=== PATIENT | female | born 1985 | race Caucasian/White ===

== ENCOUNTER → 2021-11-20 09:00 | Outpatient (BNVA) | payer OTHER, SELFPAY | PROVIDERS: PCP Nurse Practitioner Family; Visit Provider Nurse Practitioner Family ==

== ENCOUNTER → 2022-02-20 08:32 | Outpatient (BNVA) | payer OTHER, SELFPAY | PROVIDERS: PCP Nurse Practitioner Family; Visit Provider Psychiatry & Neurology Neurology | DX: G43.109 Migraine with aura, not intractable, without status migrainosus (principal); G24.3 Spasmodic torticollis | CPT/HCPCS: 64615; J0585 ==

== ENCOUNTER → 2022-07-03 09:14 | Outpatient (BNVA) | payer OTHER, SELFPAY | PROVIDERS: PCP Nurse Practitioner Family; Visit Provider Psychiatry & Neurology Neurology | DX: G43.109 Migraine with aura, not intractable, without status migrainosus (principal); G24.3 Spasmodic torticollis | CPT/HCPCS: 64615; J0585 ==

== ENCOUNTER → 2022-10-08 08:36 | Outpatient (BNVA) | payer OTHER, SELFPAY | PROVIDERS: PCP Nurse Practitioner Family; Visit Provider Psychiatry & Neurology Neurology | DX: G43.119 Migraine with aura, intractable, without status migrainosus (principal) | CPT/HCPCS: 64615; J0585 ==

== ENCOUNTER → 2022-11-06 12:58 | Outpatient (REF) | payer OTHER, SELFPAY | LOC: HO.SL 12:58 | PROVIDERS: PCP Nurse Practitioner Family; Visit Provider Nurse Practitioner Family | DX: Z13.89 Encounter for screening for other disorder (principal) ==

== ENCOUNTER → 2023-01-01 09:13 | Outpatient (BNVA) | payer OTHER, SELFPAY | PROVIDERS: PCP Nurse Practitioner Family; Visit Provider Psychiatry & Neurology Neurology | DX: G43.709 Chronic migraine without aura, not intractable, without status migrainosus (principal) | CPT/HCPCS: 64615; J0585 ==

== ENCOUNTER → 2023-04-16 16:12 | Outpatient (BNVA) | payer OTHER, SELFPAY | PROVIDERS: PCP Nurse Practitioner Family; Visit Provider Psychiatry & Neurology Neurology | DX: G43.119 Migraine with aura, intractable, without status migrainosus (principal); G43.709 Chronic migraine without aura, not intractable, without status migrainosus | CPT/HCPCS: 64615; J0585 ==

== ENCOUNTER 2023-07-28 15:36 | Outpatient (AMB) | payer OTHER, MEDICAID, SELFPAY ==
--- NOTE | 2023-07-28 15:37 | MHC.OFFVIS ---
Intake Vital Signs 07/28/23 15:38 Weight 223 lb 4 oz BP 118/78 Blood Pressure Location Lt brachial Position Sitting Pulse 86 Pulse Source Pulse Oximeter Pulse Oximetry (%) 98 Oxygen Delivery Method Room Air Intake Visit Reasons: Botox-confirmed Intake Note: Pt presents today for botox , last headache was 6/4 Allergies Sulfa (Sulfonamide Antibiotics) [SULFA(SULFONAMIDE ANTIBIOTICS)] Allergy (Severe, Verified 07/28/23 15:41) HIVES latex Allergy (Intermediate, Verified 07/28/23 15:41) Rash amphetamine [From Adderall] Allergy (Verified 07/28/23 15:41) Rash dextroamphetamine [From Adderall] Allergy (Verified 07/28/23 15:41) Rash aspartame [ASPARTAME] Adverse Reaction (Severe, Verified 07/28/23 15:41) HEADACHE [id number] Antimigraine Agents Adverse Reaction (Severe, Verified 07/28/23 15:41) Hives topiramate [From Topamax] Adverse Reaction (Intermediate, Verified 07/28/23 15:41) Confusion Medication List - Last Reconciled 07/28/23 by Octavia Hummel MD amoxicillin 500 mg PO DAILY baclofen 10 mg PO TID 30 days calcium polycarbophil (Fiber Therapy (ca polycarbophil)) 625 mg PO DAILY cariprazine (Vraylar) 6 mg PO DAILY dicyclomine 10 mg PO QID dihydroergotamine (Trudhesa) PRN; 1 actuation in each nostril x1, may repeat dose x1 after 1h Max: 4 actuations/day, 6 actuations/wk; 4 weeks dulaglutide (Trulicity) 1.5 mg subcut QWEEK empagliflozin (Jardiance) 25 mg PO DAILY flash glucose sensor (FreeStyle Monica 14 Day Sensor kit) As directed gabapentin 900 mg (3 x 300 mg) PO DAILY 30 days hydroxyzine HCl 100 mg PO DAILY levonorgestrel (Liletta) 19.5 mcg intrauterine ONCE lisdexamfetamine (Vyvanse) 20 mg PO DAILY metformin 1,000 mg PO BID onabotulinumtoxinA (Botox) 100 units subcut ONCE pantoprazole 40 mg PO BID quetiapine (Seroquel) 50 mg PO BEDTIME rimegepant (Nurtec ODT) 75 mg PO Q OTHER DAY rimegepant (Nurtec ODT) 75 mg PO Q OTHER DAY 30 days rosuvastatin 5 mg PO DAILY HPI HPI Comments History of Present Illness Details ? 38y/o female comes for treatment of migraines with botox. SInce being on botox and nurtec 75mg qod he rheadache days have decreased from 15 days per month to 0-1 headaches days a month ??? Most frequent reported adverse reactions following injection of botox for chronic migraine include neck pain (9%), headache(5%), eyelid ptosis(4%), migraine(4%), muscular weakness(4%), musculuskeletal stiffness(4%), bronchitis(3%), injection site pain (3%), musculoskeletal pain(3%), myalgia(3%), facial paresis(2%), HTN(2%) and muscle spasms(2%) were discussed in detail. ??? Botulinum toxin typeA 200units Lot no [id number] expiration Dec 2025 was diluted with 4 cc of normal saline . ??? Muscles injected- ??? Frontalis 4 sites ??? Procerus 1 site ??? Association Executive- 2 sites ??? Temporalis- 8 sites ??? Occipitalis- 6 sites ??? Cervical paraspinals- 4 sites ??? Trapezius- 6 sites- 10 units each ??? 5 units each in 31 site ??? Total use- 185units ??? Discarded-15units She did not tolerate ubrelvy , doing well with nurtec . she is allergic to triptans - sumatriptan, rizatriptan, almotriptan. she used trudhesa which helped her breakhrough pain.Nurtec helps with breakthrough headaches. 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 DTRs 2+ trhoughout. General: patient oriented x3 Office Procedures Botulinum toxin Injection 37906 - Migraine Procedure code (CPT) selection complete Office Meds onabotulinumtoxinA 200 unit solution for injection Performing Provider: Octavia Hummel MD Performing Location: [facility] Administered by: Octavia Hummel MD on 07/28/23 16:05 Dose Route Admin Location Dispensed Lot Number Expiration Date [facility] [employer] 200 unit subcut 200 units [id number] 12/10/25 0651-4177-49 ALLERGAN/BOTOX Comments: see HPI Assessment & Plan Assessment & Plan (1) Migraine with aura, intractable, without status migrainosus: Code(s): G43.119 - Migraine with aura, intractable, without status migrainosus (2) Chronic migraine without aura: Code(s): G43.709 - Chronic migraine without aura, not intractable, without status migrainosus Plan Patient tolerated the procedure well she will call with any side effects Patient s headache frequency has decreased to 0-1 migraine/month. Continue Gabapentin 900mg qam. Continue Baclofen 10mg- 1-3 x's per day. nurtec 75mg as needed for better control of migraines- Patient is allergic to triptans and did not respond to ubrelvy Try to resume yoga and core strengthening exercises. Orders: Orders AMB Botulinum toxin Injection Today G43.709 - Chronic migraine without aura, not intractable, without status migrainosus Coding Level of Care Code Est Pt Level 1 (68168) Diagnoses Migraine with aura, intractable, without status migrainosus G43.119 Chronic migraine without aura G43.709 CPT Codes Botox Injection - Botox 3: 10709 - Migraine ([id number])
[2023-07-28 15:38] VITALS: BP 118/78; PULSE 86; O2SAT 98
== END 2023-07-28 16:03 | disposition home or self-care (01) ==
PROVIDERS: PCP Nurse Practitioner Family; Visit Provider Psychiatry & Neurology Neurology
DX: G43.709 Chronic migraine without aura, not intractable, without status migrainosus (principal)
CPT/HCPCS: 64615

== ENCOUNTER → 2023-07-28 15:36 | Outpatient (BNVA) | payer OTHER, MEDICAID, SELFPAY | PROVIDERS: PCP Nurse Practitioner Family; Visit Provider Psychiatry & Neurology Neurology | DX: G43.709 Chronic migraine without aura, not intractable, without status migrainosus (principal); G43.119 Migraine with aura, intractable, without status migrainosus | CPT/HCPCS: 64615; 99211; J0585 ==

== ENCOUNTER 2023-10-27 15:00 | Outpatient (AMB) | payer OTHER, MEDICAID, SELFPAY ==
[2023-10-27 15:03] VITALS: BP 118/68; PULSE 88; O2SAT 98; BMI 34.9
--- NOTE | 2023-10-27 15:03 | MHC.OFFVIS ---
Intake Vital Signs 10/27/23 15:03 Height 5 ft 6 in Weight 216 lb 2 oz BMI 34.9 BP 118/68 Blood Pressure Location Rt brachial Position Sitting Pulse 88 Pulse Source Pulse Oximeter Pulse Oximetry (%) 98 Oxygen Delivery Method Room Air Intake Visit Reasons: Botox spasmodic torticollis vs. HARDIN - Conf Allergies Sulfa (Sulfonamide Antibiotics) [SULFA(SULFONAMIDE ANTIBIOTICS)] Allergy (Severe, Verified 10/27/23 15:06) HIVES latex Allergy (Intermediate, Verified 10/27/23 15:06) Rash amphetamine [From Adderall] Allergy (Verified 10/27/23 15:06) Rash dextroamphetamine [From Adderall] Allergy (Verified 10/27/23 15:06) Rash aspartame [ASPARTAME] Adverse Reaction (Severe, Verified 10/27/23 15:06) HEADACHE [id number] Antimigraine Agents Adverse Reaction (Severe, Verified 10/27/23 15:06) Hives topiramate [From Topamax] Adverse Reaction (Intermediate, Verified 10/27/23 15:06) Confusion Medication List - Last Reconciled 10/27/23 by Octavia Hummel MD amoxicillin 500 mg PO DAILY baclofen 10 mg PO TID 30 days cariprazine (Vraylar) 6 mg PO DAILY darifenacin ER 15 mg PO DAILY dicyclomine 10 mg PO QID dihydroergotamine (Trudhesa) PRN; 1 actuation in each nostril x1, may repeat dose x1 after 1h Max: 4 actuations/day, 6 actuations/wk; 4 weeks dulaglutide (Trulicity) 1.5 mg subcut QWEEK empagliflozin (Jardiance) 25 mg PO DAILY flash glucose sensor (FreeStyle Monica 14 Day Sensor kit) As directed gabapentin 900 mg (3 x 300 mg) PO DAILY 30 days hydroxyzine HCl 100 mg PO DAILY levonorgestrel (Liletta) 19.5 mcg intrauterine ONCE lisdexamfetamine (Vyvanse) 40 mg PO DAILY metformin 1,000 mg PO BID onabotulinumtoxinA (Botox) 100 units subcut ONCE pantoprazole 40 mg PO BID polyethylene glycol 3350 grams PO quetiapine (Seroquel) 50 mg PO BEDTIME rimegepant (Nurtec ODT) 75 mg PO Q OTHER DAY rimegepant (Nurtec ODT) 75 mg PO Q OTHER DAY 30 days rosuvastatin 5 mg PO DAILY HPI HPI Comments History of Present Illness Details ? 38y/o female comes for treatment of migraines with botox. How many migraine days prior to botox 20 migraine days a month How long do the migraines last 24-days Intensity of rlbyzwty86/10 ER visits related to migraine1-2 /year Effectiveness of botox from last two treatment(s) How many migraine days since receiving treatment: Change? in intensity of migraine? 0-1/month Change in frequency of migraine?decreased Change in use of acute medication for migraine?decreased Change in quality of life?good ER visits related to migraine?none Have at least three months elapsed since last treatment (Last botox date - frequency of injections) 07/2023 SInce being on botox and nurtec 75mg qod her headache days have decreased from 15 days per month to 0-1 headaches days a month ??? Most frequent reported adverse reactions following injection of botox for chronic migraine include neck pain (9%), headache(5%), eyelid ptosis(4%), migraine(4%), muscular weakness(4%), musculuskeletal stiffness(4%), bronchitis(3%), injection site pain (3%), musculoskeletal pain(3%), myalgia(3%), facial paresis(2%), HTN(2%) and muscle spasms(2%) were discussed in detail. ??? Botulinum toxin typeA 200units Lot no [id number] expiration February 2026 was diluted with 4 cc of normal saline . ??? Muscles injected- ??? Frontalis 4 sites ??? Procerus 1 site ??? Loading And Unloading Supervisor- 2 sites ??? Temporalis- 8 sites ??? Occipitalis- 6 sites ??? Cervical paraspinals- 4 sites ??? Trapezius- 6 sites- 10 units each ??? 5 units each in 31 site ??? Total use- 185units ??? Discarded-15units She did not tolerate ubrelvy , doing well with nurtec . she is allergic to triptans - sumatriptan, rizatriptan, almotriptan. she used trudhesa which helped her breakhrough pain.Nurtec helps with breakthrough headaches. 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 DTRs 2+ trhoughout. General: patient oriented x3 Office Procedures Botulinum toxin Injection 19804 - Migraine Procedure code (CPT) selection complete Office Meds onabotulinumtoxinA 200 unit solution for injection Performing Provider: Octavia Hummel MD Performing Location[place] [facility] Administered by: Octavia Hummel MD on 10/27/23 15:30 Dose Route Admin Location Dispensed Lot Number Expiration Date [facility] Technologist Development 185 unit IM 200 units [id number] 02/07/26 6560-8718-06 ALLERGAN/BOTOX Comments: see HPI Assessment & Plan Assessment & Plan (1) Migraine with aura, intractable, without status migrainosus: Code(s): G43.119 - Migraine with aura, intractable, without status migrainosus (2) Chronic migraine without aura: Code(s): G43.709 - Chronic migraine without aura, not intractable, without status migrainosus Plan Patient tolerated the procedure well she will call with any side effects Patient s headache frequency has decreased to 0-1 migraine/month. Continue Gabapentin 900mg qam. Continue Baclofen 10mg- 1-3 x's per day. nurtec 75mg as needed for better control of migraines- Patient is allergic to triptans and did not respond to ubrelvy Try to resume yoga and core strengthening exercises. Orders: Orders AMB Botulinum toxin Injection Today G43.709 - Chronic migraine without aura, not intractable, without status migrainosus Coding Level of Care Code Est Pt Level 1 (23249) Diagnoses Migraine with aura, intractable, without status migrainosus G43.119 Chronic migraine without aura G43.709 CPT Codes Botox Injection - Botox 3: 56944 - Migraine ([id number])
== END 2023-10-27 15:27 | disposition home or self-care (01) ==
PROVIDERS: PCP Nurse Practitioner Family; Visit Provider Psychiatry & Neurology Neurology
DX: G43.119 Migraine with aura, intractable, without status migrainosus (principal)
CPT/HCPCS: 64615

== ENCOUNTER → 2023-10-27 15:00 | Outpatient (BNVA) | payer OTHER, MEDICAID, SELFPAY | PROVIDERS: PCP Nurse Practitioner Family; Visit Provider Psychiatry & Neurology Neurology | DX: G43.709 Chronic migraine without aura, not intractable, without status migrainosus (principal); G43.119 Migraine with aura, intractable, without status migrainosus; Z79.899 Other long term (current) drug therapy | CPT/HCPCS: 64615; 99211; J0585 ==

== ENCOUNTER 2023-12-01 15:00 | Outpatient (AMB) | payer OTHER, MEDICAID, SELFPAY ==
--- NOTE | 2023-12-01 15:06 | MHC.OFFVIS ---
Intake Vital Signs 12/01/23 15:07 Height 5 ft 6 in Weight 216 lb BMI 34.9 BP 120/84 Blood Pressure Location Rt brachial Position Sitting Pulse 97 Pulse Source Pulse Oximeter Pulse Oximetry (%) 99 Oxygen Delivery Method Room Air Intake Visit Reasons: follow up Intake Note: Patient presents for follow up. I keep knocking out behind the wheel, I keep asking for narcolepsy test. Allergies Sulfa (Sulfonamide Antibiotics) [SULFA(SULFONAMIDE ANTIBIOTICS)] Allergy (Severe, Verified 12/01/23 15:09) HIVES latex Allergy (Intermediate, Verified 12/01/23 15:09) Rash amphetamine [From Adderall] Allergy (Verified 12/01/23 15:09) Rash dextroamphetamine [From Adderall] Allergy (Verified 12/01/23 15:09) Rash aspartame [ASPARTAME] Adverse Reaction (Severe, Verified 12/01/23 15:09) HEADACHE [id number] Antimigraine Agents Adverse Reaction (Severe, Verified 12/01/23 15:09) Hives topiramate [From Topamax] Adverse Reaction (Intermediate, Verified 12/01/23 15:09) Confusion Medication List - Last Reconciled 12/01/23 by MIAH Ceja amoxicillin 500 mg PO DAILY baclofen 10 mg PO TID 30 days cariprazine (Vraylar) 6 mg PO DAILY darifenacin ER 15 mg PO DAILY dicyclomine 10 mg PO QID dihydroergotamine (Trudhesa) PRN; 1 actuation in each nostril x1, may repeat dose x1 after 1h Max: 4 actuations/day, 6 actuations/wk; 4 weeks dulaglutide (Trulicity) 1.5 mg subcut QWEEK empagliflozin (Jardiance) 25 mg PO DAILY flash glucose sensor (FreeStyle Monica 14 Day Sensor kit) As directed gabapentin 900 mg (3 x 300 mg) PO DAILY 30 days hydroxyzine HCl 100 mg PO DAILY levonorgestrel (Liletta) 19.5 mcg intrauterine ONCE lisdexamfetamine (Vyvanse) 40 mg PO DAILY lithium carbonate ER 300 mg PO BEDTIME metformin 1,000 mg PO BID onabotulinumtoxinA (Botox) 100 units subcut ONCE pantoprazole 40 mg PO BID polyethylene glycol 3350 grams PO quetiapine (Seroquel) 50 mg PO BEDTIME rimegepant (Nurtec ODT) 75 mg PO Q OTHER DAY rimegepant (Nurtec ODT) 75 mg PO Q OTHER DAY 30 days rosuvastatin 5 mg PO DAILY HPI HPI Comments History of Present Illness Details 38-yr-old female presents for f/u visit. Pt is concerned about increasing daytime sleepiness. 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 She feels a warm sensation come over her, and she falls into a microsleep even if in public. In the evening at home, if she sits down after 6pm, she will just fall asleep for hours. She is trying to optimize her sleep hygiene practices. Her psychiatrist recently increased her Vyvanse to 40mg qam to help with the excessive daytime sleepiness. Patient feels that has helped some, however every time the dose has been increased it is helped for short period time and then the effect has waned. She is followed closely by psychiatry and her therapist for management of her bipolar d/o and ADHD- which she feels is currently better controlled now. Endorses mild snoring. She may answer people in her sleep. Endorses sleep paralysis w/ seeing a black man standing in the corner- infrequent, more when she was younger. Endorses leg cramps. She does endorse episodes of dropping things- notes that she has a h/o left thoracic outlet syndrome. She does not believe that she has episodes of transient weakness a/w strong emotions. She has had sleep studies in the past- has not shown severe sleep apnea. Last HST, > 10 yrs ago, did not record sufficient data as pt's animals removed the tubing from her- she still has these animals. 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 Substance Use Type: Marijuana Questionnaire [place] Sleepiness Scale Questions Sitting and reading: high chance of dozing Watching TV: high chance of dozing Sitting inactive in a theater, movie etc.: would never doze As a passenger in a car for an hour without break: high chance of dozing Lying down in the afternoon when circumstances permit: high chance of dozing Sitting and talking to someone: slight chance of dozing Sitting quietly after lunch without alcohol: high chance of dozing In a car, while stopped for a few minutes in the traffic: would never doze ESS < 10: normal, ESS > 12: pathologic: 16 Physical Exam Vital Signs: Last Vital Signs Pulse 97 12/01/23 15:07 BP 120/84 12/01/23 15:07 Pulse Ox 99 12/01/23 15:07 Oxygen Delivery Method Room Air 12/01/23 15:07 BMI result Body Mass Index 34.9 Const General: cooperative and no acute distress Orientation/consciousness: patient oriented x3 Resp Effort & Inspection: normal respiratory effort and able to speak in complete sentences Neuro General: patient oriented x3 Cranial nerves: Yes CN's II-XII intact bilaterally Cognition (Neuro): normal cognition Psych Appearance: grossly normal Mental Status: mental status grossly normal Speech and movement: Normal speech and movement present Affect: normal affect Attitude: cooperative Assessment & Plan Assessment & Plan (1) Excessive daytime sleepiness: Code(s): G47.19 - Other hypersomnia (2) Sleep difficulties: Code(s): G47.9 - Sleep disorder, unspecified (3) Snoring: Code(s): R06.83 - Snoring (4) Spasmodic torticollis: Comment: left laterocollis Code(s): G24.3 - Spasmodic torticollis (5) 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 However some of her cataplexy like symptoms may also be explained by a history of left thoracic outlet syndrome and spasmodic torticollis. Patient is advised to undergo in-lab sleep study to assess for any underlying sleep apnea or periodic limb movements of sleep which may be affecting her sleep quality. A home sleep study is contraindicated for this patient as she has multiple animals in her home which which has interfered with conducting home sleep studies in the past. Discussed that if the in-lab sleep study is normal, I would advise patient to undergo an MSLT sleep study, however patient would need to be weaned off of all of her psychiatric medications for at least 3 weeks prior to the MSLT study. 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 In the meantime patient should continue Vyvanse 40 mg daily in the morning. Avoid driving long distances. Continue to optimize sleep hygiene practices. Follow-up in 4 months or sooner as needed This note is constructed using voice recognition software. While every effort has been made to ensure accuracy, dye tub operator errors may have been included. Orders: Orders RT PSG in-lab sleep study 12/01/23 G47.19 - Other hypersomnia, 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, G47.9 - Sleep disorder, unspecified, R06.83 - Snoring Coding Level of Care Code Est Pt Level 4 (20505) Diagnoses Excessive daytime sleepiness G47.19 Sleep difficulties G47.9 Snoring R06.83 Spasmodic torticollis G24.3 Cataplexy G47.411
[2023-12-01 15:07] VITALS: BP 120/84; PULSE 97; O2SAT 99; BMI 34.9
== END 2023-12-01 15:52 | disposition home or self-care (01) ==
PROVIDERS: PCP Nurse Practitioner Family; Visit Provider Nurse Practitioner Family
DX: G47.19 Other hypersomnia (principal); G47.9 Sleep disorder, unspecified; R06.83 Snoring; G24.3 Spasmodic torticollis; G47.411 Narcolepsy with cataplexy
CPT/HCPCS: 99214

== ENCOUNTER → 2023-12-01 15:00 | Outpatient (BNVA) | payer OTHER, MEDICAID, SELFPAY | PROVIDERS: PCP Nurse Practitioner Family; Visit Provider Nurse Practitioner Family ==

== ENCOUNTER → 2023-12-11 20:30 | Outpatient (REF) | payer OTHER, MEDICAID, SELFPAY | LOC: HO.SL 20:30 | PROVIDERS: PCP Nurse Practitioner Family; Visit Provider Nurse Practitioner Family | DX: G47.411 Narcolepsy with cataplexy (principal); G47.19 Other hypersomnia; R06.83 Snoring | CPT/HCPCS: 95810 ==

== ENCOUNTER → 2023-12-11 22:19 | Outpatient (BNV) | payer OTHER, MEDICAID, SELFPAY | PROVIDERS: PCP Nurse Practitioner Family; Visit Provider Internal Medicine | DX: R06.83 Snoring (principal) | CPT/HCPCS: 95810 ==

== ENCOUNTER 2024-01-26 15:23 | Outpatient (AMB) | payer OTHER, MEDICAID, SELFPAY ==
--- NOTE | 2024-01-26 15:27 | A.OFFVIS_ITS ---
Intake Vital Signs 01/26/24 15:28 Height 5 ft 6 in Weight 215 lb BMI 34.7 BP 108/62 Blood Pressure Location Rt brachial Position Sitting Respiration 16 Pulse 82 Pulse Source Pulse Oximeter Pulse Oximetry (%) 98 Oxygen Delivery Method Room Air Intake Visit Reasons: Botox-CONF Intake Note: Pt presents to the office for Botox injections. Occupational Analyst Required: No Allergies Sulfa (Sulfonamide Antibiotics) [SULFA(SULFONAMIDE ANTIBIOTICS)] Allergy (Severe, Verified 01/26/24 15:36) HIVES latex Allergy (Intermediate, Verified 01/26/24 15:36) Rash amphetamine [From Adderall] Allergy (Verified 01/26/24 15:36) Rash dextroamphetamine [From Adderall] Allergy (Verified 01/26/24 15:36) Rash aspartame [ASPARTAME] Adverse Reaction (Severe, Verified 01/26/24 15:36) HEADACHE Dqqcsorp-5-UL0 Antimigraine Agents Adverse Reaction (Severe, Verified 01/26/24 15:36) Hives topiramate [From Topamax] Adverse Reaction (Intermediate, Verified 01/26/24 15:36) Confusion valium Allergy (Mild, Uncoded 01/26/24 15:36) Fever Medication List - Last Reconciled 01/26/24 by Octavia Hummel MD amoxicillin 500 mg PO DAILY baclofen 10 mg PO TID 30 days cariprazine (Vraylar) 6 mg PO DAILY darifenacin ER 15 mg PO DAILY dicyclomine 10 mg PO QID dihydroergotamine (Trudhesa) PRN; 1 actuation in each nostril x1, may repeat dose x1 after 1h Max: 4 actuations/day, 6 actuations/wk; 4 weeks dulaglutide (Trulicity) 1.5 mg subcut QWEEK empagliflozin (Jardiance) 25 mg PO DAILY flash glucose sensor (FreeStyle Monica 14 Day Sensor kit) As directed gabapentin 900 mg (3 x 300 mg) PO DAILY 30 days hydroxyzine HCl 100 mg PO DAILY levonorgestrel (Liletta) 19.5 mcg intrauterine ONCE lisdexamfetamine (Vyvanse) 40 mg PO DAILY lithium carbonate ER 300 mg PO BEDTIME metformin 1,000 mg PO BID onabotulinumtoxinA (Botox) 100 units subcut ONCE pantoprazole 40 mg PO BID polyethylene glycol 3350 grams PO quetiapine (Seroquel) 50 mg PO BEDTIME rimegepant (Nurtec ODT) 75 mg PO Q OTHER DAY rimegepant (Nurtec ODT) 75 mg PO Q OTHER DAY 30 days rosuvastatin 5 mg PO DAILY HPI HPI Comments History of Present Illness Details ? 38y/o female comes for treatment of migraines with botox. How many migraine days prior to botox 20 migraine days a month How long do the migraines last 24-days Intensity of [id number]/ ER visits related to migraine1-2 /year Effectiveness of botox from last two treatment(s) How many migraine days since receiving treatment: Change? in intensity of migraine? 0-1/month Change in frequency of migraine?decreased Change in use of acute medication for migraine?decreased Change in quality of life?good ER visits related to migraine?none Have at least three months elapsed since last treatment (Last botox date - frequency of injections) 07/2023 SInce being on botox and nurtec 75mg qod her headache days have decreased from 15 days per month to 0-1 headaches days a month ??? Most frequent reported adverse reactions following injection of botox for chronic migraine include neck pain (9%), headache(5%), eyelid ptosis(4%), migraine(4%), muscular weakness(4%), musculuskeletal stiffness(4%), bronchitis(3%), injection site pain (3%), musculoskeletal pain(3%), myalgia(3%), facial paresis(2%), HTN(2%) and muscle spasms(2%) were discussed in detail. ??? Botulinum toxin typeA 200units Lot no [id number] expiration April 2026 was diluted with 4 cc of normal saline . ??? Muscles injected- ??? Frontalis 4 sites ??? Procerus 1 site ??? Integration Lead- 2 sites ??? Temporalis- 8 sites ??? Occipitalis- 6 sites ??? Cervical paraspinals- 4 sites ??? Trapezius- 6 sites- 10 units each ??? 5 units each in 31 site ??? Total use- 185units ??? Discarded-15units She did not tolerate ubrelvy , doing well with nurtec . she is allergic to triptans - sumatriptan, rizatriptan, almotriptan. she used trudhesa which helped her breakhrough pain.Nurtec helps with breakthrough headaches. 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 DTRs 2+ trhoughout. General: patient oriented x3 Office Procedures Botulinum toxin Injection 52088 - Migraine Procedure code (CPT) selection complete Office Meds onabotulinumtoxinA 200 unit solution for injection Performing Provider: Octavia Hummel MD Performing Location: [facility] [place] [facility] Administered by: Octavia Hummel MD on 01/26/24 15:53 Dose Route Admin Location Dispensed Lot Number Expiration Date [facility] Manager Corporate Responsibility 185 unit IM 200 units [id number] 04/09/26 4643-8115-39 ALLERGAN/BOTOX Comments: see HPI Assessment & Plan Assessment & Plan (1) Migraine with aura, intractable, without status migrainosus: Code(s): G43.119 - Migraine with aura, intractable, without status migrainosus (2) Chronic migraine without aura: Code(s): G43.709 - Chronic migraine without aura, not intractable, without status migrainosus Plan Patient tolerated the procedure well she will call with any side effects Patient s headache frequency has decreased to 0-1 migraine/month. Continue Gabapentin 900mg qam. Continue Baclofen 10mg- 1-3 x's per day. nurtec 75mg as needed for better control of migraines- Patient is allergic to triptans and did not respond to ubrelvy Try to resume yoga and core strengthening exercises. Orders: Orders AMB Botulinum toxin Injection Today G43.709 - Chronic migraine without aura, not intractable, without status migrainosus Coding Level of Care Code Est Pt Level 1 (86754) Diagnoses Migraine with aura, intractable, without status migrainosus G43.119 Chronic migraine without aura G43.709 CPT Codes Botox Injection - Botox 3: 32647 - Migraine ([id number])
[2024-01-26 15:28] VITALS: BP 108/62; PULSE 82; RESP 16; O2SAT 98; BMI 34.7
== END 2024-01-26 15:56 | disposition home or self-care (01) ==
PROVIDERS: PCP Nurse Practitioner Family; Visit Provider Psychiatry & Neurology Neurology
DX: G43.119 Migraine with aura, intractable, without status migrainosus (principal)
CPT/HCPCS: 64615

== ENCOUNTER → 2024-01-26 15:23 | Outpatient (BNVA) | payer OTHER, MEDICAID, SELFPAY | PROVIDERS: PCP Nurse Practitioner Family; Visit Provider Psychiatry & Neurology Neurology | DX: G43.E19 Chronic migraine with aura, intractable, without status migrainosus (principal); Z79.899 Other long term (current) drug therapy | CPT/HCPCS: 64615; 99211; J0585 ==

== ENCOUNTER 2024-03-29 15:05 | Outpatient (AMB) | payer OTHER, MEDICAID, SELFPAY ==
--- NOTE | 2024-03-29 15:08 | A.OFFVIS_ITS ---
Vital Signs 03/29/24 15:19 Height 5 ft 6 in Weight 212 lb 6 oz BMI 34.3 BP 115/80 Blood Pressure Location Rt brachial Position Sitting Pulse 93 Pulse Source Pulse Oximeter Pulse Oximetry (%) 97 Oxygen Delivery Method Room Air Intake Visit Reasons: 4 mo f/u-CONF Intake Note: Patient presents for 4 months f/u. keeps falling asleep in the afternoon. Would like a sleep study. Allergies Sulfa (Sulfonamide Antibiotics) [SULFA(SULFONAMIDE ANTIBIOTICS)] Allergy (Severe, Verified 01/26/24 15:36) HIVES latex Allergy (Intermediate, Verified 01/26/24 15:36) Rash amphetamine [From Adderall] Allergy (Verified 01/26/24 15:36) Rash dextroamphetamine [From Adderall] Allergy (Verified 01/26/24 15:36) Rash aspartame [ASPARTAME] Adverse Reaction (Severe, Verified 01/26/24 15:36) HEADACHE Xeeowcym-2-DM3 Antimigraine Agents Adverse Reaction (Severe, Verified 01/26/24 15:36) Hives topiramate [From Topamax] Adverse Reaction (Intermediate, Verified 01/26/24 15:36) Confusion Bensodezapine Allergy (Severe, Uncoded 03/29/24 15:14) Fever valium Allergy (Mild, Uncoded 01/26/24 15:36) Fever Medication List - Last Reconciled 03/29/24 by MIAH Ceja amoxicillin 500 mg PO DAILY baclofen 10 mg PO TID 30 days cariprazine (Vraylar) 6 mg PO DAILY darifenacin ER 15 mg PO DAILY dicyclomine 10 mg PO QID dihydroergotamine (Trudhesa) PRN; 1 actuation in each nostril x1, may repeat dose x1 after 1h Max: 4 actuations/day, 6 actuations/wk; 4 weeks dulaglutide (Trulicity) 1.5 mg subcut QWEEK empagliflozin (Jardiance) 25 mg PO DAILY flash glucose sensor (FreeStyle Monica 14 Day Sensor kit) As directed gabapentin 900 mg (3 x 300 mg) PO DAILY 30 days hydroxyzine HCl 100 mg PO DAILY levonorgestrel (Liletta) 19.5 mcg intrauterine ONCE lisdexamfetamine (Vyvanse) 40 mg PO DAILY lithium carbonate ER 300 mg PO BEDTIME melatonin mg PO metformin 1,000 mg PO BID onabotulinumtoxinA (Botox) 100 units subcut ONCE pantoprazole 40 mg PO BID polyethylene glycol 3350 grams PO quetiapine (Seroquel) 50 mg PO BEDTIME rimegepant (Nurtec ODT) 75 mg PO Q OTHER DAY 30 days rimegepant (Nurtec ODT) 75 mg PO Q OTHER DAY rosuvastatin 5 mg PO DAILY HPI Comments Details: 39-yr-old female presents for f/u visit for sleep difficulties. Interval in-lab PSG was negative for sleep apnea or PLMS d/o- w/ AHI 0.2/hr, O2 naidr 90%, and PLMS arousal index 2.2/hr. Pt reports she is having increasing hypersomnia, which is becoming more difficult to manage. She is easily able to fall asleep when inactive, even in the middle of eating. She continues on Vyvanse- for hypersomnia/ADHD, and Vraylar and Lithoum for her bipolar tx- per her psychiatric provider. She does wonder if she still needs the Gabapentin- was started for her thoracuc outlet syndrome s/s- however she feels these are better since she had sx intervention. Endorses mild snoring. She may answer people in her sleep. Endorses sleep paralysis w/ seeing a black man standing in the corner- infrequent, more so when she was younger. Endorses leg cramps. She does endorse episodes of dropping things- notes that she has a h/o left thoracic outlet syndrome. She does not believe that she has episodes of transient weakness a/w strong emotions. 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 Substance Use Type: Marijuana Physical Exam Vital Signs: Last Vital Signs Pulse 93 03/29/24 15:19 BP 115/80 03/29/24 15:19 Pulse Ox 97 03/29/24 15:19 Oxygen Delivery Method Room Air 03/29/24 15:19 BMI result Body Mass Index 34.3 Const General: cooperative and no acute distress Orientation/consciousness: patient oriented x3 Resp Effort & Inspection: normal respiratory effort and able to speak in complete sentences Neuro General: patient oriented x3 Cranial nerves: Yes CN's II-XII intact bilaterally Cognition (Neuro): normal cognition Psych Appearance: grossly normal Mental Status: mental status grossly normal Speech and movement: Normal speech and movement present Affect: normal affect Attitude: cooperative Assessment & Plan Assessment & Plan (1) Excessive daytime sleepiness: Code(s): G47.19 - Other hypersomnia Category: Medical (2) 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 She has symptoms suggestive of cataplexy. Pt is advised to undergo: LP for CSF studies- Basic CSF studies and Orexin-A/Hypocretin-1, CSF analysis- to assess for narcolepsy type I. Reviewed risks/benefits of LP, including but not limited to post-LP low-pressure headache. Reviewed post-LP care- rest, fluids, caffeiene, adn will rpovide short course of prn Fioricet for rescue. In-lab PSG w/ MSLT to assess fro narcolepsy versus hypersomnia. UA tox screen ordered- due day of MSLT. Wean off Gabapentin- decrease daily dose by 100mg q week until completely weaned off. Additional Gabapentin 100mg capsule order sent to facilitate this. Once MSLT booked, pt will need to slowly wean off her Vyvanse, Freer and Vraylar w/ goal of stopping at least 2-3 weeks prior to undergoing MSLT. Follow-up upon review of above. 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 CSF Total Protein Today G24.3 - Spasmodic torticollis, G43.709 - Chronic migraine without aura, not intractable, without status migrainosus, G47.19 - Other hypersomnia, 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 Immunofixation, CSF Today G24.3 - Spasmodic torticollis, G43.709 - Chronic migraine without aura, not intractable, without status migrainosus, G47.19 - Other hypersomnia, 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 Oligoclonal Banding Today G24.3 - Spasmodic torticollis, G43.709 - Chronic migraine without aura, not intractable, without status migrainosus, G47.19 - Other hypersomnia, 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, H54.62 - Unqualified visual loss, left eye, normal vision right eye Drug Screen Urine Today G47.19 - Other hypersomnia Other Ref Test - Misc Today G47.19 - Other hypersomnia, 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 RT sleep testing - MSLT 03/29/24 G47.19 - Other hypersomnia, 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 CSF Cell Ct w Diff X2 Today G24.3 - Spasmodic torticollis, G43.709 - Chronic migraine without aura, not intractable, without status migrainosus, G47.19 - Other hypersomnia, 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 200 mg (2 x 100 mg) PO DAILY 30 days 60 caps 3RF uuactpdhzm-bzpytnuudmxgv-sjhi 50-325-40 mg 1 - 2 caps PO Q4-6H 7 days PRN 24 caps 0RF post-LP headache MDD 6 Changed From gabapentin 900 mg (3 x 300 mg) PO DAILY 30 days 90 caps 3RF To gabapentin 600 mg (2 x 300 mg) PO DAILY 30 days 60 caps 3RF Coding Level of Care Code Est Pt Level 4 (26160) Diagnoses Excessive daytime sleepiness G47.19 Cataplexy G47.411 Sleep difficulties G47.9 Chronic migraine without aura G43.709
[2024-03-29 15:19] VITALS: BP 115/80; PULSE 93; O2SAT 97; BMI 34.3
== END 2024-03-29 16:04 | disposition home or self-care (01) ==
PROVIDERS: PCP Nurse Practitioner Family; Visit Provider Nurse Practitioner Family
DX: G47.19 Other hypersomnia (principal); G47.411 Narcolepsy with cataplexy; G47.9 Sleep disorder, unspecified; G43.709 Chronic migraine without aura, not intractable, without status migrainosus
CPT/HCPCS: 99214

== ENCOUNTER → 2024-03-29 15:05 | Outpatient (BNVA) | payer OTHER, MEDICAID, SELFPAY | PROVIDERS: PCP Nurse Practitioner Family; Visit Provider Nurse Practitioner Family ==

== ENCOUNTER 2024-04-27 08:57 | Outpatient (AMB) | payer OTHER, MEDICAID, SELFPAY ==
--- NOTE | 2024-04-27 09:05 | MHC.OFFVIS ---
Vital Signs 04/27/24 09:12 Height 5 ft 6 in Weight 210 lb 4 oz BMI 33.9 BP 115/70 Blood Pressure Location Rt brachial Position Sitting Pulse 89 Pulse Source Pulse Oximeter Pulse Oximetry (%) 98 Oxygen Delivery Method Room Air Intake Visit Reasons: Botox - Confirmed Intake Note: Patient presents for Botox. Allergies Sulfa (Sulfonamide Antibiotics) [SULFA(SULFONAMIDE ANTIBIOTICS)] Allergy (Severe, Verified 04/27/24 09:11) HIVES latex Allergy (Intermediate, Verified 04/27/24 09:11) Rash amphetamine [From Adderall] Allergy (Verified 04/27/24 09:11) Rash dextroamphetamine [From Adderall] Allergy (Verified 04/27/24 09:11) Rash aspartame [ASPARTAME] Adverse Reaction (Severe, Verified 04/27/24 09:11) HEADACHE Jrinfumw-3-PP8 Antimigraine Agents Adverse Reaction (Severe, Verified 04/27/24 09:11) Hives topiramate [From Topamax] Adverse Reaction (Intermediate, Verified 04/27/24 09:11) Confusion Bensodezapine Allergy (Severe, Uncoded 03/29/24 15:14) Fever valium Allergy (Mild, Uncoded 01/26/24 15:36) Fever Medication List - Last Reconciled 04/27/24 by Octavia Hummel MD amoxicillin 500 mg PO DAILY baclofen 10 mg PO TID 30 days ynvtttewol-mruovnjuugxfc-uvrh 50-325-40 mg 1 - 2 caps PO Q4-6H PRN 7 days MDD 6 cariprazine (Vraylar) 6 mg PO DAILY dicyclomine 10 mg PO QID dihydroergotamine (Trudhesa) PRN; 1 actuation in each nostril x1, may repeat dose x1 after 1h Max: 4 actuations/day, 6 actuations/wk; 4 weeks dulaglutide (Trulicity) 1.5 mg subcut QWEEK empagliflozin (Jardiance) 25 mg PO DAILY flash glucose sensor (FreeStyle Monica 14 Day Sensor kit) As directed gabapentin 200 mg (2 x 100 mg) PO DAILY 30 days gabapentin 600 mg (2 x 300 mg) PO DAILY 30 days hydroxyzine HCl 100 mg PO DAILY levonorgestrel (Liletta) 19.5 mcg intrauterine ONCE lisdexamfetamine (Vyvanse) 40 mg PO DAILY lithium carbonate ER 300 mg PO BEDTIME melatonin mg PO metformin 1,000 mg PO BID onabotulinumtoxinA (Botox) 100 units subcut ONCE pantoprazole 40 mg PO BID polyethylene glycol 3350 grams PO rimegepant (Nurtec ODT) 75 mg PO Q OTHER DAY 30 days rimegepant (Nurtec ODT) 75 mg PO Q OTHER DAY rosuvastatin 5 mg PO DAILY HPI Comments Details: ? 39y/o female comes for treatment of migraines with botox. How many migraine days prior to botox 20 migraine days a month How long do the migraines last 24-days Intensity of jjhqqizu77/10 ER visits related to migraine1-2 /year Effectiveness of botox from last two treatment(s) How many migraine days since receiving treatment: Change? in intensity of migraine? 0-1/month Change in frequency of migraine?decreased Change in use of acute medication for migraine?decreased Change in quality of life?good ER visits related to migraine?none Have at least three months elapsed since last treatment (Last botox date - frequency of injections) 01/30 SInce being on botox and nurtec 75mg qod her headache days have decreased from 15 days per month to 0-1 headaches days a month ??? Most frequent reported adverse reactions following injection of botox for chronic migraine include neck pain (9%), headache(5%), eyelid ptosis(4%), migraine(4%), muscular weakness(4%), musculuskeletal stiffness(4%), bronchitis(3%), injection site pain (3%), musculoskeletal pain(3%), myalgia(3%), facial paresis(2%), HTN(2%) and muscle spasms(2%) were discussed in detail. ??? Botulinum toxin typeA 200units Lot no [id number] expiration April 2026 was diluted with 4 cc of normal saline . ??? Muscles injected- ??? Frontalis 4 sites ??? Procerus 1 site ??? Deputy Coroner Investigator- 2 sites ??? Temporalis- 8 sites ??? Occipitalis- 6 sites ??? Cervical paraspinals- 4 sites ??? Trapezius- 6 sites- 10 units each ??? 5 units each in 31 site ??? Total use- 185units ??? Discarded-15units She did not tolerate ubrelvy , doing well with nurtec . she is allergic to triptans - sumatriptan, rizatriptan, almotriptan. she used trudhesa which helped her breakhrough pain.Nurtec helps with breakthrough headaches. 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 Substance Use Type: Marijuana Physical Exam Vital Signs: Last Vital Signs Pulse 89 04/27/24 09:12 BP 115/70 04/27/24 09:12 Pulse Ox 98 04/27/24 09:12 Oxygen Delivery Method Room Air 04/27/24 09:12 BMI result Body Mass Index 33.9 Const General: cooperative and no acute distress Orientation/consciousness: patient oriented x3 Resp Effort & Inspection: normal respiratory effort and able to speak in complete sentences Neuro General: patient oriented x3 Cranial nerves: Yes CN's II-XII intact bilaterally Cognition (Neuro): normal cognition Psych Appearance: grossly normal Mental Status: mental status grossly normal Speech and movement: Normal speech and movement present Affect: normal affect Attitude: cooperative Office Procedures Botulinum toxin Injection 22945 - Migraine Procedure code (CPT) selection complete Office Meds onabotulinumtoxinA 200 unit solution for injection Performing Provider: Octavia Hummel MD [place] [facility] [place] [facility] Administered by: Octavia Hummel MD on 04/27/24 09:37 Dose Route Admin Location Dispensed Lot Number Expiration Date [facility] Database Security Expert 185 unit subcut 200 units [id number] 05/09/26 8050-8667-31 ALLERGAN/BOTOX Comments: see HPI Assessment & Plan Assessment & Plan (1) Migraine with aura, intractable, without status migrainosus: Code(s): G43.119 - Migraine with aura, intractable, without status migrainosus Category: Medical (2) Chronic migraine without aura: Code(s): G43.709 - Chronic migraine without aura, not intractable, without status migrainosus Category: Medical Plan Patient tolerated the procedure well she will call with any side effects Patient s headache frequency has decreased to 0-1 migraine/month. Continue Gabapentin 900mg qam. Continue Baclofen 10mg- 1-3 x's per day. nurtec 75mg as needed for better control of migraines- Patient is allergic to triptans and did not respond to ubrelvy Orders: Orders AMB Botulinum toxin Injection Today G43.709 - Chronic migraine without aura, not intractable, without status migrainosus Medications: New onabotulinumtoxinA 200 units subcut ONCE 1 ea 0RF migraine G43.709 - Chronic migraine without aura, not intractable, without status migrainosus Coding Level of Care Code Est Pt Level 1 (24651) Diagnoses Migraine with aura, intractable, without status migrainosus G43.119 Chronic migraine without aura G43.709 CPT Codes Botox Injection - Botox 3: 20121 - Migraine ([id number])
[2024-04-27 09:12] VITALS: BP 115/70; PULSE 89; O2SAT 98; BMI 33.9
== END 2024-04-27 09:29 | disposition home or self-care (01) ==
PROVIDERS: PCP Nurse Practitioner Family; Visit Provider Psychiatry & Neurology Neurology
DX: G43.E11 Chronic migraine with aura, intractable, with status migrainosus (principal)
CPT/HCPCS: 64615

== ENCOUNTER → 2024-04-27 08:57 | Outpatient (BNVA) | payer OTHER, MEDICAID, SELFPAY | PROVIDERS: PCP Nurse Practitioner Family; Visit Provider Psychiatry & Neurology Neurology | DX: G43.709 Chronic migraine without aura, not intractable, without status migrainosus (principal); G43.119 Migraine with aura, intractable, without status migrainosus; Z79.899 Other long term (current) drug therapy | CPT/HCPCS: 64615; 99211; J0585 ==

== ENCOUNTER 2024-05-03 09:31 | Outpatient (REF) | payer OTHER, MEDICAID, SELFPAY ==
--- NOTE | ~2024-05-03 | MR_ITS ---
EXAMINATION: MR BRAIN WITHOUT AND WITH CONTRAST CLINICAL INFORMATION: Narcolepsy with cataplexy. Worsening over last 3 years. Posterior pain and pressure/headaches. COMPARISON: No prior MRI. Correlation made with CT head 11/20/2014. TECHNIQUE: Multiplanar, multisequence MRI of the brain was obtained before and after the intravenous administration of 10 mL Gadavist. Exam was performed on a 1.5 Tracie unit. FINDINGS: There is no diffusion restriction. There is no intracranial hemorrhage, acute infarction, mass effect, or edema. There is no extra-axial fluid collection. Ventricles, sulci, and cisterns are normal in size and configuration for patient age. No shift of midline. No abnormal hemosiderin deposition is identified. There are a few scattered punctate foci of white matter T2 hyperintensity in the periventricular, subcortical, and hemispheric deep white matter, nonspecific. After the administration of contrast, no abnormal intra or extra-axial contrast enhancement is identified. Midline structures appear normally formed. Partial empty sella noted. Posterior fossa structures appear normal. Cerebellar tonsils are appropriately located. Major flow voids are preserved within the skull base. The globes and orbital contents demonstrate no abnormalities. Paranasal sinuses are clear bilaterally. Nasal septum is midline without spur. The mastoids and tympanic cavities are normally aerated. Extracranial soft tissues demonstrate no abnormalities. No suspicious bone marrow changes are evident. Atlantoaxial joint is normal. MR/MR head/brain wo/w con IMPRESSION: 1. No evidence of intracranial hemorrhage, acute infarction, mass effect, or edema. No abnormal contrast enhancement. 2. A few scattered punctate foci of white matter T2 hyperintensity in the supratentorial deep white matter, nonspecific, but most likely related to small vessel ischemia. No distribution or morphology specific to demyelinating disease. 3. Ancillary findings as detailed.
[2024-05-03] MEDS: gadobutroL 10 ML VIAL IVPUSH (10:39)
== END 2024-05-03 09:32 | disposition home or self-care (01) ==
LOC: HO.MRI 09:31
PROVIDERS: PCP Nurse Practitioner Family; Visit Provider Nurse Practitioner Family
DX: G47.411 Narcolepsy with cataplexy (principal); G24.3 Spasmodic torticollis; G43.709 Chronic migraine without aura, not intractable, without status migrainosus; G47.10 Hypersomnia, unspecified; R53.1 Weakness
CPT/HCPCS: 70553; A9585

== ENCOUNTER → 2024-05-03 10:13 | Outpatient (BNV) | payer OTHER, MEDICAID, SELFPAY | PROVIDERS: PCP Nurse Practitioner Family; Visit Provider Radiology Diagnostic Radiology | DX: G47.411 Narcolepsy with cataplexy (principal) | CPT/HCPCS: 70553 ==

== ENCOUNTER 2024-05-06 08:58 | Day surgery (SDC) | payer OTHER, MEDICAID, SELFPAY ==
--- NOTE | ~2024-05-06 | FL_ITS ---
FLUOROSCOPIC GUIDED LUMBAR PUNCTURE INDICATION: Concern for narcolepsy TECHNIQUE: Risks and benefits and possible complications were discussed with the patient and the consent form was signed. Patient was placed prone on the fluoroscopy table. The back was prepped and draped in routine sterile fashion. Betadine was used as a skin antiseptic. Utilizing fluoroscopic guidance, the L4-L5 interlaminar space was accessed with a 22 gague Meghan spinal needle and clear CSF fluid obtained. 12 cc of fluid was sent for analysis. The needle was removed without immediate complications. Total fluoroscopy time: 0.5 min FL/FL guided lumbar puncture LP IMPRESSION: Successful fluoroscopic guided lumbar puncture This procedure was performed by Kevin Aguero PA-C and supervised by Dr. Campbell.
--- OUTSIDE RECORDS SUMMARY | 2024-05-06 09:02 | XMS_ITS | Continuity of Care Document ---
Author Organization [facility] ter Address [address] [place] [address]- Care Team Providers Care Labor Relations Director Name Role Phone Pelon VILLA, Fadumo Tuttle Primary Care Physician Encounter [facility] Date(s): 02/29/24 - 02/29/[address] [address] Discharge Disposition: A-D/C Home Attending Physician: Abiola Zarate MD Admitting Physician: Abiola Zarate MD Referring Physician: Abiola Zarate MD Allergies, Adverse Reactions, Alerts Substance Reaction Severity Status sulfa drugs hives Active Valium Active Adderall 1 jorge indio syndrome Acti ve Latex irritation Active lamoTRIgine jorge indio syndrome Acti ve 1Patient reports rash with Adderall Immunizations Given and Recorded Vaccine Date Status Refusal Reason influenza virus vaccine, inactivated 08/18/23 Glynn rded influenza virus vaccine, inactivated 07/31/22 Glynn rded influenza virus vaccine, inactivated 08/21/21 Glynn rded influenza virus vaccine, inactivated 1 08/20/20 Gi marely influenza virus vaccine, inactivated 08/26/19 Glynn rded influenza virus vaccine, inactivated 08/28/18 Glynn rded influenza virus vaccine, inactivated 08/28/17 Glynn rded influenza virus vaccine, inactivated 06/24/16 Glynn rded SARS-CoV-2(COVID-19)mRNA-LNP vac([id number]) 08/18/23 Recorded [id number] 12y+ bivalent booster vax 07/31/22 Recorded SARS-CoV-2 (COVID-19) mRNA BNT-162b2 vac 08/21/21 Recorded SARS-CoV-2 (COVID-19) mRNA BNT-162b2 vac 01/25/21 Recorded SARS-CoV-2 (COVID-19) mRNA BNT-162b2 vac 2 01/02/21 Recorded Measles/Mumps/Rubella Virus Vaccine 03/22/21 Recor ded Measles/Mumps/Rubella Virus Vaccine 02/14/16 Recor ded hepatitis B adult vaccine 03/22/21 Recorded hepatitis B adult vaccine 03/13/16 Recorded hepatitis B adult vaccine 02/14/16 Recorded Influenza Virus Vaccine (oldterm) 06/29/19 Recorde d tetanus-diphtheria toxoids (Td) 06/29/19 Recorded tetanus/diphtheria/pertussis, acel(Tdap) 06/13/19 Recorded tetanus/diphtheria/pertussis, acel(Tdap) 11/09/13 Recorded 1Result Comment: [place] [id number] 2Result Comment: [facility] Medications Alcohol Pads See Instructions, # 200 each, Refills 5, Tot. Refills 5, Maintenance, Use when checking blood glucose up to 4 times a day E11.9, 05/21/23 16:16:00 EDT, Supply, 168, cm, 05/04/23 6:49:00 EDT, Height, 103, kg, 05/19/23 15:25:00 EDT, Dry Weight Start Date: 05/21/23 Status: Ordered baclofen 10 mg oral tablet 10 mg, 1, tablet, By Mouth, 3 times a day, # 90 tablet, Refills 5, Maintenance, 02/29/24 7:13:00 EDT, Partial fill upon patient request if the prescription is for a schedule II opioid drug. Start Date: 02/29/24 Status: Ordered Botox injection, every 3 months, 0 Refills, Maintenance, 09/13/21 7:17:00 EDT, Partial fill upon patient request if the prescription is for a schedule II opioid drug. Start Date: 09/13/21 Status: Ordered cariprazine 6 mg oral capsule 1 capsule = 6 mg, By Mouth, Daily, # 30 capsule, 4 Refills, Maintenance, 10/30/22 16:12:00 EST, [facility], Partial fill upon patient request if the prescription is for a schedule II opioid drug., 167.6, cm, 09/23/22 15:54:00 EST, Height... Start Date: 10/30/22 Status: Ordered Claritin 10 mg oral tablet 10 mg, 1, tablet, By Mouth, Daily, # 30 tablet, Refills 0, Maintenance, 09/13/21 7:19:00 EDT, Partial fill upon patient request if the prescription is for a schedule II opioid drug. Start Date: 09/13/21 Status: Ordered darifenacin 15 mg oral tablet, extended release 1 tablet = 15 mg, By Mouth, Daily, # 30 tablet, 3 Refills, Maintenance, 02/18/24 15:01:00 EDT, ER Tablet, [facility], Partial fill upon patient request if the prescription is for a schedule II opioid drug., 168, cm, 12/21/23 16:35:00 EST... Start Date: 02/18/24 Status: Ordered dicyclomine 10 mg oral capsule 1 capsule = 10 mg, By Mouth, 4 times a day, PRN pain/diarrhea, # 360 capsule, 0 Refills, Maintenance, 01/30/21 15:18:00 EDT, [facility], Partial fill upon patient request if the prescription is for a schedule II opioid drug., 166, c... Start Date: 01/30/21 Stop Date: 04/30/21 Status: Ordered Freestyle Lancets See Instructions, # 100 each, Refills 11, Tot. Refills 11, Maintenance, Use to check Blood Glucose 3 times a day. E11.65, 02/06/23 16:21:00 EDT, Supply, 166, cm, 12/11/22 12:57:00 EST, Height, 102.3,kg, 09/13/21 7:20:00 EDT, Dry Weight Start Date: 02/06/23 Status: Ordered FREESTYLE MONICA 14 DAY SENSO MISC FREESTYLE MONICA 14 DAY SENSO MISC, See Instructions, # 2 each, 6 Refills, CHANGE SENSOR EVERY 14 DAYS, 167.6, cm, 12/23/21 9:02:00 EST, Height, 102.3, kg, 09/13/21 7:20:00 EDT, Dry Weight Start Date: 04/14/22 Status: Ordered Freestyle Monica 3 Sensor Freestyle Monica 3 Sensor, See Instructions, # 2 each, Refills 11, Tot. Refills 11, Maintenance, Useto check BG up to 4 times a day with cell phone. E11.65, 04/30/23 8:15:00 EDT, Supply, 166, cm, 04/30/23 7:57:00 EDT, Height, 102.3, kg, 09/13/21 7:20... Start Date: 04/30/23 Status: Ordered Freestyle Lite Monitor See Instructions, # 1 each, Refills 0, Tot. Refills 0, Maintenance, Use to check BG 3 times a day. E11.65, 02/06/23 15:30:00 EDT, Supply, 166, cm, 12/11/22 12:57:00 EST, Height, 102.3, kg, 09/13/21 7:20:00 EDT, Dry Weight Start Date: 02/06/23 Status: Ordered Freestyle Lite Test Strips See Instructions, # 100 each, Refills 11, Tot. Refills 11, Maintenance, Use to check BG, three times a day. E11., 02/06/23 15:30:00 EDT, Supply, 166, cm, 12/11/22 12:57:00 EST, Height, 102.3, kg, 09/13/21 7:20:00 EDT, Dry Weight Start Date: 02/06/23 Status: Ordered gabapentin 300 mg oral capsule 900 mg, 3, capsule, By Mouth, Daily, # 90 capsule, Refills 3, Tot. Refills 3, Maintenance, 217:55:00 EST, Route to Pharmacy Electronically, [facility], 168, cm, 12/05/20 10:55:00 EST, Height, 110.5, kg, 04/23/20 14:28:00 EDT,... Start Date: 12/11/20 Status: Ordered hydrOXYzine hydrochloride 25 mg oral tablet 1 tablet = 25 mg, By Mouth, 4 times a day, PRN for anxiety, Shortage of 50mg at pharmacy., # 120 tablet, 1 Refills, Maintenance, 10/30/22 16:08:00 EST, Tablet, [facility], Partial fill upon patient request if the prescription is for a sc... Start Date: 10/30/22 Status: Ordered Jardiance 25 mg oral tablet 1 tablet, By Mouth, Daily in AM, # 90 tablet, 3 Refills, Maintenance, 04/30/23 8:14:00 EDT, [facility], 166, cm, 04/30/23 7:57:00 EDT, Height, 102.3, kg, 09/13/21 7:20:00 EDT, Dry Weight Start Date: 04/30/23 Status: Ordered Liletta 52 mg intrauterine device See Instructions, Bring to office for placement at scheduled appointment time., # 1 each, 0 Refills, Soft Stop, 01/01/21 12:41:00 EST, [facility], Partial fill upon patient request if the prescription is for a schedule II opioid drug., 166, cm, 12/12/20... Start Date: 01/01/21 Status: Ordered lithium 300 mg oral tablet, extended release 0 Refills, Maintenance, 12/21/23 16:35:00 EST, Partial fill upon patient request if the prescription is for a schedule II opioid drug. Start Date: 12/21/23 Status: Ordered magnesium aspartate = 1,230 mg, By Mouth, 2 times a day, 0 Refills, Maintenance, 02/23/24 9:48:00 EDT, Partial fill upon patient request if the prescription is for a schedule II opioid drug. Start Date: 02/23/24 Status: Ordered MetFORMIN (Eqv-Glucophage XR) 500 mg oral tablet, extended release 2 tablet, By Mouth, 2 times a day, # 360 tablet, 3 Refills, 04/30/23 8:15:00 EDT, [facility], 166, cm, 04/30/23 7:57:00 EDT, Height, 102.3, kg, 09/13/21 7:20:00 EDT, Dry Weight Start Date: 04/30/23 Status: Ordered metFORMIN 1000 mg oral tablet 1 tablet = 1,000 mg, By Mouth, 2 times a day, # 60 tablet, 0 Refills, Maintenance, 02/29/24 7:13:00EDT, Tablet, Partial fill upon patient request if the prescription is for a schedule II opioid drug. Start Date: 02/29/24 Status: Ordered Nurtec ODT 75 mg oral tablet, disintegrating 1 tablet = 75 mg, By Mouth, Every other day, 0 Refills, Maintenance, 05/01/23 9:24:00 EDT, Partial fill upon patient request if the prescription is for a schedule II opioid drug. Start Date: 05/01/23 Status: Ordered One Touch Control Solution See Instructions, # 1 each, Refills 0, Tot. Refills 0, Maintenance, Use to check Freestyle Monitor for accuracy of Blood Glucose readings. E11.65, 02/06/23 15:30:00 EDT, Supply, 166, cm, 12/11/22 12:57:00 EST, Height, 102.3, kg, 09/13/21 7:20:00 EDT,... Start Date: 02/06/23 Status: Ordered pantoprazole 40 mg oral delayed release tablet 1 tablet = 40 mg, By Mouth, Daily, # 30 tablet, 0 Refills, Maintenance, 02/29/24 7:13:00 EDT, EC Tablet Start Date: 02/29/24 Status: Ordered pantoprazole 40 mg oral delayed release tablet 1 tablet = 40 mg, By Mouth, 2 times a day, # 180 tablet, 2 Refills, Maintenance, 06/29/23 10:50:00 EDT, CR Tablet, 168, cm, 06/26/23 13:52:00 EDT, Height, 103, kg, 05/19/23 15:25:00 EDT, Dry Weight Start Date: 06/29/23 Status: Ordered rosuvastatin 5 mg oral tablet 1 tablet, By Mouth, Daily, # 90 tablet, 1 Refills, Maintenance, 12/15/23 8:58:00 EST, [facility], 168, cm, 08/18/23 9:57:00 EDT, Height, 103, kg, 05/19/23 15:25:00 EDT, Dry Weight Start Date: 12/15/23 Status: Ordered SEROquel 50 mg oral tablet 1 tablet = 50 mg, By Mouth, Daily at bedtime, 0 Refills, Maintenance, 05/01/23 9:25:00 EDT, Partialfill upon patient request if the prescription is for a schedule II opioid drug. Start Date: 05/01/23 Status: Ordered Trans Electrical nerve Stimulator for Myofascial Pain Syndrome M79.1 Trans Electrical nerve Stimulator for Myofascial Pain Syndrome M79.1, See Instructions, # 1 each, Refills 0, Tot. Refills 0, Maintenance, For Home Use, 03/26/21 8:38:00 EDT, Supply Start Date: 03/26/21 Status: Ordered Trudhesa = 0.725 mg, Once, 0 Refills, Maintenance, 02/23/24 9:47:00 EDT, Partial fill upon patient request if the prescription is for a schedule II opioid drug. Start Date: 02/23/24 Status: Ordered Trulicity Pen 0.75 mg/0.5 mL subcutaneous solution = 1.5 mg, Subcutaneous Infusion, Every 7 days, # 4 mL, 2 Refills, Maintenance, 12/31/23 12:27:00 EST, [facility], Partial fill upon patient request if the prescription is for a schedule II opioid drug., Danii cm, 12/21/23 16:35:00 EST, He... Start Date: 12/31/23 Status: Ordered Vyvanse 40 mg oral capsule 1 capsule = 40 mg, By Mouth, Daily in AM, # 30 capsule, 0 Refills, Maintenance, 02/12/24 17:15:00 EDT, Capsule, [id number], Partial fill upon patient request if the prescription is for a schedule II opioid drug., Danii cm, 12/21/23 16:... 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 Bipolar I disorder Confirmed Active Depression Confirmed Active Insomnia Confirmed Active Intertrigo Confirmed Active IBS (irritable bowel syndrome) Confirmed Active Migraine Confirmed Active Obese class I Confirmed Active Pulmonic stenosis Confirmed Active Thoracic outlet syndrome Confirmed Active Type 2 diabetes mellitus Confirmed Active 1repeat EGD in 2023 Vital Signs Most recent to oldest [Reference Range]: 1 2 3 Height 168 cm (02/29/24 7:40 AM) 168 cm (02/24/24 12:19 PM) Weight 94.2 kg (02/29/24 7:40 AM) 94.2 kg (02/24/24 12:19 PM) Oxygen Saturation [94-100 %] 100 % (02/29/24 8:45 AM) 98 % (02/29/24 8:30 AM) 100 % (02/29/24 8:15 AM) Pulse Rate [55-90 bpm] 77 bpm (02/29/24 7:40 AM) Body Mass Index [18.5-24.99 kg/m2] 33.38 kg/m2 *>HHI* (02/29/24 7:40 AM) 33.38 kg/m2 *>HHI* (02/24/24 12:19 PM) Blood Pressure [90-138/55-84 mm Hg] 113/80mm Hg (02/29/24 8:15 AM) 121/74mm Hg (02/29/24 8:00 AM) 109/71mm Hg (02/29/24 7:40 AM) Respiratory Rate [16-30 br/min] 19 br/min (02/29/24 8:30 AM) 18 br/min (02/29/24 8:15 AM) 15 br/min *L* (02/29/24 8:00 AM) Temperature [96.8-100.4 DegF] 97.6 DegF (02/29/24 8:30 AM) 97.4 DegF (02/29/24 8:00 AM) 97.5 DegF (02/29/24 7:40 AM) Liters per Minute 6 L/min (02/29/24 8:00 AM) Mode of Delivery (Oxygen) Room air (02/29/24 8:45 AM) Room air (02/29/24 8:30 AM) Room air (02/29/24 8:15 AM) Blood pressure sites Arm, right (02/29/24 7:40 AM) Temperature Route Temporal (02/29/24 8:00 AM) Temporal (02/29/24 7:40 AM) Dry Weight 94.2 kg (02/24/24 12:19 PM) Weight Obtained Via Standing scale (02/29/24 7:40 AM) Patient/family stated (02/24/24 12:19 PM) Dry Weight Obtained Via Patient/family s tated (02/24/24 12:19 PM) Social History Social History Type Response Smoking Status Former smoker, quit more than 30 days ago entered on: 12/12/20 Sex Note * Shae Yi RN: PERFORM Event Display: Discharge/Transfer Note Hospital Authored Date: [id number] Nursing Discharge Note Entered On: 02/29/2024 8:59 EDT Performed On: 02/29/2024 8:30 EDT by Shae Yi RN Nursing Discharge Note 2 Discharge Time : 02/29/2024 8:58 EDT Discharge Level of Care at Discharge : Home/Prison/Foster Care Patient Left Unit Via : Wheelchair Patient Accompanied Off Unit with : Responsible adult DC Instructions Provided & Signed by Pt : Yes Patient Understands D/C Instructions : Yes Verbalized Understanding of D/C Plan By : Patient Patient Instructions Discharge Signed : Yes Did Pt have Specialty Bed or Wound Vac : No Shae Yi RN - 02/29/2024 8:30 EDT * Shae Yi RN: PERFORM Event Display: Patient Education/Instruction Authored Date: [id number] Surgery Adult Discharge Instructions [address] [address] Name: LEXIE ALMARAZ : 1985?? Visit: 02/29/2024 05:53?? Current Date: 02/29/2024 08:08 ?? Account: [id number]?? Surgery Discharge Instructions We would like to thank you for allowing us to assist you with your healthcare needs. The following includes patient education materials and information regarding your injury/illness. Our entire staffstrives to provide an excellent experience for our patients and their families. PLEASE ENSURE YOU FOLLOW-UP PER THE INSTRUCTIONS BELOW! ?? YOUR OPINION IS IMPORTANT TO US! Please complete the survey you may receive by mail or email. Your feedback will be used to make improvements to the healthcare experiences of our patients and their families. Surveys are administered by [employer] ?? If further treatment with your primary care physician or another doctor is recommended, it is important for you to keep the appointment. Call your primary care physician or return to the Emergency Department immediately if your condition worsens, fails to improve, or new symptoms develop. If you need to find a doctor, you can call [facility] for a referral at [phone] or toll free at [phone] or log in to [email or web address].. ?? [facility], in keeping with [facility] guidance, no longer requires face masks for staff, patientsor visitors in most situations. Similiar to time spent indoors at other locations, there is the chance that you were exposed to repiratory viruses during your time with us (such as flu or COVID-19). If you develop symptoms concerning for a viral respiratory infection, please seek testing (and treatment if indicated) from your medical provider or home test kit. ?? You can view and manage your care through the patient portal or by using a health care audrey of your choosing. [facility] is a website that allows you to securely view your medical information including your hospital discharge summary, office visit summaries, medications and follow-up visits. You can also request appointments, renew medications, and request access to your medical information using a health care audrey of your choosing, or just ask a question. You are entitled to know the individuals who participated in your treatment. This information is available within your medical record and will be provided upon your request. You can enroll at [email or web address] or register d uring your next office visit. You have been discharged from [facility], Patient Care Unit: [facility]??. If you have any questions regarding these instructions after you leave, please call us and we will be happy to assist you. [facility] Your Care Team Attending Physician Elliot SYKES, Abiola Cameron?? Discharging Providers Linda Quezada MD Reason for Admission MIXED URINARY INCONTINENCE CYSTOSCOPY DS CS Primary Care Provider Pelon VILLA, Fadumo Tuttle? Advance Directive Health Care Proxy on File Yes - Health Care Proxy What to do next Instructions From Your Doctor ?? Orders? 02/29/24 7:58:00 EDT?? Instructions from your Care Team See printed information sheet. Scheduled Follow-Up Appointments 2023 3:00 PM EDT ?? With: Dylan Carmen NP Where: [facility] [address] [place] [address]- Status: Pending 2023 3:20 PM EDT ?? With: Olesya VILLA, Jennie Pascal Where: [facility] [address] [address]- Status: Pending You Need to Schedule the Following Appointments Follow Up with??Elliot SYKES, Abiola Cameron Where: [address] [facility] [address] [facility] [place] [address]- Business (1) Discharge Medications LEXIE ALMARAZ :1985 Visit Date:02/29/2024 Medications: Please continue your medications until treatment is completed or stopped by your provider. You may resume your daily prescription medications. Discuss any questions related to medications with your provider. What How Much When Instructions Next Dose Unchanged Baclofen (baclofen 10 mg oral tablet) 1 tab(s) Oral 3 times a day Unchanged cariprazine (cariprazine 6 mg oral capsule) 1 capsule Oral Daily Unchanged Darifenacin (darifenacin 15 mg oral tablet, extended release) 1 tab(s) Oral Daily Unchanged Dicyclomine (dicyclomine 10 mg oral capsule) 1 capsule Oral 4 times a day as needed for pain/diarrhea Duration: 90 Days Unchanged Dihydroergotamine (Trudhesa) 0.725 Milligram Once Unchanged dulaglutide (Trulicity Pen 0.75 mg/ 0.5 mL subcutaneous solution) 1.5 Milligram Subcutaneous Infusion Every 7 days Unchanged Durable Medical Equipment (Alcohol Pads) See instructions Use when checking blood glucose up to 4 times a day E11.9 ?? Unchanged Durable Medical Equipment (Freestyle Lancets) See instructions Use to check Blood Glucose 3 times a day. ??E11.65 ?? Unchanged Durable Medical Equipment (Freestyle Monica 3 Sensor) See instructions Use to check BG up to 4 times a day with cell phone. ??E11.65 ?? Unchanged Durable Medical Equipment (Freestyle Lite Monitor) See instructions Use to check BG 3 times a day. E11.65 ?? Unchanged Durable Medical Equipment (Freestyle Lite Test Strips) See instructions Use to check BG, three times a day. ??E11.65 ?? Unchanged Durable Medical Equipment (One Touch Control Solution) See instructions Use to check Freestyle Monitor for accuracy of Blood Glucose readings. ??E11.65 ?? Unchanged empagliflozin (Jardiance 25 mg oral tablet) 1 tab(s) Oral Daily in the morning Unchanged Gabapentin (gabapentin 300 mg oral capsule) 3 capsule Oral Daily Unchanged HydrOXYzine (hydrOXYzine hydrochloride 25 mg oral tablet) 1 tab(s) Oral 4 times a day as needed for for anxiety Shortage of 50mg at pharmacy. ?? Unchanged Levonorgestrel (Liletta 52 mg intrauterine device) See instructions Bring to office for placement at scheduled appointment time. ?? Unchanged lisdexamfetamine (Vyvanse 40 mg oral capsule) 1 capsule Oral Daily in the morning Unchanged [place] (lithium 300 mg oral tablet, extended release) Unchanged Loratadine (Claritin 10 mg oral tablet) 1 tab(s) Oral Daily Unchanged magnesium aspartate 1,230 Milligram Oral Twice a day Unchanged Metformin (MetFORMIN (Eqv-Glucophage XR) 500 mg oral tablet, extended release) 2 tab(s) Oral Twice a day Unchanged Metformin (metFORMIN 1000 mg oral tablet) 1 tab(s) Oral Twice a day Unchanged Miscellaneous Rx (FREESTYLE MONICA 14 DAY SENSO MISC) See instructions CHANGE SENSOR EVERY 14 DAYS ?? Unchanged Miscellaneous Rx (Trans Electrical nerve Stimulator for Myofascial Pain Syndrome M79.1) See instructions For Home Use ?? Unchanged onabotulinumtoxinA (Botox) injection every 3 months ?? Unchanged Pantoprazole (pantoprazole 40 mg oral delayed release tablet) 1 tab(s) Oral Twice a day Unchanged Pantoprazole (pantoprazole 40 mg oral delayed release tablet) 1 tab(s) Oral Daily Unchanged Quetiapine (SEROquel 50 mg oral tablet) 1 tab(s) Oral Daily at Bedtime Unchanged rimegepant (Nurtec ODT 75 mg oral tablet, disintegrating) 1 tab(s) Oral Every other day Unchanged Rosuvastatin (rosuvastatin 5 mg oral tablet) 1 tab(s) Oral Daily Allergies (NKA means No Known Allergies) Adderall??(jorge indio syndrome) Latex??(irritation) Valium lamoTRIgine??(jorge indio syndrome) sulfa drugs??(hives) Education Materials Below is the list of Educational Leaflet Providered with your Discharge Instructions. [employer] Patient Education - Surgery Medical Daystay Surgical Overnight Discharge Instructions?? [employer] Patient Education - ??NSAID Analgesic Schedule?? Valuables and Belongings I fully understand and agree that [facility] accepts no responsibility for all my personal property including clothing, toilet articles, radios, jewelry, dentures, hearing aids, rings, money, or any other property that is in my possession or is brought to me after admission. I understand certain valuables may be placed in a hospital safe for a short period of time. I understand that the hospital is not liable for loss or damage due to accident, fire, or other natural occurrence while said property is in the safe. I accept full responsibility for any personal property that I keep with me, and will not hold the hospital responsible in case of loss or disappearance. I acknowledge that i have been encouraged to send valuables and belongings home. ?? Review of Valuable and Belonging List: With patient Date for Pt to Sign Valuables/Belongings: 02/29/24 07:40:00 ?? Valuables & Belongings ?? Clothes Electronic devices Jewelry Monetary Items Personal devices Miscellaneous Medications (Valuables) Valuables at Bedside Jacket, Pants, Shirt, Shoes, Undergarments Cell phone ? Other: glucometer and sensor Valuables Sent Home ? Valuables Sent to Security ? Other Discharge Information ? Pulmonary Rehab Status?? Pulmonary Rehab Discharge Status?? Respiratory Rate:??15 br/min??Low ? Common Emergency Awareness Tips IS IT A STROKE? Act FAST and Check for these signs: FACE Does the face look uneven? ARM Does one arm drift down? SPEECH Does their speech sound strange? TIME Call at any sign of stroke ?? Heart Attack Signs Chest discomfort: Most heart attacks involve discomfort in the center of the chest and lasts more than a few minutes, or goes away and comes back. It can feel like uncomfortable pressure, squeezing, fullness or pain. Discomfort in upper body: Symptoms can include pain or discomfort in one or both arms, back, neck, jaw or stomach. Shortness of breath: With or without discomfort. Other signs: Breaking out in a cold sweat, nausea, or lightheaded. Remember, MINUTES DO MATTER. If you experience any of these heart attack warning signs, call to get immediate medical attention! ?? Smoking can increase your chances of developing chronic health problems and can cause harmful effects to other family members in your house. If you smoke, you are strongly encouraged to quit. Please call [facility] at [phone] or [phone] All Stars ([phone]) or log in to [email or web address] for referrals to smoking cessation programs. ?? The National Suicide Prevention Hotline is available 01/06 if you or someone you know needs to find a reason to keep living. By calling 1-699-881-Aerovance (4702) you'll be connected to a skilled, trained counselor at a crisis center in your area. SURGERY DISCHARGE INSTRUCTIONS SIGNATURE PAGE LEXIE ALMARAZ Location:[facility] Registration Date and Time:02/29/2024 05:53 EDT Primary Care Physician: Fadumo Bird NP, Attending Physician: Abiola Zarate MD, I LEXIE ALMARAZ, have received the above patient education materials/instructions and have verbalized understanding. If ambulance or transport services are being used I further acknowledge beinggiven a choice of service. ?? If you need to contact me, please call me at this number: . Patient/Medical Practice Manager Name: Patient/Medical Practice Manager Signature: Relationship to Patient: Witness Name/Signature: Date: * Shae Yi RN: PERFORM Event Display: Patient Education Leaflets Authored Date: [id number] Surgery Medical Daystay Surgical Overnight Discharge Instructions ?? 295 Medical Daystay/Surgical Overnight Discharge Instructions ? Since your coordination and judgment may be altered by medication and/or anesthesia, a responsible adult must drive you home from the hospital. ? If you have received medication for pain or sedation while under our care, you should not drive, operate machinery, drink alcohol, or sign any legal documents for 24 hours.?? You should have someone with you at home tonight. ? Remain at home the day of discharge.?? You may be up and about unless otherwise instructed by your physician. ? You may resume your daily prescription medication schedule.?? Any depressant medication should be avoided for 24 hours unless otherwise instructed by your surgeon or anesthesiologist. ? Call your physician for a follow-up appointment.? If you experience unusual or severe pain not relied by your pain medication, excessive bleedingor drainage, persistent nausea and vomiting, excessive swelling or redness, foul odor from incisionsite or fever over 100.6F, you need to call your physician. ? A follow-up phone call by a nurse will be made the day after your procedure.?? If you have stayed with us over night, you will not be receiving a follow-up phone call. ? Nausea and vomiting are a common side effect of prescription pain medication.?? We recommend that pills are not taken on an empty stomach.?? While taking any prescription pain medication you should not drive or drink alcohol. ? * [place], [place]: PERFORM Event Display: Patient Education Leaflets Authored Date: [id number] NSAID Analgesic Schedule ?? 604 NSAID???s Analgesic Schedule ?? Pain is the primary source of illness following your procedure and can include dehydration, difficulty and painful swallowing, and weight loss. These symptoms can lead to increased post-operative visits and hospital readmission. The best way to control pain is to take pain medications regularly. Your doctor has recommended both Ibuprofen and Acetaminophen (generic/store brands are okay, too). These can be picked up over the counter at your pharmacy of choice. Follow the instructions on the bottle to determine the proper dosage to give. The simplest way to take these medications it to rotate the two at 3-hour intervals. Here is a sample diagram. The time you take your medications may vary from this example. Do not give Ibuprofen more than every 6 hours or Acetaminophen every 4 hours. Do not give Acetaminophen if your doctor has given you a prescription that contains Acetaminophen. ? Patient Care team information Care Team Personnel Name: Tiffany Muhammad [place] Position: [facility] JULITO RN Member Role: Primary Care Nurse Name: Fadumo Bird NP Position: [facility] PCO Associate Professional Member Role: PCP Address: Address: [address] [place] [address] [place] [address]- Name: Maricel Boyce RN Position: [facility] Onco RN Member Role: Primary Care Nurse Care Team Related Persons Name: CARMITA ALMARAZ Address: [place] [address] Name: BROOKS ALMARAZ Address: home [address] [place] [address] Name: MAINE FELDMAN Address: home [address] [place] [address] Name: ROBER R[place]TER Address: [place] [address]
--- OUTSIDE RECORDS SUMMARY | 2024-05-06 09:02 | XMS_ITS | Continuity of Care Document ---
Author Organization [facility] Address [address] [place] [address]- Care Team Providers Care Automation Specialist Name Role Phone Pelon VILLA, Fadumo H Primary Care Physician [phone] Encounter [facility] Date(s): 09/23/22 - 10/23/22 [facility] [address] [place] [address]- Attending Physician: Bora Joseph Admitting Physician: Bora Joseph Referring Physician: Bora Joseph Allergies, Adverse Reactions, Alerts Substance Reaction Severity Status sulfa drugs Active Latex Active Adderall 1 Active Alti-LamoTRIgine 2 Active 1Patient reports rash with Adderall 2Per patient caused rash Immunizations Given and Recorded Vaccine Date Status Refusal Reason influenza virus vaccine, inactivated 07/31/22 Glynn rded influenza virus vaccine, inactivated 08/21/21 Glynn rded influenza virus vaccine, inactivated 1 08/20/20 Gi marely influenza virus vaccine, inactivated 08/26/19 Glynn rded influenza virus vaccine, inactivated 08/28/18 Glynn rded influenza virus vaccine, inactivated 08/28/17 Glynn rded influenza virus vaccine, inactivated 06/24/16 Glynn rded [id number] 12y+ bivalent booster vax 07/31/22 Recorded SARS-CoV-2 [...] Recorded tetanus/diphtheria/pertussis, acel(Tdap) 11/09/13 Recorded 1Result Comment: [place] [id number] 2Result Comment: [facility] Medications amoxicillin 500 mg oral tablet See Instructions, 4 tablet By Mouth 30-60 min prior to procedure., # 4 tablet, 3 Refills, Maintenance, 10/15/20 12:05:00 EST, [facility], Partial fill upon patient request if the prescription is for a schedule II opioid drug., 168, cm,... Start Date: 10/15/20 Status: Ordered baclofen 10 mg oral tablet See Instructions, 1 tablet By Mouth 2 to 3 times a day as needed for pain, # 90 tablet, Refills 3, Tot. Refills 3, Maintenance, 09/21/20 14:40:00 EST, Instructions Replace Required Details, Route to Pharmacy Electronically, [facility] Start Date: 09/21/20 Status: Ordered Botox injection, every 3 months, 0 Refills, Maintenance, 09/13/21 7:17:00 EDT, Partial fill upon patient request if the prescription is for a schedule II opioid drug. Start Date: 09/13/21 Status: Ordered cariprazine 6 mg oral capsule 1 capsule = 6 mg, By Mouth, Daily, # 30 capsule, 4 Refills, Maintenance, 07/31/22 16:49:00 EDT, [facility], Partial fill upon patient request if the prescription is for a schedule II opioid drug., 167.6, cm, 12/23/21 9:02:00 EST, Height,... Start Date: 07/31/22 Status: Ordered Claritin 10 mg oral tablet 10 mg, 1, tablet, By Mouth, Daily, # 30 tablet, Refills 0, Maintenance, 09/13/21 7:19:00 EDT, Partial fill upon patient request if the prescription is for a schedule II opioid drug. Start Date: 09/13/21 Status: Ordered darifenacin 7.5 mg oral tablet, extended release 1 tablet = 7.5 mg, By Mouth, Daily, # 30 tablet, 5 Refills, Maintenance, 10/13/22 13:55:00 EST, ER Tablet, [facility], Partial fill upon patient request if the prescription is for aschedule II opioid drug., 167.6, cm, 09/23/22 15:54:00... Start Date: 10/13/22 Status: Ordered dicyclomine 10 mg oral capsule 1 capsule = 10 mg, By Mouth, 4 times a day, PRN pain/diarrhea, # 360 capsule, 0 Refills, Maintenance, 01/30/21 15:18:00 EDT, [facility], Partial fill upon patient request if the prescription is for a schedule II opioid drug., 166, c... Start Date: 01/30/21 Stop Date: 04/30/21 Status: Ordered Emgality Prefilled Syringe 120 mg/mL subcutaneous solution = 120 mg, Subcutaneous Infusion, Every 28 days, # 3 each, 3 Refills, Maintenance, 03/09/20 15:25:00EDT, [facility], Please provide prefilled syringe instead of auto-injector pen, 168, cm, 03/05/20 15:02:00 EDT, Height, 106.6, kg, 11/05/... Start Date: 03/09/20 Status: Ordered Fiber Choice 1.5 g oral tablet, chewable 1 tablet = 1.5 Gm, Chew, 3 times a day, # 90 tablet, 6 Refills, Maintenance, 01/30/21 15:15:00 EDT,Chew Tablet, [facility], Partial fill upon patient request if the prescription isfor a schedule II opioid drug., 166, cm, 12/12/20 14:20... Start Date: 01/30/21 Stop Date: 08/28/21 Status: Ordered FREESTYLE MONICA 14 DAY SENSO MISC FREESTYLE MONICA 14 DAY SENSO MISC, See Instructions, # 2 each, 6 Refills, CHANGE SENSOR EVERY 14 DAYS, 167.6, cm, 12/23/21 9:02:00 EST, Height, 102.3, kg, 09/13/21 7:20:00 EDT, Dry Weight Start Date: 04/14/22 Status: Ordered FreeStyle Monica reader 2 FreeStyle Monica reader 2, See Instructions, # 1 each, Refills 0, Tot. Refills 0, Maintenance, Use to read Monica Sensor 5x daily. DxE11.9, 09/30/21 15:01:00 EST, Compound, 167.6, cm, 09/13/21 7:20:00 EDT, Height, 102.3, kg, 09/13/21 7:20:00 EDT, Dry We... Start Date: 09/30/21 Status: Ordered FreeStyle Monica sensors FreeStyle Monica sensors, See Instructions, # 2 each, Refills 6, Tot. Refills 6, Maintenance, Changesensor every 14 days. Dx E11.9, 09/30/21 15:01:00 EST, Compound, 167.6, cm, 09/13/21 7:20:00 EDT, Height, 102.3, kg, 09/13/21 7:20:00 EDT, Dry Weight Start Date: 09/30/21 Status: Ordered Freestyle Lite Lancets See Instructions, # 100 each, Refills 3, Tot. Refills 3, Maintenance, To measure blood sugar daily,07/11/21 9:10:00 EDT, Compound, 168, cm, 06/24/21 12:42:00 EDT, Height, 109, kg, 05/27/21 22:51:00 EDT, Dry Weight Start Date: 07/11/21 Status: Ordered Freestyle Lite Monitor See Instructions, # 1 each, Refills 0, Tot. Refills 0, Maintenance, To measure blood sugar daily, 07/16/21 7:45:00 EDT, Compound, 168, cm, 06/24/21 12:42:00 EDT, Height, 109, kg, 05/27/21 22:51:00 EDT, Dry Weight Start Date: 07/16/21 Status: Ordered Freestyle Lite Test Strips See Instructions, # 100 each, Refills 3, Tot. Refills 3, Maintenance, To measure blood sugar daily,07/11/21 9:10:00 EDT, Compound, 168, cm, 06/24/21 12:42:00 EDT, Height, 109, kg, 05/27/21 22:51:00 EDT, Dry Weight Start Date: 07/11/21 Status: Ordered FreeStyle Precision Wilfrido Test Strips FreeStyle Precision Wilfrido Test Strips, See Instructions, # 100 each, Refills 6, Tot. Refills 6, Maintenance, use to test BG 3 times per day. E 11.9, 09/30/21 15:01:00 EST, Compound, 167.6, cm, :20:00 EDT, Height, 102.3, kg, 09/13/21 7:20:00 ED... Start Date: 09/30/21 Status: Ordered gabapentin 300 mg oral capsule 900 mg, 3, capsule, By Mouth, Daily, # 90 capsule, Refills 3, Tot. Refills 3, Maintenance, :55:00 EST, Route to Pharmacy Electronically, [facility], 168, cm, 12/05/20 10:55:00 EST, Height, 110.5, kg, 04/23/20 14:28:00 EDT,... Start Date: 12/11/20 Status: Ordered hydrOXYzine hydrochloride 25 mg oral tablet 1 tablet = 25 mg, By Mouth, 4 times a day, PRN for anxiety, Shortage of 50mg at pharmacy., # 120 tablet, 1 Refills, Maintenance, 09/02/22 10:21:00 EDT, Tablet, [facility], Partial fill upon patient request if the prescription is for a sc... Start Date: 09/02/22 Status: Ordered Jardiance 25 mg oral tablet 1 tablet = 25 mg, By Mouth, Daily in AM, 1 tablet = 25 mg, By Mouth, Daily in AM. Needs to make an appt, # 90 tablet, 1 Refills, Maintenance, 09/18/22 15:09:00 EST, Tablet, [facility], 167.6, cm, 08/12/22 9:31:00 EDT, Height, 102.3, kg,... Start Date: 09/18/22 Status: Ordered Liletta 52 mg intrauterine device See Instructions, Bring to office for placement at scheduled appointment time., # 1 each, 0 Refills, Soft Stop, 01/01/21 12:41:00 EST, [facility], Partial fill upon patient request if the prescription is for a schedule II opioid drug., 166, cm, 12/12/20... Start Date: 01/01/21 Status: Ordered MetFORMIN (Eqv-Glucophage XR) 500 mg oral tablet, extended release 2 tablet, By Mouth, 2 times a day, # 360 tablet, 1 Refills, 07/28/22 11:05:00 EDT, [facility], 167.6, cm, 12/23/21 9:02:00 EST, Height, 102.3, kg, 09/13/21 7:20:00 EDT, Dry Weight Start Date: 07/28/22 Status: Ordered pantoprazole 40 mg oral delayed release tablet 1 tablet = 40 mg, By Mouth, 2 times a day, # 180 tablet, 2 Refills, Maintenance, 08/21/22 7:19:00 EDT, CR Tablet, 167.6, cm, 08/12/22 9:31:00 EDT, Height, 102.3, kg, 09/13/21 7:20:00 EDT, Dry Weight Start Date: 08/21/22 Status: Ordered promethazine 12.5 mg oral tablet 1 tablet = 12.5 mg, By Mouth, Every 6 hours, PRN for motion sickness, May take up to every 6 hours as needed for nausea and vomiting, # 84 tablet, 0 Refills, Maintenance, 10/13/22 9:59:00 EST, Tablet, [facility], Partial fill upon patien... Start Date: 10/13/22 Stop Date: 11/03/22 Status: Ordered rosuvastatin 5 mg oral tablet 1 tablet = 5 mg, By Mouth, Daily, # 90 tablet, 3 Refills, Maintenance, 12/23/21 9:30:00 EST, Tablet, [facility], Partial fill upon patient request if the prescription is for a schedule II opioid drug., 167.6, cm, 12/23/21 9:02:00 EST, He... Start Date: 12/23/21 Status: Ordered Trans Electrical nerve Stimulator for Myofascial Pain Syndrome M79.1 Trans Electrical nerve Stimulator for Myofascial Pain Syndrome M79.1, See Instructions, # 1 each, Refills 0, Tot. Refills 0, Maintenance, For Home Use, 03/26/21 8:38:00 EDT, Supply Start Date: 03/26/21 Status: Ordered Trulicity Pen 1.5 mg/0.5 mL subcutaneous solution = 1.5 mg, Subcutaneous Infusion, Every week, # 4 each, 2 Refills, Maintenance, 08/07/22 16:25:00 EDT, [facility], 167.6, cm, 12/23/21 9:02:00 EST, Height, 102.3, kg, 09/13/21 7:20:00 EDT, Dry Weight Start Date: 08/07/22 Status: Ordered Trulicity Pen 3 mg/0.5 mL subcutaneous solution 0.5 mL = 3 mg, Subcutaneous Injection, Every week, 0.5 ml = 3 mg, Subcutaneous Injection, Every week. E11.65 rotate injection sites, # 2 mL, 11 Refills, Maintenance, 10/21/22 16:30:00 EST, Solution, [facility], Partial fill upon patien... Start Date: 10/21/22 Status: Ordered Ubrelvy 100 mg oral tablet 1 tablet = 100 mg, By Mouth, Once, PRN as needed for migraine headache, may repeat dose in 2 hours if needed, # 16 tablet, 0 Refills, Maintenance, 02/25/21 23:55:00 EDT, Tablet, Partial fill upon patient request if the prescription is for a schedule I... 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 Bipolar I disorder Confirmed Active Depression Confirmed Active Mixed incontinence Confirmed Active Intertrigo Confirmed Active IBS (irritable bowel syndrome) Confirmed Active Migraine Confirmed Active Obese class II Confirmed Active Onychomycosis of multiple toenails with type 2 diabetes mellitus Confirmed Active Pulmonic stenosis Confirmed Active Thoracic outlet syndrome Confirmed Active Type 2 diabetes mellitus Confirmed Active 1repeat EGD in 2023 Social History Social History Type Response Smoking Status Former smoker, quit more than 30 days ago entered on: 12/12/20 Sex Female Patient Care team information Care Team Personnel Name: Tiffany Inman Position: [facility] RN Member Role: Primary Care Nurse Name: Fadumo Bird NP Position: [facility] PCO Associate Professional Member Role: PCP Address: Address: [address] [place] [address] [place] [address]- [place] Care Team Related Persons Name: CARMITA ALMARAZ Address: [place] [address] [facility] [address] Name: BROOKS ALMARAZ Address: home [address] [place] Name: MAINE FELDMAN Address: home [address] [place] [address]
--- OUTSIDE RECORDS SUMMARY | 2024-05-06 09:02 | XMS_ITS | Continuity of Care Document ---
Author Organization [facility] Address [address], [address] [place] [address]- Care Team Providers Care Earth Science Technician Name Role Phone Pelon VILLA, Fadumo Tuttle Primary Care Physician Encounter [facility] Date(s): 10/23/23 - 11/22/23 [facility] [address], [address] [place] [address]- Allergies, Adverse Reactions, Alerts Substance Reaction Severity Status sulfa drugs hives Active Adderall 1 jorge indio syndrome Acti [...] influenza virus vaccine, inactivated 06/24/16 Glynn rded [id number] 12y+ bivalent booster vax 07/31/22 Recorded SARS-CoV-2 [...] Recorded tetanus/diphtheria/pertussis, acel(Tdap) 11/09/13 Recorded 1[place] Comment: [place] [id number] 2Result Comment: [facility] Medications Alcohol Pads See Instructions, # 200 each, Refills 5, Tot. Refills 5, Maintenance, Use when checking blood glucose up to 4 times a day E11.9, 05/21/23 16:16:00 EDT, Supply, 168, cm, 05/04/23 6:49:00 EDT, Height, 103, kg, 05/19/23 15:25:00 EDT, Dry Weight Start Date: 05/21/23 Status: Ordered amoxicillin 500 mg oral tablet See Instructions, 4 tablet By Mouth 30-60 min prior to procedure., # 4 tablet, 3 Refills, Maintenance, 10/15/20 12:05:00 EST, [facility], Partial fill upon patient request [...] opioid drug. Start Date: 09/13/21 Status: Ordered clindamycin 1% topical solution 1 application, Topically, 2 times a day, Apply to areas prone to lesions twice daily, # 60 mL, 4 Refills, Maintenance, 08/18/23 13:02:00 EDT, Solution, [facility], Partial fill uponpatient request if the prescription is for a schedule I... Start Date: 08/18/23 Status: Ordered darifenacin 15 mg oral tablet, extended release 1 tablet = 15 mg, By Mouth, Daily, # 30 tablet, 3 Refills, Maintenance, 10/21/23 10:11:00 EST, ER Tablet, [facility], Partial fill upon patient request if the prescription is for a schedule II opioid drug., 168, cm, 08/18/23 9:57:00 EDT,... Start Date: 10/21/23 Status: Ordered dicyclomine 10 mg oral capsule [...] to check BG, three times a day. E11.65, 02/06/23 15:30:00 EDT, [...] Dry Weight Start Date: 04/30/23 Status: Ordered MiraLax oral powder for reconstitution = 17 Gm, By Mouth, Daily, dissolve in water before taking, # 255 Gm, 0 Refills, Maintenance, 05/01/23 9:22:00 EDT, [facility] Pow[facility], Partial fill upon patient request if the prescription is for a schedule II opioid drug. Start Date: 05/01/23 Status: Ordered Nurtec ODT 75 mg oral [...] tablet, By Mouth, Daily, # 90 tablet, 0 Refills, Maintenance, 09/27/23 15:49:00 EST, [facility], 168, cm, 08/18/23 9:57:00 EDT, Height, 103, kg, 05/19/23 15:25:00 EDT, Dry Weight Start Date: 09/27/23 Status: Ordered SEROquel 50 mg oral tablet [...] Subcutaneous Infusion, Every week, # 4 each, 11 Refills, Maintenance, 04/30/23 8:15:00 EDT, [facility], 166, cm, 04/30/23 7:57:00 EDT, Height, 102.3, kg, 09/13/21 7:20:00 EDT, Dry Weight Start Date: 04/30/23 Status: Ordered Vyvanse 30 mg oral capsule 1 capsule = 30 mg, By Mouth, Daily in AM, Fill when it's due, # 30 capsule, 0 Refills, Maintenance,12/29/22 15:59:00 EST, Capsule, [facility], Partial fill upon patient request if the prescription is for a schedule II opioid drug., 1 ca... 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 Bipolar I disorder Confirmed Active Depression Confirmed Active Mixed incontinence Confirmed Active Intertrigo Confirmed Active IBS (irritable bowel syndrome) Confirmed Active Migraine Confirmed Active Onychomycosis of multiple toenails with type 2 diabetes mellitus Confirmed Active Pulmonic stenosis Confirmed Active Severe obesity (BMI 35.0-39.9) with comorbidity Confirmed Active Thoracic outlet syndrome Confirmed Active Type 2 diabetes mellitus Confirmed Active 1repeat EGD in 2023 Social History Social History Type Response Smoking Status Former smoker, quit more than 30 days ago entered on: 12/12/20 Sex Patient Care team information Care Team Personnel Name: Tiffany Muhammad [place] Position: [facility] RN Member Role: Primary Care Nurse Name: Fadumo Bird NP Position: [facility] PCO Associate Professional Member Role: PCP Address: Address: [address] [place] [address] [place] [address]- Name: Maricel Boyce RN Position: [facility] Onco RN Member Role: Primary Care Nurse Care Team Related Persons Name: CARMITA ALMARAZ Address: home [address] [place], [place] Name: BROOKS ALMARAZ Address: [address] [place] [address] Name: MAINE FELDMAN Address: home [address] [place] [address] Name: ROBER RICHTER Address: home [place] [id number]
--- OUTSIDE RECORDS SUMMARY | 2024-05-06 09:02 | XMS_ITS | Continuity of Care Document ---
Author Organization [facility] Endocrinolo gy and Diabetes [place] Address [address] [place] [address]- Care Team Providers Care Cage Shift Manager Name Role Phone Pelon VILLA, Fadumo Tuttle Primary Care Physician Encounter [facility] Date(s): 02/06/23 - 03/08/23 [facility] Endocrinology and Diabetes [address] [address]- Allergies, Adverse Reactions, Alerts Substance Reaction Severity Status sulfa drugs Active Adderall 1 Active Latex Active Alti-LamoTRIgine 2 Active 1Patient reports rash [...] Glynn rded influenza virus vaccine, inactivated 06/24/16 Lgynn rded [id number] 12y+ bivalent booster vax 07/31/22 Recorded SARS-CoV-2 (COVID-19) mRNA BNT-162b2 vac 08/21/21 Recorded SARS-CoV-2 (COVID-19) mRNA BNT-162b2 vac 01/25/21 Recorded SARS-CoV-2 (COVID-19) mRNA BNT-162b2 vac 2 01/02/21 Recorded Measles/Mumps/Rubella Virus Vaccine 03/22/21 Recor ded Measles/Mumps/Rubella Virus Vaccine 02/14/16 Recor ded hepatitis B adult vaccine 03/22/21 Recorded hepatitis B adult vaccine 03/13/16 Recorded hepatitis B adult vaccine 02/14/16 Recorded Influenza Virus Vaccine (oldterm) 8/21/19 Recorde d tetanus-diphtheria toxoids (Td) 06/29/19 Recorded tetanus/diphtheria/pertussis, acel(Tdap) 06/13/19 Recorded tetanus/diphtheria/pertussis, acel(Tdap) 11/09/13 Recorded 1[place] Comment: [place] [id number] 2Result Comment: [facility] Medications amoxicillin 500 mg oral tablet See Instructions, 4 tablet By Mouth 30-60 min prior to procedure., # 4 tablet, 3 Refills, Maintenance, 10/15/20 12:05:00 EST, [facility], Partial fill [...] Daily, # 30 tablet, 5 Refills, Maintenance, 12/01/22 12:30:00 EST, ER Tablet, [facility], Partial fill upon patient request if the prescription is for a schedule II opioid drug., 167.6, cm, 09/23/22 15:54:00 E... Start Date: 12/01/22 Status: Ordered dicyclomine 10 mg oral capsule [...] Date: 01/30/21 Stop Date: 08/28/21 Status: Ordered Freestyle Lancets See Instructions, # [...] times a day with cell phone. E11.65, 01/06/23 15:22:00 EST, Supply, 166, cm, 12/11/22 12:57:00 EST, Height, 102.3, kg, 09/13/21 7:... Start Date: 01/06/23 Status: Ordered Freestyle Lite Monitor See Instructions, # 1 each, Refills 0, Tot. Refills 0, Maintenance, Use to check BG 3 times a day. E11, 02/06/23 15:30:00 EDT, Supply, 166, cm, 12/11/22 12:57:00 EST, Height, 102.3, kg, 09/13/21 7:20:00 EDT, Dry Weight Start Date: 02/06/23 Status: Ordered Freestyle Lite Test Strips See Instructions, # 100 each, Refills 11, Tot. Refills 11, Maintenance, Use to check BG, three times a day. E11, 02/06/23 15:30:00 EDT, Supply, 166, cm, 12/11/22 [...] a day, # 360 tablet, 1 Refills, 02/09/23 14:11:00 EDT, [facility], 166, cm, 12/11/22 12:57:00 EST, Height, 102.3, kg, 09/13/21 7:20:00 EDT, Dry Weight Start Date: 02/09/23 Status: Ordered MiraLax oral powder for reconstitution = 17 Gm, By Mouth, Daily, for 30 days, dissolve in water before taking, # 510 Gm, 1 Refills, Acute 04/14/23 15:59:00 EDT, 02/13/23 15:59:00 EDT, REC Powder, [facility], Partial fillupon patient request if the prescription is for a sched... Start Date: 02/13/23 Stop Date: 04/14/23 Status: Ordered One Touch Control Solution See [...] Dry Weight Start Date: 08/21/22 Status: Ordered rosuvastatin 5 mg oral tablet 1 tablet = 5 mg, By Mouth, Daily, # 90 tablet, 1 Refills, Maintenance, 12/16/22 7:23:00 EST, Tablet, [facility], Partial fill upon patient request if the prescription is for a schedule II opioid drug., 166, cm, 12/11/22 12:57:00 EST, Hei... Start Date: 12/16/22 Status: Ordered Trans Electrical nerve Stimulator for Myofascial Pain Syndrome M79.1 Trans Electrical nerve Stimulator for Myofascial Pain Syndrome M79.1, See Instructions, # 1 each, Refills 0, Tot. Refills 0, Maintenance, For Home Use, 03/26/21 8:38:00 EDT, Supply Start Date: 03/26/21 Status: Ordered Trulicity Pen 1.5 mg/0.5 mL subcutaneous solution = 1.5 mg, Subcutaneous Infusion, Every week, # 4 each, 11 Refills, Maintenance, 11/14/22 12:02:00 EST, [facility], 167.6, cm, 09/23/22 15:54:00 EST, Height, 102.3, kg, 09/13/21 7:20:00 EDT, Dry Weight Start Date: 11/14/22 Status: Ordered Vyvanse 30 mg oral capsule [...] Care Team Personnel Name: Tiffany Inman Position: [facility] RN Member Role: Primary Care Nurse Name: Fadumo Bird NP Position: [facility] Associate Professional Member Role: PCP Address: Address: [address] [place] [address] [place] [address]- Name: Maricel Boyce RN Position: [facility] Onco RN Member Role: Primary Care Nurse Care Team Related Persons Name: CARMITA ALMARAZ Address: home SAME [place], [place] Name: BROOKS ALMARAZ Address: home [place], [place] Name: MAINE FELDMAN Address: home [address] [place] [id number] Name: ROBER RICHTER Address: home [place]
--- OUTSIDE RECORDS SUMMARY | 2024-05-06 09:02 | XMS_ITS | Continuity of Care Document ---
Author Organization [facility] Endocrinolo gy and Diabetes [place] Address [address] [place] [address]- Care Team Providers Care Retail Sales Consultant Name Role Phone Pelon VILLA, Fadumo Tuttle Primary Care Physician Encounter [facility] Date(s): 01/27/23 - 02/26/23 [facility] Endocrinology and Diabetes [address] [address]- Allergies, Adverse Reactions, Alerts Substance Reaction Severity [...] influenza virus vaccine, inactivated 06/24/16 Glynn rded [id number] 12y+ bivalent booster vax 07/31/22 Recorded SARS-CoV-2 [...] Recorded tetanus/diphtheria/pertussis, acel(Tdap) 11/09/13 Recorded 1Result Comment: [place] [id number] 2Result Comment: [facility] Medications amoxicillin 500 mg oral tablet See [...] Care Team Personnel Name: Tiffany Inman Position: [facility] RN Member Role: Primary Care Nurse Name: Fadumo Bird NP Position: [facility] Associate Professional Member Role: PCP Address: Address: [address] [place] [address] [place] [address]- Name: Maricel Boyce RN Position: [facility] Onco RN Member Role: Primary Care Nurse Care Team Related Persons Name: CARMITA ALMARAZ Address: home SAME [place], [place] Name: BROOKS ALMARAZ Address: home [place], [place] Name: MAINE FELDMAN Address: home [address] [place] [id number] Name: ROBER RICHTER Address: home [place]
--- OUTSIDE RECORDS SUMMARY | 2024-05-06 09:02 | XMS_ITS | Continuity of Care Document ---
Author Organization [facility] Endocrinolo gy and Diabetes [place] Address [address] [place] [address]- Care Team Providers Care Customer Solutions Coordinator Name Role Phone Pelon VILLA, Fadumo Tuttle Primary Care Physician Encounter [facility] Date(s): 03/03/23 - 04/02/23 [facility] Endocrinology and Diabetes [place] [address] [place] [address]- Allergies, Adverse Reactions, Alerts Substance Reaction Severity [...] influenza virus vaccine, inactivated 06/24/16 Glynn rded [id number] 12y+ bivalent booster vax 07/31/22 Recorded SARS-CoV-2 [...] Recorded tetanus/diphtheria/pertussis, acel(Tdap) 11/09/13 Recorded 1[place] Comment: [place] [id number] 2Result Comment: [facility] Medications amoxicillin 500 mg oral tablet [...] Mouth, Daily in AM, # 90 tablet, 2 Refills, Maintenance, 03/16/23 8:06:00 EDT, [facility], 166, cm, 12/11/22 12:57:00 EST, Height, 102.3, kg, 09/13/21 7:20:00 EDT, Dry Weight Start Date: 03/16/23 Status: Ordered Liletta 52 mg intrauterine device [...] Care Team Personnel Name: Tiffany Inman Position: [facility] RN Member Role: Primary Care Nurse Name: Fadumo Bird NP Position: [facility] Associate Professional Member Role: PCP Address: Address: [address] [place] [address] [place] [address]- Name: Maricel Boyce RN Position: [facility] RN Member Role: Primary Care Nurse Care Team Related Persons Name: CARMITA ALMARAZ Address: home SAME [place], [place] Name: BROOKS ALMARAZ Address: home [place], [place] Name: MAINE FELDMAN Address: home [address] [place] [id number] Name: ROBER RICHTER Address: home [place], [place]
--- OUTSIDE RECORDS SUMMARY | 2024-05-06 09:03 | XMS_ITS | Continuity of Care Document ---
Author Organization [facility] Address [address], [address] [place] [address]- Care Team Providers Care Gis Professor Name Role Phone Pelon VILLA, Fadumo Tuttle Primary Care Physician [phone] Encounter [facility] Date(s): 11/05/22 - 12/05/22 [facility] [address] [place] [address]- Allergies, Adverse Reactions, Alerts Substance Reaction Severity Status sulfa drugs Active Adderall 1 Active Latex Active Alti-LamoTRIgine 2 Active 1Patient reports rash with Adderall 2Per patient caused rash Immunizations Given and Recorded Vaccine Date Status Refusal Reason influenza virus vaccine, inactivated 07/31/22 Glynn rded influenza virus vaccine, inactivated 08/21/21 Gylnn rded influenza virus vaccine, inactivated 1 08/20/20 Gi marely influenza virus vaccine, inactivated 08/26/19 Glynn rded influenza virus vaccine, inactivated 08/28/18 Glynn rded influenza virus vaccine, inactivated 08/28/17 Glynn rded influenza virus vaccine, inactivated 06/24/16 Glynn rded [id number] 12y+ bivalent booster vax 07/31/22 Recorded SARS-CoV-2 (COVID-19) mRNA BNT-162b2 vac 08/21/21 Recorded SARS-CoV-2 (COVID-19) mRNA BNT-162b2 vac 01/25/21 Recorded SARS-CoV-2 (COVID-19) mRNA BNT-162b2 vac 2 01/02/21 Recorded Measles/Mumps/Rubella Virus Vaccine 03/22/21 Recor ded Measles/Mumps/Rubella Virus Vaccine 02/14/16 Recor ded hepatitis B adult vaccine 03/22/21 Recorded hepatitis B adult vaccine 5/5/16 Recorded hepatitis B adult vaccine 02/14/16 Recorded Influenza Virus Vaccine (oldterm) 06/29/19 Recorde d tetanus-diphtheria toxoids (Td) 06/29/19 Recorded tetanus/diphtheria/pertussis, acel(Tdap) 06/13/19 Recorded tetanus/diphtheria/pertussis, acel(Tdap) 11/09/13 Recorded 1Result Comment: [place] [id number] 2Result Comment: [facility] Medications amoxicillin 500 mg oral tablet See [...] Start Date: 04/14/22 Status: Ordered Freestyle Monica 14 day sensor Freestyle Monica 14 day sensor, See Instructions, # 2 each, Refills 11, Tot. Refills 11, Maintenance, Use to check BG up to 4 times a day. E11.65, 11/14/22 16:15:00 EST, Supply, 167.6, cm, 09/23/22 15:54:00 EST, Height, 102.3, kg, 09/13/21 7:20:00 EDT... Start Date: 11/14/22 Status: Ordered FreeStyle Monica reader 2 FreeStyle [...] 11.9, 09/30/21 15:01:00 EST, Compound, 167.6, cm, 217:20:00 EDT, Height, 102.3, kg, 09/13/21 7:20:00 ED... [...] Dry Weight Start Date: 11/14/22 Status: Ordered Ubrelvy 100 mg oral tablet 1 tablet = 100 mg, By Mouth, Once, PRN as needed for migraine headache, may repeat dose in 2 hours if needed, # 16 tablet, 0 Refills, Maintenance, 02/25/21 23:55:00 EDT, Tablet, Partial fill upon patient request if the prescription is for a schedule I... Start Date: 02/25/21 Status: Ordered Vyvanse 20 mg oral capsule 1 capsule = 20 mg, By Mouth, Daily in AM, # 30 capsule, 0 Refills, Maintenance, 10/30/22 16:09:00 EST, Capsule, [facility], Partial fill upon patient request if the prescription is for a schedule II opioid drug., 167.6, cm, 09/23/22 15:5... Start Date: 10/30/22 Status: Ordered Problem List Condition Confirmation Course [...] Care Team Personnel Name: Tiffany Inman Position: [facility] RN Member Role: Primary Care Nurse Name: Fadumo Bird NP Position: [facility] Associate Professional Member Role: PCP Address: Address: [address] [place] [address] [place] [address]- Care Team Related Persons Name: CARMITA ALMARAZ Address: home SAME [place], [place] Name: BROOKS ALMARAZ Address: home [address] [place] [address] [address] [place], [place] Name: MAINE FELDMAN Address: home [address] [place] [address] Name: ROBER RICHTER Address: [place]
--- OUTSIDE RECORDS SUMMARY | 2024-05-06 09:03 | XMS_ITS | Continuity of Care Document ---
Author Organization [facility] Endocrinolo gy and Diabetes [place] Address [address] [place] [address]- Care Team Providers Care Licensed Architect Name Role Phone Pelon VILLA, Fadumo Tuttle Primary Care Physician Encounter [facility] Date(s): 01/06/23 - 02/05/23 [facility] Endocrinology and Diabetes [address] [address]- Allergies, Adverse Reactions, Alerts Substance Reaction Severity Status Latex Active sulfa drugs Active Adderall 1 Active Alti-LamoTRIgine 2 Active [...] influenza virus vaccine, inactivated 06/24/16 Glynn rded [id number] 12y+ bivalent booster vax 07/31/22 Recorded SARS-CoV-2 [...] Recorded tetanus/diphtheria/pertussis, acel(Tdap) 11/09/13 Recorded 1Result Comment: [place] [id number] 2Result Comment: [facility] Medications amoxicillin 500 mg oral tablet [...] 09/13/21 7:... Start Date: 01/06/23 Status: Ordered gabapentin 300 mg oral capsule [...] Care Team Personnel Name: Tiffany Inman Position: [facility] RN Member Role: Primary Care Nurse Name: Fadumo Bird NP Position: [facility] Associate Professional Member Role: PCP Address: Address: [address] [place] [address] [place] [address]- Care Team Related Persons Name: CARMITA ALMARAZ Address: home [place], [place] Name: BROOKS ALMARAZ Address: home [place], [place] Name: MAINE FELDMAN Address: home [address] [place] [address] Name: ROBER RICHTER Address: home [place], [place]
--- OUTSIDE RECORDS SUMMARY | 2024-05-06 09:03 | XMS_ITS | Continuity of Care Document ---
Author Organization [facility] Endocrinolo gy and Diabetes Address [address] [place] [address]- Care Team Providers Care Bulb Filler Name Role Phone Pelon VILLA, Fadumo Tuttle Primary Care Physician [phone] [place] [facility] Date(s): 09/23/22 - 10/23/22 [facility] Endocrinology and Diabetes [address] [place] [address] Allergies, Adverse Reactions, Alerts Substance Reaction Severity [...] influenza virus vaccine, inactivated 06/24/16 Glynn rded [id number] 12y+ bivalent booster vax 07/31/22 Recorded SARS-CoV-2 [...] tetanus/diphtheria/pertussis, acel(Tdap) 11/09/13 Recorded 1Result Comment: [place] [id number] 2Result Comment: [facility] Medications amoxicillin 500 mg oral tablet [...] Care Team Personnel Name: Tiffany Inman Position: [facility] RN Member Role: Primary Care Nurse Name: Fadumo Bird NP Position: [facility] Associate Professional Member Role: PCP Address: Address: [address] [place] [address] Primary Care [place], [place] [address] Care Team Related Persons Name: CARMITA ALMARAZ Address: home [place], [place] Name: BROOKS ALMARAZ Address: home [address] [place] [address] [address] [place], [place] Name: MAINE FELDMAN Address: home [address] [place] [address]
--- OUTSIDE RECORDS SUMMARY | 2024-05-06 09:03 | XMS_ITS | Continuity of Care Document ---
Author Organization [facility] Address [address] [place] [address]- Care Team Providers Care Thread Separator Name Role Phone Pelon VILLA, Fadumo Tuttle Primary Care Physician Encounter [facility] Date(s): 02/04/23 - 03/06/23 [facility] [address] [place] [address]- [place] Allergies, Adverse Reactions, Alerts Substance Reaction Severity [...] influenza virus vaccine, inactivated 06/24/16 Glynn rded [id number] 12y+ bivalent booster vax 07/31/22 Recorded SARS-CoV-2 [...] Recorded tetanus/diphtheria/pertussis, acel(Tdap) 11/09/13 Recorded 1[place] Comment: [place] [id number] 2Result Comment: [facility] Medications amoxicillin 500 mg oral tablet [...] Care Team Personnel Name: Tiffany Inman Position: [facility] RN Member Role: Primary Care Nurse Name: Fadumo Bird NP Position: [facility] Associate Professional Member Role: PCP Address: Address: [address] [place] [address] Primary Care [place], [place] [address] Name: Maricel Boyce RN Position: [facility] Onco RN Member Role: Primary Care Nurse Care Team Related Persons Name: CARMITA ALMARAZ Address: home SAME [place], [place] Name: BROOKS ALMARAZ Address: home [place], [place] Name: MAINE FELDMAN Address: home [address] [place] [address] Name: ROBER RICHTER Address: home [place], [place]
--- OUTSIDE RECORDS SUMMARY | 2024-05-06 09:03 | XMS_ITS | Continuity of Care Document ---
Author Organization [facility] Address [address] [place] [address]- Care Team Providers Care Fruit Preserver Name Role Phone Pelon VILLA, Fadumo H Primary Care Physician [facility] [facility] Date(s): 09/29/22 - 10/29/22 [facility] [address] [place] [address]- [place] Allergies, Adverse Reactions, Alerts Substance Reaction Severity Status sulfa drugs Active Adderall 1 Active Alti-LamoTRIgine 2 Active Latex Active 1Patient reports rash with Adderall 2Per [...] influenza virus vaccine, inactivated 06/24/16 Glynn rded [id number] 12y+ bivalent booster vax 07/31/22 Recorded SARS-CoV-2 [...] Recorded tetanus/diphtheria/pertussis, acel(Tdap) 11/09/13 Recorded 1Result Comment: [place] [id number] 2Result Comment: [facility] Medications amoxicillin 500 mg oral tablet [...] Refills, Maintenance, 07/31/22 16:49:00 EDT, [facility], Partial fill upon patient request [...] Care Team Personnel Name: Tiffany Inman Position: [facility] RN Member Role: Primary Care Nurse Name: Fadumo Bird NP Position: [facility] Associate Professional Member Role: PCP Address: Address: [address] [place] [address] Care Team Related Persons Name: CARMITA ALMARAZ Address: [place] [address] Name: BROOKS ALMARAZ Address: home [address] [place] [address] [address] [place], [place] Name: MAINE FELDMAN Address: home [address] [place] [address]
--- OUTSIDE RECORDS SUMMARY | 2024-05-06 09:03 | XMS_ITS | Continuity of Care Document ---
Author Organization [facility] Endocrinolo gy and Diabetes [place] Address [address] [place] [address]- Care Team Providers Care Professor Of Anthropology Name Role Phone Pelon VILLA, Fadumo Tuttle Primary Care Physician Encounter [facility] Date(s): 11/14/22 - 12/14/22 [facility] Endocrinology and Diabetes [place] [address] [place] [address]- Allergies, Adverse Reactions, Alerts Substance Reaction Severity [...] influenza virus vaccine, inactivated 06/24/16 Glynn rded [id number] 12y+ bivalent booster vax 07/31/22 Recorded SARS-CoV-2 [...] tetanus/diphtheria/pertussis, acel(Tdap) 11/09/13 Recorded 1Result Comment: [place] [phone] 2Result Comment: [facility] Medications amoxicillin 500 mg oral tablet See [...] 01/30/21 Stop Date: 08/28/21 Status: Ordered FREESTYLE MAVIS 14 DAY SENSO MISC FREESTYLE MAVIS 14 DAY SENSO MISC, See Instructions, # 2 each, 6 Refills, CHANGE SENSOR EVERY 14 DAYS, 167.6, cm, 12/23/21 9:02:00 EST, Height, 102.3, kg, 09/13/21 7:20:00 EDT, Dry Weight Start Date: 04/14/22 Status: Ordered gabapentin 300 mg oral capsule [...] Weight Start Date: 11/14/22 Status: Ordered Vyvanse 20 mg oral capsule 1 capsule = 20 mg, By Mouth, Daily in AM, Last filled- 11/10/22, # 30 capsule, 0 Refills, Maintenance, 12/08/22 7:30:00 EST, Capsule, [facility], Partial fill upon patient request if the prescription is for a schedule II opioid drug., 167.... Start Date: 12/08/22 Status: Ordered Problem List Condition Confirmation Course [...] Care Team Personnel Name: Tiffany Inman Position: [facility] RN Member Role: Primary Care Nurse Name: Fadumo Bird NP Position: [facility] Associate Professional Member Role: PCP Address: Address: [address] [place] [address] [place] [address]- Care Team Related Persons Name: CARMITA ALMARAZ Address: [place] [address] Name: BROOKS ALMARAZ Address: home [place], [place] Name: MAINE FELDMAN Address: home [address] [place] [address] Name: ORBER RICHTER Address: home [place], [place]
--- OUTSIDE RECORDS SUMMARY | 2024-05-06 09:03 | XMS_ITS | Continuity of Care Document ---
Author Organization [facility] Endocrinolo gy and Diabetes [place] Address [address] [place] [address]- Care Team Providers Care Medical Stenographer Name Role Phone Pelon VILLA, Fadumo Tuttle Primary Care Physician Encounter [facility] Date(s): 04/30/23 - 05/30/23 [facility] [place] [address] [place], [place] [address] Attending Physician: AdmBora waters Admitting Physician: Admtr, Ar8 Referring Physician: Admtr, Ar8 Allergies, Adverse Reactions, Alerts Substance Reaction Severity [...] influenza virus vaccine, inactivated 06/24/16 Glynn rded [id number] 12y+ bivalent booster vax 07/31/22 Recorded SARS-CoV-2 [...] Recorded tetanus/diphtheria/pertussis, acel(Tdap) 11/09/13 Recorded 1Result Comment: [place] [id number] 2Result Comment: [facility] Medications Alcohol Pads See Instructions, # 200 [...] Refills, Maintenance, 10/15/20 12:05:00 EST, [facility], Partial fill upon patient request [...] Daily, # 30 tablet, 0 Refills, Maintenance, 05/25/23 10:54:00 EDT, ER Tablet, [facility], Partial fill upon patient request if the prescription is for a schedule II opioid drug., 168, cm, 05/04/23 6:49:00 EDT,... Start Date: 05/25/23 Status: Ordered dicyclomine 10 mg oral capsule [...] Daily, # 90 tablet, 1 Refills, Maintenance, 05/25/23 11:11:00 EDT, [facility], 168, cm, 05/04/23 6:49:00 EDT, Height, 103, kg, 05/19/23 15:25:00 EDT, Dry Weight Start Date: 05/25/23 Status: Ordered SEROquel 50 mg oral tablet [...] Supply Start Date: 03/26/21 Status: Ordered Trudhesa 0.725 mg/spray nasal spray = 1.45 mg, Nares, Both, 2 times a day, PRN as needed for migraine headache, 0 Refills, Maintenance,05/01/23 9:25:00 EDT, Partial fill upon patient request if the prescription is for a schedule II opioid drug. Start Date: 05/01/23 Status: Ordered Trulicity Pen 1.5 mg/0.5 mL [...] Team Personnel Name: Tiffany Muhammad [place] Position: [facility] RN Member Role: Primary Care Nurse Name: Fadumo Bird NP Position: [facility] Associate Professional Member Role: PCP Address: Address: [address] [place] [address] [place] [address]- Name: Maricel Boyce RN Position: [facility] Onco RN Member Role: Primary Care Nurse Care Team Related Persons Name: CARMITA ALMARAZ Address: [place] [address] Name: BROOKS ALMARAZ Address: [place] [address] Name: MAINE FELDMAN Address: home [address] [place] [address] Name: UNK, UNK Address: home X [place]ST[place]olene [place] [address]
--- OUTSIDE RECORDS SUMMARY | 2024-05-06 09:04 | XMS_ITS | Continuity of Care Document ---
Author Organization [facility] Address [address] [facility], [address] [address]- Care Team Providers Care Digital Media Coordinator Name Role Phone Pelon VILLA, Fadumo Tuttle Primary Care Physician [phone] [place] [facility] [place] - 11/05/22 [facility] [address] [facility], 4th [place], [place] [address] Allergies, Adverse Reactions, Alerts Substance Reaction [...] influenza virus vaccine, inactivated 06/24/16 Glynn rded [id number] 12y+ bivalent booster vax 07/31/22 Recorded SARS-CoV-2 [...] tetanus/diphtheria/pertussis, acel(Tdap) 11/09/13 Recorded 1Result Comment: [place] [id number] 2Result Comment: [facility] Medications amoxicillin 500 mg oral tablet See [...] Maintenance, 10/30/22 16:09:00 EST, Capsule, [facility], [...] Care Team Personnel Name: Tiffany Inman Position: [facility] RN Member Role: Primary Care Nurse Name: Fadumo Bird NP Position: [facility] Associate Professional Member Role: PCP Address: Address: [address] [place] [address] [place] [address]- Care Team Related Persons Name: CARMITA ALMARAZ Address: home [place], [place] Name: BROOKS ALMARAZ Address: home [address] [place] [address] [address] [place], [place] Name: MAINE FELDMAN Address: home [address] [place] [address]
--- OUTSIDE RECORDS SUMMARY | 2024-05-06 09:04 | XMS_ITS | Continuity of Care Document ---
Author Organization [facility] Address [address] [place] [address]- Care Team Providers Care Casework Supervisor Name Role Phone Pelon VILLA, Fadumo Tuttle Primary Care Physician [phone] Encounter [facility] Date(s): 10/21/22 - 11/27/22 [facility] [address] [place] [address]- Attending Physician: Danilo Fernandez MD Referring Physician: Fadumo Bird NP Allergies, Adverse Reactions, Alerts Substance Reaction Severity [...] influenza virus vaccine, inactivated 06/24/16 Glynn rded [id number] 12y+ bivalent booster vax 07/31/22 Recorded SARS-CoV-2 [...] tetanus/diphtheria/pertussis, acel(Tdap) 11/09/13 Recorded 1Result Comment: [place] [id number] 2Result Comment: [facility] Medications amoxicillin 500 mg oral tablet See [...] Refills, Maintenance, 11/14/22 12:02:00 EST, [facility], 167.6, cm, 09/23/22 15:54:00 EST, [...] Maintenance, 10/30/22 16:09:00 EST, Capsule, [facility], Partial fill upon patient request [...] Care Team Personnel Name: Tiffany Inman Position: [facility] RN Member Role: Primary Care Nurse Name: Fadumo Bird NP Position: [facility] Associate Professional Member Role: PCP Address: Address: [address] [place] [address] [place] [address]- [place] Care Team Related Persons Name: CARMITA ALMARAZ Address: home SAME [place], [place] Name: BROOKS ALMARAZ Address: home [address] [place] [address] [address] [place], [place] Name: MAINE FELDMAN Address: home [address] [place] [address]
--- OUTSIDE RECORDS SUMMARY | 2024-05-06 09:04 | XMS_ITS | Continuity of Care Document ---
Author Organization [facility]olo [facility] [place] Address [address] [place] [address]- Care Team Providers Care Wireless Cellular Technician Name Role Phone Pelon VILLA, Fadumo Tuttle Primary Care Physician En[facility] Date(s): 10/16/22 - 11/15/22 [facility] [place] [address] [place] [address]- Allergies, Adverse Reactions, Alerts Substance Reaction Severity [...] Glynn rded influenza virus vaccine, inactivated 08/28/17 Gylnn rded influenza virus vaccine, inactivated 06/24/16 Glynn rded [id number] 12y+ bivalent booster vax 07/31/22 Recorded SARS-CoV-2 [...] Recorded tetanus/diphtheria/pertussis, acel(Tdap) 11/09/13 Recorded 1Result Comment: [place] [id number] 2Result Comment: [facility] Medications amoxicillin 500 mg oral tablet [...] Refills, Maintenance, 11/14/22 12:02:00 EST, [facility], 167.6, cm, 09/23/22 15:54:00 EST, [...] Maintenance, 10/30/22 16:09:00 EST, Capsule, [facility], Partial fill upon patient request [...] Care Team Personnel Name: Tiffany Inman Position: [facility] RN Member Role: Primary Care Nurse Name: Fadumo Bird NP Position: [facility] Associate Professional Member Role: PCP Address: Address: [address] [place] [address] [place] [address]- Care Team Related Persons Name: CARMITA ALMARAZ Address: [place] [address] Name: BROOKS ALMARAZ Address: home [address] [place] [address] [address] [place], [place] Name: MAINE FELDMAN Address: home [address] [place] [address]
--- OUTSIDE RECORDS SUMMARY | 2024-05-06 09:04 | XMS_ITS | Continuity of Care Document ---
Author Organization [facility] Endocrinolo [facility] and Diabetes [place] Address [address] [place] [address]- Care Team Providers Care Hair Tinter Name Role Phone Pelon VILLA, Fadumo Tuttle Primary Care Physician [phone] Encounter [facility] Date(s): 01/20/23 - 02/26/23 [facility] Diabetes [address] [address]- Attending Physician: Danilo Fernandez MD Referring Physician: [...] influenza virus vaccine, inactivated 06/24/16 Glynn rded [id number] 12y+ bivalent booster vax 07/31/22 Recorded SARS-CoV-2 [...] Recorded tetanus/diphtheria/pertussis, acel(Tdap) 11/09/13 Recorded 1Result Comment: [place] [id number] 2Result Comment: [facility] Medications amoxicillin 500 mg oral tablet [...] Care Team Personnel Name: Tiffany Inman Position: [facility] RN Member Role: Primary Care Nurse Name: Fadumo Bird NP Position: [facility] Associate Professional Member Role: PCP Address: Address: [address] [place] [address] Primary Care [place], [place] [address] Name: Maricel Boyce RN Position: [facility] Onco RN Member Role: Primary Care Nurse Care Team Related Persons Name: CARMITA ALMARAZ Address: home SAME [place], [place] Name: BROOKS ALMARAZ Address: home [place], [place] Name: MAINE FELDMAN Address: home [address] [place] [address] Name: ROBRE RICHTER Address: home [place], [place]
--- OUTSIDE RECORDS SUMMARY | 2024-05-06 09:04 | XMS_ITS | Continuity of Care Document ---
Author Organization [facility] Endocrinolo gy and Diabetes [place] Address [address] [place] [address]- Care Team Providers Care Support Specialist Name Role Phone Pelon VILLA, Fadumo Tuttle Primary Care Physician Encounter [facility] Date(s): 03/15/23 - 04/14/23 [facility] Diabetes [address] [address]- Allergies, Adverse Reactions, Alerts Substance Reaction Severity [...] influenza virus vaccine, inactivated 06/24/16 Glynn rded [id number] 12y+ bivalent booster vax 07/31/22 Recorded SARS-CoV-2 [...] Recorded tetanus/diphtheria/pertussis, acel(Tdap) 11/09/13 Recorded 1Result Comment: [place] [id number] 2Result Comment: [facility] Medications amoxicillin 500 mg oral tablet [...] Dry Weight Start Date: 02/09/23 Status: Ordered One Touch Control Solution See [...] Team Personnel Name: Tiffany Muhammad [place] Position: [facility] RN Member Role: Primary Care Nurse Name: Fadumo Bird NP Position: [facility] PC[facility] Associate Professional Member Role: PCP Address: Address: [address] [place] [address] Care [place], [place] [address] Name: Maricel Boyce RN Position: [facility] Onco RN Member Role: Primary Care Nurse Care Team Related Persons Name: CARMITA ALMARAZ Address: home SAME [place], [place] Name: BROOKS ALMARAZ Address: home [place], [place] Name: MAINE FELDMAN Address: home [address] [place] [address] Name: ROBER RICHTER Address: home [place], [place]
--- OUTSIDE RECORDS SUMMARY | 2024-05-06 09:04 | XMS_ITS | Continuity of Care Document ---
Author Organization [facility] Endocrinolo gy and Diabetes [place] Address [address] [place] [address]- Care Team Providers Care Credit Compliance Officer Name Role Phone Pelon VILLA, Fadumo Tuttle Primary Care Physician [phone] Encounter [facility] Date(s): 03/16/23 - 04/15/23 [facility] Diabetes [address] [address]- Allergies, Adverse Reactions, Alerts Substance Reaction Severity [...] influenza virus vaccine, inactivated 06/24/16 Glynn rded [id number] 12y+ bivalent booster vax 07/31/22 Recorded SARS-CoV-2 [...] Recorded tetanus/diphtheria/pertussis, acel(Tdap) 11/09/13 Recorded 1Result Comment: [place] [id number] 2Result Comment: [facility] Medications amoxicillin 500 mg oral [...] Personnel Name: Tiffany Muhammad [place] Position: [facility] RN Member Role: Primary Care Nurse Name: Fadumo Bird NP Position: [facility] PCO Associate Professional Member Role: PCP Address: Address: [address] [place] [address] Care [place], [place] [address] Name: Maricel Boyce RN Position: [facility] Onco RN Member Role: Primary Care Nurse Care Team Related Persons Name: CARMITA ALMARAZ Address: home SAME [place], [place] Name: BROOKS ALMARAZ Address: home [place], [place] Name: MAINE FELDMAN Address: home [address] [place] [address] Name: ROBER RICHTER Address: home [place], [place]
--- OUTSIDE RECORDS SUMMARY | 2024-05-06 09:04 | XMS_ITS | Continuity of Care Document ---
Author Organization [facility] Address [address] [place] [address]- Care Team Providers Care Manager Scheduling Name Role Phone Pelon VILLA, Fadumo Tuttle Primary Care Physician [place] [facility] [place] 12/[place]/23 [facility] [address] [place], [place] [address] Attending Physician: Bora Joseph Admitting Physician: AdmtrBora Referring Physician: Admtr, Ar8 Allergies, Adverse Reactions, [...] influenza virus vaccine, inactivated 06/24/16 Glynn rded [id number] 12y+ bivalent booster vax 07/31/22 Recorded SARS-CoV-2 [...] Recorded tetanus/diphtheria/pertussis, acel(Tdap) 11/09/13 Recorded 1Result Comment: [place] [id number] 2Result Comment: [facility] Medications Alcohol Pads See Instructions, # [...] Refills, Maintenance, 10/15/20 12:05:00 EST, [facility], Partial fill upon patient request [...] Team Personnel Name: Tiffany Muhammad [place] Position: [facility] RN Member Role: Primary Care Nurse Name: Fadumo Bird NP Position: [facility] PC[facility] Associate Professional Member Role: PCP Address: Address: [address] [place] [address] [place] [address]- Name: Maricel Boyce RN Position: [facility] Onco RN Member Role: Primary Care Nurse Care Team Related Persons Name: CARMITA ALMARAZ Address: [place] [address] Name: BROOKS ALMARAZ Address: home [address] [place] [address] Name: MAINE FELDMAN Address: home [address] [place] [address] Name: UNKROBER Address: [place] [address]
--- OUTSIDE RECORDS SUMMARY | 2024-05-06 09:04 | XMS_ITS | Continuity of Care Document ---
Author Organization [facility] Address [address] [facility], 4[address] [place] [address]- Care Team Providers Care Cosmetic Sales Advisor Name Role Phone Pelon VILLA, Fadumo Tuttle Primary Care Physician [facility] [facility](s[place] 10/13/22 - 11/12/22 [facility] [address] [facility], [address] [place], [place] [address] Allergies, Adverse Reactions, Alerts Substance Reaction Severity [...] influenza virus vaccine, inactivated 06/24/16 Glynn rded [id number] 12y+ bivalent booster vax 07/31/22 Recorded SARS-CoV-2 [...] Recorded tetanus/diphtheria/pertussis, acel(Tdap) 11/09/13 Recorded 1Result Comment: [place] [id number] 2Result Comment: [facility] Medications [...] Care Team Personnel Name: Tiffany Inman Position[facility] RN Member Role: Primary Care Nurse Name: Fadumo Bird NP Position: [facility] PCO Associate Professional Member Role: PCP Address: Address: [address] [place] [address] [place] [address]- Care Team Related Persons Name: CARMITA ALMARAZ Address: home SAME [place], [place] Name: BROOKS ALMARAZ Address: home [address] [place] [address] [address] [place], [place] Name: MAINE FELDMAN Address: home [address] [place] [address]
--- OUTSIDE RECORDS SUMMARY | 2024-05-06 09:05 | XMS_ITS | Continuity of Care Document ---
Author Organization [facility] Address [address] [place] [address]- Care Team Providers Care Biological Engineer Name Role Phone Pelon VILLA, Fadumo Tuttle Primary Care Physician [place] [facility] [place](s[place] 11/07/23 - 11/14/23 [facility] [address] [place], [place] [address] Attending Physician: Tristan Xiong MD Referring Physician: Not on Staff, Referring MD Allergies, Adverse Reactions, Alerts Substance Reaction [...] influenza virus vaccine, inactivated 06/24/16 Glynn rded [id number] 12y+ bivalent booster vax 07/31/22 Recorded SARS-CoV-2 [...] tetanus/diphtheria/pertussis, acel(Tdap) 11/09/13 Recorded 1Result Comment: [place] [id number] 2Result Comment: [facility] Medications Alcohol Pads See Instructions, # 200 [...] Refills, Maintenance, 10/15/20 12:05:00 EST, [facility], Partial fill upon patient request [...] Weight Start Date: 04/14/22 Status: Ordered Freestyle Mnoica 3 Sensor Freestyle Monica 3 Sensor, See [...] Team Personnel Name: Tiffany Muhammad [place] Position: [facility] RN Member Role: Primary Care Nurse Name: Fadumo Bird NP Position: [facility] Associate Professional Member Role: PCP Address: Address: [address] [place] [address] [place] [address]- Name: Maricel Boyce RN Position: [facility] Onco RN Member Role: Primary Care Nurse Care Team Related Persons Name: CARMITA ALMARAZ Address: [place] [address] Name: BROOKS ALMARAZ Address: home [address] [place] [address] Name: MAINE FELDMAN Address: home [address] [place] [address] Name: UNK, UNK Address: [place] [address]
--- OUTSIDE RECORDS SUMMARY | 2024-05-06 09:05 | XMS_ITS | Continuity of Care Document ---
Author Organization [facility] Endocrinolo gy and Diabetes [place] Address [address] [place] [address]- Care Team Providers Care Heat Treating Operator Name Role Phone Pelon VILLA, Fadumo Tuttle Primary Care Physician Encounter [facility] Date(s): 11/10/23 - 12/10/23 [facility] Endocrinology and Diabetes [address] [address] Allergies, Adverse Reactions, Alerts Substance Reaction [...] influenza virus vaccine, inactivated 06/24/16 Glynn rded [id number] 12y+ bivalent booster vax 07/31/22 Recorded SARS-CoV-2 [...] Recorded tetanus/diphtheria/pertussis, acel(Tdap) 11/09/13 Recorded 1[place] Comment: [place] [id number] 2Result Comment: [facility] Medications Alcohol Pads See Instructions, # [...] Refills, Maintenance, 10/15/20 12:05:00 EST, [facility], Partial fill upon patient request [...] Team Personnel Name: Tiffany Muhammad [place] Position: [facility] RN Member Role: Primary Care Nurse Name: Fadumo Bird NP Position: [facility] PCO Associate Professional Member Role: PCP Address: Address: [address] [place] [address] [place] [address]- Name: Maricel Boyce RN Position: [facility] Onco RN Member Role: Primary Care Nurse Care Team Related Persons Name: CARMITA ALMARAZ Address: [place] [address] Name: BROOKS ALMARAZ Address: home [address] [place] [address] Name: MAINE FELDMAN Address: home [address] [place] [address] Name: ROBER RICHTER Address: home [place], [place]
--- OUTSIDE RECORDS SUMMARY | 2024-05-06 09:05 | XMS_ITS | Continuity of Care Document ---
Author Organization [facility] Address [address] [place] [address], 4t [place] [address]- Care Team Providers Care Behavioral Pediatrician Name Role Phone Pelon VILLA, Fadumo Tuttle Primary Care Physician [phone] [place] [facility] [place](s): 01/09/23 - 02/08/23 [facility] [place] [facility] [address] [facility], 4th Floor [place], [place] [address] Attending Physician: Bora Joseph Admitting Physician: AdmtrBora [...] influenza virus vaccine, inactivated 06/24/16 Glynn rded [id number] 12y+ bivalent booster vax 07/31/22 Recorded SARS-CoV-2 [...] tetanus/diphtheria/pertussis, acel(Tdap) 11/09/13 Recorded 1Result Comment: [place] [id number] 2Result Comment: [facility] Medications amoxicillin 500 mg oral tablet See Instructions, 4 tablet By Mouth 30-60 min prior to procedure., # 4 tablet, 3 Refills, Maintenance, 10/15/20 12:05:00 EST, [facility], Partial fill upon patient request [...] Refills, Maintenance, 10/30/22 16:12:00 EST, [facility], Partial fill upon patient request [...] Dry Weight Start Date: 07/28/22 Status: Ordered One Touch Control Solution See [...] Care Team Personnel Name: Tiffany Inman Position: [facility] RN Member Role: Primary Care Nurse Name: Fadumo Bird NP Position: [facility] Associate Professional Member Role: PCP Address: Address: [address] [place] [address] [place] [address]- Care Team Related Persons Name: CARMITA ALMARAZ Address: [place] [address] Name: BROOKS ALMARAZ Address: home [place], [place] Name: MAINE FELDMAN Address: home [address] [place] [address] Name: ROBER RICHTER Address: home [place], [place]
--- OUTSIDE RECORDS SUMMARY | 2024-05-06 09:05 | XMS_ITS | Continuity of Care Document ---
Author Organization [facility] Address [address] [place] [address]- Care Team Providers Care Mission Systems Engineer Name Role Phone Pelon VILLA, Fadumo Tuttle Primary Care Physician [place] [facility] [place]s): 11/17/22 - 12/17/22 [facility] [address] [place] [address]- Allergies, Adverse Reactions, Alerts Substance Reaction Severity Status Latex Active Alti-LamoTRIgine 1 Active sulfa drugs Active Adderall 2 Active 1Per patient caused rash 2Patient reports rash with Adderall Immunizations Given and Recorded Vaccine Date Status Refusal Reason influenza virus vaccine, inactivated 07/31/22 Glynn rded influenza virus vaccine, inactivated 08/21/21 Glynn rded influenza virus vaccine, inactivated 1 08/20/20 Gi marely influenza virus vaccine, inactivated 08/26/19 Glynn rded influenza virus vaccine, inactivated 08/28/18 Glynn rded influenza virus vaccine, inactivated 08/28/17 Glynn rded influenza virus vaccine, inactivated 06/24/16 Glynn rded [id number] 12y+ bivalent booster vax 07/31/22 Recorded SARS-CoV-2 [...] Recorded tetanus/diphtheria/pertussis, acel(Tdap) 11/09/13 Recorded 1Result Comment: [place] [id number] 2Result Comment: [facility] Medications amoxicillin 500 mg oral tablet [...] Care Team Personnel Name: Tiffany Inman Position: [facility] RN Member Role: Primary Care Nurse Name: Fadumo Bird NP Position: [facility] PCO Associate Professional Member Role: PCP Address: Address: [address] [place] [address] [place] [address]- [place] Care Team Related Persons Name: CARMITA ALMARAZ Address: [place] [address] Name: BROOKS ALMARAZ Address: [place] [address] Name: MAINE FELDMAN Address: home [address] [place] [address] Name: ROBER RICHTER Address: home [place]
--- OUTSIDE RECORDS SUMMARY | 2024-05-06 09:05 | XMS_ITS | Continuity of Care Document ---
Author Organization [facility] Address [address] [place] [address]- Care Team Providers Care Sow Manager Name Role Phone Pelon VILLA, Fadumo Tuttle Primary Care Physician [place] [facility] [place] 04/01/24 - 05/01/24 [facility] [address] [place] [address]- [place] Allergies, Adverse Reactions, Alerts Substance Reaction [...] virus vaccine, inactivated 06/24/16 Glynn rded SARS-CoV-2(COVID-19)mRNA-LNP vac([id number]) 08/18/23 Recorded [id number] 12y+ bivalent booster vax 07/31/22 Recorded SARS-CoV-2 [...] Recorded tetanus/diphtheria/pertussis, acel(Tdap) 11/09/13 Recorded 1Result Comment: [place] [id number] 2Result Comment: [facility] Medications Alcohol Pads See Instructions, # [...] check Blood Glucose 3 times a day. E11., 02/06/23 16:21:00 EDT, Supply, 166, cm, 12/11/22 [...] day, # 180 tablet, 2 Refills, Maintenance, 04/01/24 16:32:00 EDT, CR Tablet, 168, cm, 02/29/24 7:40:00 EDT, Height, 94.2, kg, 02/24/24 12:19:00 EDT, Dry Weight Start Date: 04/01/24 Status: Ordered rosuvastatin 5 mg oral tablet [...] Trulicity Pen 0.75 mg/0.5 mL subcutaneous solution See Instructions, INJECT 1.5MG SUBCUTANEOUSLY EVERY 7 DAYS, # 4 mL, 2 Refills, Maintenance, 03/27/24 12:51:00 EDT, [facility], 168, cm, 02/29/24 7:40:00 EDT, Height, 94.2, kg, 02/24/24 12:19:00 EDT, Dry Weight Start Date: 03/27/24 Status: Ordered Vyvanse 40 mg oral capsule 1 capsule = 40 mg, By Mouth, Daily in AM, # 30 capsule, 0 Refills, Maintenance, 02/12/24 17:15:00 EDT, Capsule, [id number], Partial fill upon patient request if the prescription is for a schedule II opioid drug., 168, cm, 12/21/23 16:... Start Date: 02/12/24 Status: [...] Team Personnel Name: Tiffany Muhammad [place] Position: [facility] Staff Member Role: Primary Care Nurse Name: Fadumo Bird NP Position: [facility] PCO Associate Professional Member Role: PCP Address: Address: [address] [place] [address] [place] [address]- Name: Austen RNMaricel Position: [facility] Onco RN Member Role: Primary Care Nurse Care Team Related Persons Name: CARMITA ALMARAZ Address: home SAME [place], [place] Name: BROOKS ALMARAZ Address: home [address] [place] [address] Name: MAINE FELDMAN Address: home [address] [place] [address] Name: ROBER RICHTER Address: home [place]
--- OUTSIDE RECORDS SUMMARY | 2024-05-06 09:05 | XMS_ITS | Continuity of Care Document ---
Author Organization [facility] Harry Fierro n's [facility] Address [address], [address] [place] [address]- Care Team Providers Care Office Assistant Name Role Phone Pelon VILLA, Fadumo Tuttle Primary Care Physician En[facility] Date(s): 01/27/23 - 02/26/23 [facility] [address], 4th [address] [place], [place] [address] Allergies, Adverse Reactions, Alerts Substance Reaction Severity [...] influenza virus vaccine, inactivated 06/24/16 Glynn rded [id number] 12y+ bivalent booster vax 07/31/22 Recorded SARS-CoV-2 [...] Recorded tetanus/diphtheria/pertussis, acel(Tdap) 11/09/13 Recorded 1[place] Comment: [place] [id number] 2Result Comment: [facility] Medications amoxicillin 500 mg oral tablet See Instructions, 4 tablet By Mouth 30-60 min prior to procedure., # 4 tablet, 3 Refills, Maintenance, 10/15/20 12:05:00 EST, [facility], Partial fill upon patient request [...] Refills, Maintenance, 10/30/22 16:12:00 EST, [facility] #[facility], Partial fill upon patient request [...] Care Nurse Name: Fadumo Bird NP Position: [facility] PCO Associate Professional Member Role: PCP Address: Address: [address] [place] [address]- Name: Maricel Boyce RN Position: [facility] Onco RN Member Role: Primary Care Nurse Care Team Related Persons Name: CARMITA ALMARAZ Address: home [place], [place] Name: BROOKS ALMARAZ Address: home [place], [place] Name: MAINE FELDMAN Address: home [address] [place] [address] Name: ROBER RICHTER Address: home [place], [place]
--- OUTSIDE RECORDS SUMMARY | 2024-05-06 09:05 | XMS_ITS | Continuity of Care Document ---
Author Organization [facility] [place] Address [address] [place] [address]- Care Team Providers Care Board Of Directors Name Role Phone Pelon VILLA, Fadumo Tuttle Primary Care Physician Encounter [facility] Date(s): 02/06/23 - 03/08/23 [facility] [address] [address]- Allergies, Adverse Reactions, Alerts Substance Reaction Severity [...] influenza virus vaccine, inactivated 06/24/16 Glynn rded [id number] 12y+ bivalent booster vax 07/31/22 Recorded SARS-CoV-2 [...] Recorded tetanus/diphtheria/pertussis, acel(Tdap) 11/09/13 Recorded 1Result Comment: [place] [id number] 2Result Comment: [facility] Medications amoxicillin 500 mg [...] Care Team Personnel Name: Tiffany Inman Position: [facility] RN Member Role: Primary Care Nurse Name: Fadumo Bird NP Position: [facility] PCO Associate Professional Member Role: PCP Address: Address: [address] [place] [address] [place] [address]- Name: Maricel Boyce RN Position: [facility] Onco RN Member Role: Primary Care Nurse Care Team Related Persons Name: CARMITA ALMARAZ Address: home [place], [place] Name: BROOKS ALMARAZ Address: home [place], [place] Name: MAINE FELDMAN Address: home [address] [place] [id number] Name: ROBER RICHTER Address: home [place], [place]
--- OUTSIDE RECORDS SUMMARY | 2024-05-06 09:05 | XMS_ITS | Continuity of Care Document ---
Author Organization [facility] Vadim n's [facility] Address [address], [address] [address]- Care Team Providers Care Manager Of Financial Reporting Name Role Phone Pelon VILLA, Fadumo H Primary Care Physician [place] [facility] [place] 03/24/24 - 04/23/24 [facility] [facility] [address], 4th [place] [address]- Attending Physician: Bora Joseph Admitting Physician: Bora Joseph Referring Physician: AdmtrBora Allergies, Adverse Reactions, Alerts Substance Reaction Severity Status Adderall 1 jorge indio syndrome Acti ve Latex irritation Active sulfa drugs hives Active Valium Active lamoTRIgine jorge indio syndrome Acti ve [...] virus vaccine, inactivated 06/24/16 Glynn rded SARS-CoV-2(COVID-19)mRNA-LNP vac(ftx332) 08/18/23 Recorded [id number] 12y+ bivalent booster vax 07/31/22 Recorded SARS-CoV-2 [...] Recorded tetanus/diphtheria/pertussis, acel(Tdap) 11/09/13 Recorded 1Result Comment: [place] [id number] 2Result Comment: [facility] Medications Alcohol Pads See Instructions, # 200 [...] to check BG 3 times a day. E11., 02/06/23 15:30:00 EDT, [...] 0 Refills, Maintenance, 02/12/24 17:15:00 EDT, Capsule, [id number], Partial fill upon patient request if the [...] Team Personnel Name: Tiffany Muhammad [place] Position: [facility] Office Staff Member Role: Primary Care Nurse Name: Fadumo Bird NP Position: [facility] PCO Associate Professional Member Role: PCP Address: Address: [address] [place] [address] [place] [address]- Name: Maricel Boyce RN Position: [facility] Onco RN Member Role: Primary Care Nurse Care Team Related Persons Name: CARMITA ALMARAZ Address: [place] [address] Name: BROOKS ALMARAZ Address: home [address] [place] [address] Name: MAINE FELDMAN Address: home [address] [place] [address] Name: ROBER RICHTER Address: [place] [address]
--- OUTSIDE RECORDS SUMMARY | 2024-05-06 09:06 | XMS_ITS | Continuity of Care Document ---
Author Organization [facility] Address [address] [place] [address]- Care Team Providers Care Computational Theory Scientist Name Role Phone Pelon VILLA, Fadumo Tuttle Primary Care Physician Encounter [facility] Date(s): 02/09/23 - 03/11/23 [facility] [address] [place] [address]- [place] Allergies, Adverse Reactions, Alerts Substance Reaction [...] influenza virus vaccine, inactivated 06/24/16 Glynn rded [id number] 12y+ bivalent booster vax 07/31/22 Recorded SARS-CoV-2 [...] Recorded tetanus/diphtheria/pertussis, acel(Tdap) 11/09/13 Recorded 1Result Comment: [place] [id number] 2Result Comment: [facility] Medications amoxicillin 500 mg oral tablet [...] Team Personnel Name: Tiffany Inman Position: [facility] RN Member Role: Primary Care Nurse Name: Fadumo Bird NP Position: [facility] PCO Associate Professional Member Role: PCP Address: Address: [address] [place] [address] Primary Care [place], [place] [address] Name: Maricel Boyce RN Position: [facility] Onco RN Member Role: Primary Care Nurse Care Team Related Persons Name: CARMITA ALMARAZ Address: home [place], [place] Name: BROOKS ALMARAZ Address: [place], [place] Name: MAINE FELDMAN Address: home [address] [place] [address] Name: ROBER RICHTER Address: home [place], [place]
--- OUTSIDE RECORDS SUMMARY | 2024-05-06 09:06 | XMS_ITS | Continuity of Care Document ---
Author Organization [facility] Harry Fierro n's [facility] Address [address], [address] [place] [address]- Care Team Providers Care Recruiting Operations Consultant Name Role Phone Pelon VILLA, Fadumo Tuttle Primary Care Physician [phone] Encounter [facility] [id number] Date(s): 01/01/23 - 05/01/23 [facility] Elaineford Agu[employer] [facility] [address], [address] [place], [place] [address] Attending Physician: Abiola Zarate MD Admitting Physician: Abiola Zarate MD Referring Physician: Fadumo Bird NP Allergies, [...] influenza virus vaccine, inactivated 06/24/16 Glynn rded [id number] 12y+ bivalent booster vax 07/31/22 Recorded SARS-CoV-2 [...] tetanus/diphtheria/pertussis, acel(Tdap) 11/09/13 Recorded 1[place] Comment: [place] [id number] 2Result Comment: [facility] Medications amoxicillin 500 mg oral tablet See Instructions, 4 tablet By Mouth 30-60 min prior to procedure., # 4 tablet, 3 Refills, Maintenance, 10/15/20 12:05:00 EST, [facility], Partial fill upon patient request [...] Refills, Maintenance, 10/30/22 16:12:00 EST, [facility] #[facility], Partial fill upon patient request [...] day, # 180 tablet, 2 Refills, Maintenance, 10/13/22 7:19:00 EDT, CR Tablet, 167.6, cm, 08/12/22 [...] EST, Hei... Start Date: 12/16/22 Status: Ordered SEROquel 50 mg oral tablet [...] Team Personnel Name: Tiffany Muhammad [place] Position: [facility] RN Member Role: Primary Care Nurse Name: Fadumo Bird NP Position: [facility] PCO Associate Professional Member Role: PCP Address: Address: [address] [place] [address] [place] [address]- Name: Maricel Boyce RN Position: [facility] Onco RN Member Role: Primary Care Nurse Care Team Related Persons Name: CARMITA ALMARAZ Address: home [place], [place] Name: BROOKS ALMARAZ Address: [place], [place] Name: MAINE FELDMAN Address: home [address] [place] [address] Name: ROBER RICHTER Address: home [place]
--- OUTSIDE RECORDS SUMMARY | 2024-05-06 09:06 | XMS_ITS | Continuity of Care Document ---
Author Organization [facility] Address [address] [place] [address]- Care Team Providers Care Inspector Metal Can Name Role Phone Pelon VILLA, Fadumo Tuttle Primary Care Physician [phone] Encounter 04/11/24 - 04/18/24 [facility] [address], [facility] [address] [place] [address]- Attending Physician: Frida Pollock CNM Admitting Physician: Frida Pollock CNM Referring Physician: Frida Pollock CNM Allergies, Adverse Reactions, Alerts Substance Reaction Severity [...] virus vaccine, inactivated 06/24/16 Glynn rded SARS-CoV-2(COVID-19)mRNA-LNP vac(idr906) 08/18/23 Recorded [id number] 12y+ bivalent booster vax 07/31/22 Recorded SARS-CoV-2 [...] tetanus/diphtheria/pertussis, acel(Tdap) 11/09/13 Recorded 1Result Comment: [place] [id number] 2Result Comment: [facility] Medications Alcohol Pads See Instructions, # [...] 0 Refills, Maintenance, 02/12/24 17:15:00 EDT, Capsule, [id number], Partial fill upon patient request if the [...] mellitus Confirmed Active 1repeat EGD in 2023 Results Radiology Reports * Exam Date Time Procedure Performing Provider Status 04/11/24 4:16 PM MM Digital Mammo Screening Adrianna Marcelo; Auth (Verified) Notes: (MM Digital Mammo Screening) Reason For Exam: Screening RESULT: MM Digital Mammo Screening PROCEDURE: MM Digital Mammo Screening INDICATION: Screening. No known palpable abnormalities. COMPARISON: 03/10/2023 described as a baseline screening. TECHNIQUE: Full-field digital CC and MLO 3D tomosynthesis images of both breasts were acquired. Computer-aided detection (CAD) was utilized in the interpretation of this study. DENSITY: There are scattered areas of fibroglandular density. FINDINGS: New subcentimeter focal nodular asymmetry identified posteriorly in the upper outer quadrant of the left breast best seen on the CC and a 2-D nipple in profile MLO view. No suspicious findings are seen in the right breast. IMPRESSION: Additional imaging recommended. We will recall the patient. RECOMMENDATION: Diagnostic 3D tomosynthesis of the left breast with scheduled ultrasound Spot compression digital left CC and MLO 3D tomosynthesis images are recommended along with focusedbreast ultrasound if findings persist. BI-RADS: 0 (Incomplete - Needs additional imaging evaluation. We will recall the patient.) Lay letter mailed to patient WSN: [id number] Ordering Physician: Frida Pollock Dictated By: Bossman Rosas MD Dictated Date/Time: 04/12/24 11:10 am Reviewed By: Bossman Rosas MD Signed By: Bossman Rosas MD Signed Date/Time: 04/12/24 11:10 am Transcribed By: CARLITO Investor Relations Coordinator Date/Time: 04/12/24 11:00 am Birads: Social History Social History Type Response Smoking Status Former smoker, quit more than 30 days ago entered on: 12/12/20 Sex Patient Care team information Care Team Personnel Name: Tiffany Muhammad [place] Position: [facility] Office Staff Member Role: Primary Care Nurse Name: Fadumo Bird NP Position: [facility] PCO Associate Professional Member Role: PCP Address: Address: [address] [place] [address] [place] [address]- Name: Maricel Boyce RN Position: [facility] Onco RN Member Role: Primary Care Nurse Care Team Related Persons Name: CARMITA ALMARAZ Address: [place] [address] Name: BROOKS ALMARAZ Address: home [address] [place] [address] Name: MAINE FELDMAN Address: home [address] [place] [address] Name: ROBER RICHTER Address: [place] [address]
--- OUTSIDE RECORDS SUMMARY | 2024-05-06 09:06 | XMS_ITS | Continuity of Care Document ---
[facility] Address [address], [address] [address]- Care Team Providers Care Jerker Name Role Phone Pelon VILLA, Fadumo H Primary Care Physician Encounter [facility] Date(s): 03/01/24 - 03/31/24 [facility] [address], 4th [place] [address]- Allergies, Adverse Reactions, Alerts Substance Reaction Severity Status sulfa drugs hives Active Adderall 1 jorge indio syndrome Acti ve Valium Active Latex irritation Active lamoTRIgine jorge indio syndrome [...] virus vaccine, inactivated 06/24/16 Glynn rded SARS-CoV-2(COVID-19)mRNA-LNP vac([id number]) 08/18/23 Recorded [id number] 12y+ bivalent booster vax 07/31/22 Recorded SARS-CoV-2 [...] tetanus/diphtheria/pertussis, acel(Tdap) 11/09/13 Recorded 1Result Comment: [place] [id number] 2Result Comment: [facility] Medications Alcohol Pads See Instructions, # 200 [...] 0 Refills, Maintenance, 02/12/24 17:15:00 EDT, Capsule, [id number], Partial fill upon patient request if the [...] Team Personnel Name: Tiffany Muhammad [place] Position: [facility] Office Staff Member Role: Primary Care Nurse Name: Fadumo Bird NP Position: [facility] PCO Associate Professional Member Role: PCP Address: Address: [address] [place] [address] [place] [address]- Name: Maricel Boyce RN Position: [facility] Onco RN Member Role: Primary Care Nurse Care Team Related Persons Name: CARMITA ALMARAZ Address: [place] [address] Name: BROOKS ALMARAZ Address: home [address] [place] [address] Name: MAINE FELDMAN Address: home [address] [place] [address] Name: ROBER RICHTER Address: [place] [address]
--- OUTSIDE RECORDS SUMMARY | 2024-05-06 09:06 | XMS_ITS | Continuity of Care Document ---
Author Organization [facility] ter Address [address] [place] [address]- Care Team Providers Care Tank Insulator Rubber Name Role Phone Pelon VILLA, Fadumo Tuttle Primary Care Physician [place] [facility] [place]23 - 05/04/[address] [address] Discharge Disposition: A-D/C Home Attending Physician: Abiola [...] influenza virus vaccine, inactivated 06/24/16 Glynn rded [id number] 12y+ bivalent booster vax 07/31/22 Recorded SARS-CoV-2 [...] Recorded tetanus/diphtheria/pertussis, acel(Tdap) 11/09/13 Recorded 1[place] Comment: [place] [id number] 2Result Comment: [facility] Medications amoxicillin 500 mg oral tablet [...] cm, 12/12/20... Start Date: 01/01/21 Status: Ordered Macrobid macrocrystals-monohydrate 100 mg oral capsule 1 capsule = 100 mg, By Mouth, 2 times a day, for 5 days, # 10 capsule, 0 Refills, Acute 05/09/23 10:54:00 EDT, 05/04/23 10:54:00 EDT, Capsule, [facility], Partial fill upon patient request if the prescription is for a schedule II opioid... Start Date: 05/04/23 Stop Date: 05/09/23 Status: Ordered MetFORMIN (Eqv-Glucophage XR) 500 mg [...] to oldest [Reference Range]: 1 2 3 4 Height 168 cm (05/04/23 6:49 AM) 168 cm (05/01/23 9:52 AM) Weight 104.7 kg (05/04/23 6:49 AM) 103.5 kg (05/01/23 9:52 AM) Oxygen Saturation [94-100 %] 99 % (05/04/23 9:00 AM) 98 % (05/04/23 8:45 AM) 97 % (05/04/23 8:30 AM) Pulse Rate [55-90 bpm] 77 bpm (05/04/23 6:49 AM) Body Mass Index [18.5-24.99 kg/m2] 37.1 kg/m2 *>HHI* (05/04/23 6:49 AM) 36.67 kg/m2 *>HHI* (05/01/23 9:52 AM) Blood Pressure [90-138/55-84 mm Hg] 120/80mm Hg (05/04/23 9:00 AM) 129/57mm Hg (05/04/23 8:45 AM) 126/78mm Hg (05/04/23 8:30 AM) Respiratory Rate [16-30 br/min] 21 br/min (05/04/23 9:00 AM) 24 br/min (05/04/23 8:45 AM) 21 br/min (05/04/23 8:30 AM) Temperature [96.8-100.4 DegF] 97.2 DegF (05/04/23 6:49 AM) Liters per Minute 5 L/min (05/04/23 8:00 AM) Mode of Delivery (Oxygen) Room air (05/04/23 9:15 AM) Room air (05/04/23 9:15 AM) Room air (05/04/23 9:00 AM) Room air (05/04/23 9:00 AM) Temperature Route Temporal (05/04/23 6:49 AM) Dry Weight 104.7 kg (05/04/23 6:49 AM) 103.5 kg (05/01/23 9:52 AM) Weight Obtained Via Standing scale (05/04/23 6:49 AM) Patient/family stated (05/01/23 9:52 AM) Dry Weight Obtained Via Patient/family stated (05/01/23 9:52 AM) Social History Social History Type Response Smoking Status Former smoker, quit more than 30 days ago entered on: 12/12/20 Sex Note * Kaykay Jones RN: PERFORM Event Display: Discharge/Transfer Note Hospital Authored Date: [id number] Nursing Discharge Note Entered On: 05/04/2023 9:25 EDT Performed On: 05/04/2023 9:22 EDT by Kaykay Jones RN Nursing Discharge Note 2 Discharge Time : 05/04/2023 9:25 EDT Discharge Level of Care at Discharge : Home/Senior Living/Foster Care Patient Left Unit Via : Wheelchair Patient Accompanied Off Unit with : Responsible adult DC Instructions Provided & Signed by Pt : Yes Patient Understands D/C Instructions : Yes Verbalized Understanding of D/C Plan By : Patient Patient Instructions Discharge Signed : Yes Did Pt have Specialty Bed or Wound Vac : No Kaykay Jones RN - 05/04/2023 9:22 EDT * Kaykay Jones RN: PERFORM Event Display: Patient Education/Instruction Authored Date: [id number] Inpatient Adult Discharge Instructions [address] [address] Name: LEXIE ALMARAZ : 1985 Visit: 05/04/2023 05:58:00 Current Date: 05/04/2023 08:50 Account: [id number] Inpatient Adult Discharge Instructions We would like to thank [...] and their families. Surveys are administered by [employer] ?? If further treatment with your primary care physician or another doctor is recommended, it is important for you to keep the appointment. Call your primary care physician or return to the Emergency Department immediately if your condition worsens, fails to improve, or new symptoms develop. If you need to find a doctor, you can call [facility] [employer] for a referral at [phone] or toll free at [phone]) or log in to [email or web address].. ?? You can view and manage your care through the patient portal or by using a health care audrey of your choosing. [employer] is a website that allows you to securely view your medical information including your hospital discharge summary, office visit summaries, medications and follow-up visits. You can also request appointments, renew medications, and request access to your medical information using a health care audrey of your choosing, or just ask a question. You can enroll at [email or web address] or register during your next office visit. You have been discharged from [facility], Patient Care Unit: [facility]. If you have any questions regarding these instructions after you leave, please call us and we will be happy to assist you. [facility] Your Care Team Attending Physician Abiola Zarate MD Discharging Providers Lucero Mooney DO Reason for Admission URGE INCONTINENCEDS CS Tests Performed Below is a partial list of the tests performed during your hospitalization. You may have had other tests and procedures not included in this list. Please discuss all test results with your provider. GLUCOSE POC Primary Care Provider Fadumo Bird NP Advance Directive Health Care Proxy on File Yes - Health Care Proxy Discharge Vitals Temperature: 97.2 DegF Height: 168 cm Pulse Rate: 77 bpm Weight: 104.7 kg Respiratory Rate: 21 br/min Body Mass Index:??37.1 kg/m2??Critical Systolic Blood Pressure: 126 mm Hg Body surface area: 2.21 Diastolic Blood Pressure: 78 mm Hg ?? Oxygen Saturation: 97 % ?? Studies Pending All tests and labs ordered during this hospital stay have been completed unless listed below. Please discuss all pending results with your provider listed above in these instructions. ?? No incomplete studies found What to do next Instructions From Your Doctor Discharge Orders Instructions from your Care Team Bactrim sent to your pharmacy for package pick up. Please refer to provider specific instructions. Scheduled Follow-Up Appointments Thursday 2:40 PM EDT ?? With: Abiola Zarate MD Where: [facility] [address] [place] [address]- Status: Pending Thursday 2:00 PM EDT ?? With: Fadumo Bird NP Where: [facility] [address] [place] [address]- Status: Pending You Need to Schedule the Following Appointments Follow Up with??Abiola Zarate Where: [address] [facility], [address] [facility] [place] [address]- Business (1) Follow Up with??Fadumo Bird When:??In 0 days Discharge Medications LEXIE ALMARAZ :1985 Visit Date:05/04/2023 Medications: Please continue your medications until treatment is completed or stopped by your provider. Medications not listed below should be discontinued. Discuss any questions related to medications with your provider. What How Much When Instructions Next Dose New Sulfamethoxazole/ Trimethoprim (Bactrim DS 800 mg-160mg oral tablet) 1 tab(s) Oral Twice a day Duration: 3 Days Pickup at [facility] Unchanged Amoxicillin (amoxicillin 500 mg oral tablet) See instructions 4 tablet By Mouth ??30-60 min prior to procedure. ?? Unchanged Baclofen (baclofen 10 mg oral tablet) See instructions 1 tablet By Mouth 2 to 3 times a day as needed for pain ?? Unchanged cariprazine (cariprazine 6 mg oral capsule) 1 capsule Oral Daily Unchanged Darifenacin (darifenacin 15 mg oral tablet, extended release) 1 tab(s) Oral Daily Unchanged Dicyclomine (dicyclomine 10 mg oral capsule) 1 capsule Oral 4 times a day as needed for pain/diarrhea Duration: 90 Days Unchanged Dihydroergotamine (Trudhesa 0.725 mg/ spray nasal spray) 1.45 Milligram Nares, Both Twice a day as needed for as needed for migraine headache Unchanged dulaglutide (Trulicity Pen 1.5 mg/ 0.5 mL subcutaneous solution) 1.5 Milligram Subcutaneous Infusion Every week Unchanged Durable Medical Equipment (Freestyle Lancets) See [...] scheduled appointment time. ?? Unchanged lisdexamfetamine (Vyvanse 30 mg oral capsule) 1 capsule Oral Daily in the morning Fill when it's due ?? Unchanged Loratadine (Claritin 10 mg oral tablet) 1 tab(s) Oral Daily Unchanged Metformin (MetFORMIN (Eqv-Glucophage XR) 500 mg oral tablet, extended release) 2 tab(s) Oral Twice a day Unchanged Miscellaneous [...] 1 tab(s) Oral Twice a day Unchanged Polyethylene Glycol 3350 (MiraLax oral powder for reconstitution) 17 gram Oral Daily dissolve in water before taking ?? Unchanged Quetiapine (SEROquel 50 mg oral tablet) 1 tab(s) Oral Daily at Bedtime Unchanged rimegepant (Nurtec ODT 75 mg oral tablet, disintegrating) 1 tab(s) Oral Every other day Unchanged Rosuvastatin (rosuvastatin 5 mg oral tablet) 1 tab(s) Oral Daily Pharmacy Information [facility]: [address] [place] [phone] Test Results Below is a partial list of the most recent Laboratory test results done prior to this discharge. You may have had other tests and procedures not included in this list. Please discuss all test resultswith your provider. GLUCOSE POC (05/04/2023) ???Glucose, POC - 197 mg/dL Allergies (NKA means No Known Allergies) Adderall??(jorge indio syndrome) Latex??(irritation) lamoTRIgine??(jorge indio syndrome) sulfa drugs??(hives) Problems Active Problems??(14) ADHD?? Anxiety?? Chong esophagus?? Bipolar I disorder?? Depression?? IBS (irritable bowel syndrome)?? Intertrigo?? Migraine?? Mixed incontinence?? Onychomycosis of multiple toenails with type 2 diabetes mellitus?? Pulmonic stenosis?? Severe obesity (BMI 35.0-39.9) with comorbidity?? Thoracic outlet syndrome?? Type 2 diabetes mellitus?? Education Materials Below is the list of Educational Leaflet Providered with your Discharge Instructions. Surgery Medical Daystay Surgical Overnight Discharge Instructions?NSAID Analgesic Schedule?? Valuables and Belongings I fully understand and agree that [facility] accepts no responsibility for all my [...] to send valuables and belongings home. ?? Date for Pt to Sign Valuables/Belongings: 05/04/23 06:49:00 ?? Valuables & Belongings ?? Clothes Electronic devices Jewelry Monetary Items Personal devices Miscellaneous Medications (Valuables) Valuables at Bedside Jacket, Pants, Shirt, Shoes, Undergarments Cell phone ?? Wallet ? Valuables Sent Home ? Valuables Sent to Security ? Other Discharge Information ? Pulmonary Rehab Status?? Pulmonary Rehab Discharge Status?? Respiratory Rate: 21 br/min ? Common Emergency Awareness Tips IS IT [...] are strongly encouraged to quit. Please call [facility] [employer] at [phone] or [phone]) or log in to [email or web address] for referrals to smoking cessation programs. ?? 320 Suicide & Crisis Lifeline is available 01/06 if you or someone you know needs to find a reason to keep living. By calling 295 you'll be connected to a skilled, trained counselor at a crisis center in your area. INPATIENT DISCHARGE INSTRUCTIONS SIGNATURE PAGE SUNGSWAPNILLEXIE Location:[facility] Registration Date and Time:05/04/2023 05:58 EDT Primary Care Physician: Fadumo Bird NP, Attending Physician: Abiola Zarate MD, I LEXIE ALMARAZ, have received the above patient education materials/instructions and have verbalized understanding. If ambulance or transport services are being used I further acknowledge beinggiven a choice of service. ?? If you need to contact me, please call me at this number: . Patient/Property Insurance Agent Name:__SUNG LEXIE __ Patient/Property Insurance Agent Signature: Relationship to Patient:_Self_ Witness Name/Signature:_Alysha RN_ Date:_05/04/23_ * Kaykay Jones RN: PERFORM, SIGN, VERIFY Event Display: Patient Education Handout Authored Date: [id number] * Kaykay Jones RN: PERFORM Event Display: Patient Education Leaflets Authored Date: [id number] Surgery Medical Daystay Surgical Overnight Discharge Instructions [...] not drive or drink alcohol. ? * Robert STANFORD, Kaykay: PERFORM Event Display: Patient Education Leaflets Authored Date: [id number] NSAID Analgesic Schedule ?? 604 NSAID???s Analgesic [...] Team Personnel Name: Tiffany Muhammad [place] Position: [facility] RN Member Role: Primary Care Nurse Name: Fadumo Bird NP Position: [facility] PCO Associate Professional Member Role: PCP Address: Address: [address] [place] [address] [place] [address]- Name: Maricel Boyce RN Position: [facility] Onco RN Member Role: Primary Care Nurse Care Team Related Persons Name: CARMITA ALMARAZ Address: [place] [address] Name: BROOKS ALMARAZ Address: home [place], [place] Name: MAINE FELDMAN Address: home [address] [place] [address] Name: ROBER RICHTER Address: home [place], [place]
--- OUTSIDE RECORDS SUMMARY | 2024-05-06 09:06 | XMS_ITS | Continuity of Care Document ---
Author Organization [facility] [place] Address [address] [place] [address]- Care Team Providers Care Transfer Coordinator Name Role Phone Pelon VILLA, Fadumo Tuttle Primary Care Physician Encounter [facility] Date(s): 02/05/23 - 03/07/23 [facility] [address] [address]- Allergies, Adverse Reactions, Alerts Substance Reaction Severity [...] influenza virus vaccine, inactivated 06/24/16 Glynn rded [id number] 12y+ bivalent booster vax 07/31/22 Recorded SARS-CoV-2 [...] Recorded tetanus/diphtheria/pertussis, acel(Tdap) 11/09/13 Recorded 1Result Comment: [place] 489[address]-263-10 2Result Comment: [facility] Medications amoxicillin 500 mg oral tablet See [...] Care Team Personnel Name: Tiffany Inman Position: [facility] RN Member Role: Primary Care Nurse Name: Fadumo Bird NP Position: [facility] PCO Associate Professional Member Role: PCP Address: Address: [address] [place] [address] [place] [address]- Name: Maricel Boyce RN Position: [facility] Onco RN Member Role: Primary Care Nurse Care Team Related Persons Name: CARMITA ALMARAZ Address: home [place], [place] Name: BROOKS ALMARAZ Address: home [place], [place] Name: MAINE FELDMAN Address: home [address] [place] [address] Name: ROBER RICHTER Address: home [place], [place]
--- OUTSIDE RECORDS SUMMARY | 2024-05-06 09:06 | XMS_ITS | Continuity of Care Document ---
Author Organization [facility] Address [address] [place] [address]- Care Team Providers Care Neck Cutter Name Role Phone Pelon VILLA, Fadumo H Primary Care Physician [place] [facility] [place] 10/03/22 - 11/02/22 [facility] [address] [place] [address]- [place] Allergies, Adverse Reactions, Alerts Substance Reaction [...] influenza virus vaccine, inactivated 06/24/16 Glynn rded [id number] 12y+ bivalent booster vax 07/31/22 Recorded SARS-CoV-2 [...] Recorded tetanus/diphtheria/pertussis, acel(Tdap) 11/09/13 Recorded 1Result Comment: [place] [id number] 2Result Comment: [facility] Medications amoxicillin 500 mg oral tablet [...] Care team information Care Team Personnel Name: Yazanraghuandersonshyam ZAVALAAlexandreTiffnay Position: [facility] RN Member Role: Primary Care Nurse Name: Fadumo Bird NP Position: [facility] PCO Associate Professional Member Role: PCP Address: Address: [address] [place] [address] [place] [address]- Care Team Related Persons Name: CARMITA ALMARAZ Address: home [place], [place] Name: BROOKS ALMARAZ Address: home [address] [place] [address] [address] [place], [place] Name: MAINE FELDMAN Address: home [address] [place] [address]
--- OUTSIDE RECORDS SUMMARY | 2024-05-06 09:07 | XMS_ITS | Continuity of Care Document ---
Author Organization [facility] Address [address] [facility] [place], [address] [place] [address]- Care Team Providers Care Junior Project Manager Name Role Phone Pelon VILLA, Fadumo Tuttle Primary Care Physician [place] [facility] [place] [facility] [address] [place] [place], [place] [address] Allergies, Adverse Reactions, Alerts Substance Reaction Severity [...] influenza virus vaccine, inactivated 06/24/16 Glynn rded [id number] 12y+ bivalent booster vax 07/31/22 Recorded SARS-CoV-2 [...] tetanus/diphtheria/pertussis, acel(Tdap) 11/09/13 Recorded 1Result Comment: [place] [id number] 2Result Comment: [facility] Medications amoxicillin 500 mg oral tablet See [...] Care Team Personnel Name: Tiffany Inman Position: [facility] RN Member Role: Primary Care Nurse Name: Fadumo Bird NP Position: [facility] PC[facility] Associate Professional Member Role: PCP Address: Address: [address] [place] [address] [place] [address]- Care Team Related Persons Name: CARMITA ALMARAZ Address: home [place], [place] Name: BROOKS ALMARAZ Address: home [address] [place] [address] [address] [place], [place] Name: MAINE FELDMAN Address: home [address] [place] [address]
--- OUTSIDE RECORDS SUMMARY | 2024-05-06 09:07 | XMS_ITS | Continuity of Care Document ---
Author Organization [facility] Address [address] [place] [address]- Care Team Providers Care Locket Maker Name Role Phone Pelon VILLA, Fadumo Tuttle Primary Care Physician [phone] Encounter [facility] Date(s): 10/07/22 - 11/06/22 [facility] [address] [place], [place] [address] Allergies, Adverse Reactions, Alerts Substance Reaction [...] influenza virus vaccine, inactivated 06/24/16 Glynn rded [id number] 12y+ bivalent booster vax 07/31/22 Recorded SARS-CoV-2 [...] tetanus/diphtheria/pertussis, acel(Tdap) 11/09/13 Recorded 1Result Comment: [place] [address]-353-86 2Result Comment: [facility] Medications amoxicillin 500 mg oral tablet See [...] Care Team Personnel Name: Tiffany Inman Position: [facility] RN Member Role: Primary Care Nurse Name: Fadumo Bird NP Position: [facility] PCO Associate Professional Member Role: PCP Address: Address: [address] [place] [address] [place] [address]- Care Team Related Persons Name: CARMITA ALMARAZ Address: home [place], [place] Name: BROOKS ALMARAZ Address: home [address] [place] [address] [address] [place], [place] Name: MAINE FELDMAN Address: home [address] [place] [address]
--- OUTSIDE RECORDS SUMMARY | 2024-05-06 09:07 | XMS_ITS | Continuity of Care Document ---
Author Organization [facility] Address [address] [facility] [place] [address]- Care Team Providers Care Healthcare Representative Name Role Phone Pelon VILLA, Fadumo Tuttle Primary Care Physician [place] [facility] [place] 02/08/23 [facility] [address] [facility] Floor [place], [place] [address] Allergies, Adverse Reactions, Alerts Substance [...] influenza virus vaccine, inactivated 06/24/16 Glynn rded [id number] 12y+ bivalent booster vax 07/31/22 Recorded SARS-CoV-2 (COVID-19) mRNA BNT-162b2 vac 08/21/21 Recorded SARS-CoV-2 (COVID-19) mRNA BNT-162b2 vac 01/25/21 Recorded SARS-CoV-2 (COVID-19) mRNA BNT-162b2 vac 2 01/02/21 Recorded Measles/Mumps/Rubella Virus Vaccine 03/22/21 Recor ded Measles/Mumps/Rubella Virus Vaccine 02/14/16 Recor ded hepatitis B adult vaccine 03/22/21 Recorded hepatitis B adult vaccine 03/13/16 Recorded hepatitis B adult vaccine 4/7/16 Recorded Influenza Virus Vaccine (oldterm) 06/29/19 Recorde d tetanus-diphtheria toxoids (Td) 06/29/19 Recorded tetanus/diphtheria/pertussis, acel(Tdap) 06/13/19 Recorded tetanus/diphtheria/pertussis, acel(Tdap) 11/09/13 Recorded 1Result Comment: [place] [id number] 2Result Comment: [facility] Medications amoxicillin 500 mg oral tablet See Instructions, 4 tablet By Mouth 30-60 min prior to procedure., # 4 tablet, 3 Refills, Maintenance, 10/15/20 12:05:00 EST, [facility], Partial fill upon patient request [...] Refills, Maintenance, 10/30/22 16:12:00 EST, [facility], Partial fill upon patient request [...] Care Team Personnel Name: Tiffany Inman Position: [facility] RN Member Role: Primary Care Nurse Name: Fadumo Bird NP Position: [facility] PCO Associate Professional Member Role: PCP Address: Address: [address] [place] [address]- [place] Care Team Related Persons Name: CARMITA ALMARAZ Address: [place] [address] Name: BROOKS ALMARAZ Address: home [place], [place] Name: MAINE FELDMAN Address: home [address] [place] [address] Name: ROBER RICHTER Address: home [place], [place]
--- OUTSIDE RECORDS SUMMARY | 2024-05-06 09:07 | XMS_ITS | Continuity of Care Document ---
Author Organization [facility] Address [address] [place] [address]- Care Team Providers Care General Teller Name Role Phone Pelon VILLA, Fadumo Tuttle Primary Care Physician [phone] Encounter [facility] Date(s): 02/09/23 - 03/11/23 [facility] [address] [place] [address] Allergies, Adverse Reactions, Alerts Substance [...] influenza virus vaccine, inactivated 06/24/16 Glynn rded [id number] 12y+ bivalent booster vax 07/31/22 Recorded SARS-CoV-2 [...] tetanus/diphtheria/pertussis, acel(Tdap) 11/09/13 Recorded 1Result Comment: [place] [id number] 2Result Comment: [facility] Medications amoxicillin 500 mg oral tablet [...] cm, 03/05/20 15:02:00 EDT, Height, 106.6, kg, ... Start Date: 03/09/20 Status: Ordered Fiber Choice [...] Name: Fadumo Bird NP Position: [facility] PCO Associate Professional Member Role: PCP Address: Address: [address] [place] [address] [place] [address]- Name: Maricel Boyce RN Position: [facility] Onco RN Member Role: Primary Care Nurse Care Team Related Persons Name: CARMITA ALMARAZ Address: home [place], [place] Name: BROOKS ALMARAZ Address: home [place], [place] Name: MAINE FELDMAN Address: home [address] [place] [address] Name: ROBER RICHTER Address: home [place]
--- OUTSIDE RECORDS SUMMARY | 2024-05-06 09:07 | XMS_ITS | Continuity of Care Document ---
Author Organization [facility] Address [address], [address] [place] [address]- Care Team Providers Care Butadiene Converter Utility Operator Name Role Phone Pelon VILLA, Fadumo Tuttle Primary Care Physician Encounter [facility] Date(s): 06/23/23 - 07/23/23 [facility] [address], [address] [place] [address]- Allergies, Adverse Reactions, Alerts Substance Reaction Severity Status Adderall 1 jorge indio syndrome Acti ve Latex irritation Active lamoTRIgine jorge indio syndrome Acti ve sulfa drugs hives Active 1Patient reports rash with Adderall Immunizations Given [...] influenza virus vaccine, inactivated 06/24/16 Glynn rded [id number] 12y+ bivalent booster vax 07/31/22 Recorded SARS-CoV-2 [...] tetanus/diphtheria/pertussis, acel(Tdap) 11/09/13 Recorded 1Result Comment: [place] [id number] 2Result Comment: [facility] Medications Alcohol Pads See Instructions, # [...] Refills, Maintenance, 10/15/20 12:05:00 EST, [facility], Partial fill upon patient request [...] Daily, # 30 tablet, 3 Refills, Maintenance, 06/23/23 10:12:00 EDT, ER Tablet, [facility], Partial fill upon patient request if the prescription is for a schedule II opioid drug., 168, cm, 05/04/23 6:49:00 EDT,... Start Date: 06/23/23 Status: Ordered dicyclomine 10 mg oral capsule [...] 4 times a day with cell phone. E11., 04/30/23 8:15:00 EDT, Supply, 166, cm, 04/30/23 [...] Team Personnel Name: Tiffany Muhammad [place] Position: [facility] RN Member Role: Primary Care Nurse Name: Fadumo Bird NP Position: [facility] Associate Professional Member Role: PCP Address: Address: [address] [place] [address] [place] [address]- Name: Maricel Boyce RN Position: [facility] Onco RN Member Role: Primary Care Nurse Care Team Related Persons Name: CARMITA ALMARAZ Address: home [place], [place] Name: BROOKS ALMARAZ Address: home [place], [place] Name: MAINE FELDMAN Address: home [address] [place] [address] Name: ROBER RICHTER Address: home [place], [place]
--- OUTSIDE RECORDS SUMMARY | 2024-05-06 09:07 | XMS_ITS | Continuity of Care Document ---
Author Organization [facility] Address [address] [place] [address]- Care Team Providers Care Locomotive Firer Name Role Phone Pelon VILLA, Fadumo Tuttle Primary Care Physician Encounter [facility] Date(s): 05/21/23 - 06/20/23 [facility] [address] [place] [address] Allergies, Adverse Reactions, Alerts Substance Reaction [...] influenza virus vaccine, inactivated 06/24/16 Glynn rded [id number] 12y+ bivalent booster vax 07/31/22 Recorded SARS-CoV-2 [...] tetanus/diphtheria/pertussis, acel(Tdap) 11/09/13 Recorded 1Result Comment: [place] [id number] 2Result Comment: [facility] Medications Alcohol Pads See Instructions, # [...] Refills, Maintenance, 10/15/20 12:05:00 EST, [facility], Partial fill upon patient request [...] Team Personnel Name: Tiffany Muhammad [place] Position: [facility] RN Member Role: Primary Care Nurse Name: Fadumo Bird NP Position: [facility] Associate Professional Member Role: PCP Address: Address: [address] [place] [address] [place], [place] - Name: Maricel Boyce RN Position: [facility] Onco RN Member Role: Primary Care Nurse Care Team Related Persons Name: CARMITA ALMARAZ Address: home [place], [place] Name: BROOKS ALMARAZ Address: home [place], [place] Name: MAINE FELDMAN Address: home [address] [place] [id number] Name: ROBER RICHTER Address: home [place], [place]
--- OUTSIDE RECORDS SUMMARY | 2024-05-06 09:07 | XMS_ITS | Continuity of Care Document ---
Author Organization [facility] Address [address], [address] [place] [address]- Care Team Providers Care Buckle Strap Puncher Name Role Phone Pelon VILLA, Fadumo Tuttle Primary Care Physician [phone] [facility] Date(s): 05/04/23 - 06/03/23 [facility] [address] [place], [place] [address] Allergies, Adverse Reactions, Alerts [...] influenza virus vaccine, inactivated 06/24/16 Glynn rded [id number] 12y+ bivalent booster vax 07/31/22 Recorded SARS-CoV-2 [...] Recorded tetanus/diphtheria/pertussis, acel(Tdap) 11/09/13 Recorded 1Result Comment: [place] [id number] 2Result Comment: [facility] Medic[facility] Alcohol Pads See Instructions, # [...] Refills, Maintenance, 10/15/20 12:05:00 EST, [facility], Partial fill upon patient request [...] Team Personnel Name: Tiffany Muhammad [place] Position: [facility] RN Member Role: Primary Care Nurse Name: Fadumo Bird NP Position: [facility] PC[facility] Associate Professional Member Role: PCP Address: Address: [address] [place] [address] Primary Care [place], [place] [address] Name: Maricel Boyce RN Position: [facility] Onco RN Member Role: Primary Care Nurse Care Team Related Persons Name: CARMITA ALMARAZ Address: home [place], [place] Name: BROOKS ALMARAZ Address: home [place], [place] Name: MAINE FELDMAN Address: home [address] [place] [id number] Name: ROBER RICHTER Address: home [place], [place]
--- OUTSIDE RECORDS SUMMARY | 2024-05-06 09:07 | XMS_ITS | Continuity of Care Document ---
Author Organization [facility] Address [address], [address] [place] [address]- Care Team Providers Care Cpr Instructor Name Role Phone Pelon VILLA, Fadumo Tuttle Primary Care Physician Encounter [facility] Date(s): 01/09/23 - 01/16/23 [facility] [address] [place], [place] [address] Attending Physician: Abiola Zarate MD Referring Physician: Lissett Becerril DO Allergies, Adverse Reactions, Alerts Substance Reaction Severity [...] influenza virus vaccine, inactivated 06/24/16 Glynn rded [id number] 12y+ bivalent booster vax 07/31/22 Recorded SARS-CoV-2 [...] tetanus/diphtheria/pertussis, acel(Tdap) 11/09/13 Recorded 1Result Comment: [place] [phone] 2Result Comment: [facility] Medications amoxicillin 500 mg [...] Care Team Personnel Name: Tiffany Inman Position: [facility] RN Member Role: Primary Care Nurse Name: Fadumo Bird NP Position: [facility] Associate Professional Member Role: PCP Address: Address: [address] [place] [address] [place] [address]- Care Team Related Persons Name: CARMITA ALMARAZ Address: home [place], [place] Name: BROOKS ALMARAZ Address: home [place] Name: MAINE FELDMAN Address: home [address] [place] [address] Name: ROBER RICHTER Address: home [place], [place]
--- OUTSIDE RECORDS SUMMARY | 2024-05-06 09:07 | XMS_ITS | Continuity of Care Document ---
Author Organization [facility] Address [address], [address] [place] [address]- Care Team Providers Care Stretcher Drier Operator Name Role Phone Pelon VILLA, Fadumo Tuttle Primary Care Physician [phone] [facility] Date(s): 05/19/23 - 06/18/23 [facility] [address] [place], [place] [address] Attending Physician: Bora Joseph Admitting Physician: AdmBora waters Referring Physician: AdmtrBora Allergies, Adverse Reactions, Alerts Substance Reaction Severity Status sulfa drugs hives Active Adderall 1 jorge indio syndrome Acti ve Latex irritation Active lamoTRIgine jorge indio syndrome Acti ve 1Patient reports rash with Adderall Immunizations Given and Recorded Vaccine Date Status Refusal Reason influenza virus vaccine, inactivated 07/31/22 Gylnn rded influenza virus vaccine, inactivated 08/21/21 Glynn rded influenza virus vaccine, inactivated 1 08/20/20 Gi marely influenza virus vaccine, inactivated 08/26/19 Glynn rded influenza virus vaccine, inactivated 08/28/18 Glynn rded influenza virus vaccine, inactivated 08/28/17 Glynn rded influenza virus vaccine, inactivated 06/24/16 Glynn rded [id number] 12y+ bivalent booster vax 07/31/22 Recorded SARS-CoV-2 [...] Recorded tetanus/diphtheria/pertussis, acel(Tdap) 11/09/13 Recorded 1Result Comment: [place] [id number] 2Result Comment: [facility] Medications Alcohol [...] Refills, Maintenance, 10/15/20 12:05:00 EST, [facility], Partial fill upon patient request [...] Team Personnel Name: Tiffany Muhammad [place] Position: [facility] RN Member Role: Primary Care Nurse Name: Fadumo Bird NP Position: [facility] Associate Professional Member Role: PCP Address: Address: [address] [place] [address] [place] [address]- Name: Maricel Boyce RN Position: [facility] Onco RN Member Role: Primary Care Nurse Care Team Related Persons Name: CARMITA ALMARAZ Address: home [place], [place] Name: BROOKS ALMARAZ Address: [place], [place] Name: MAINE FELDMAN Address: home [address] [place] [address] Name: ROBER RICHTER Address: [place] [address]
[2024-05-06 09:21] VITALS: BP 146/86; PULSE 70; RESP 18; TEMP 36.9; O2SAT 98
[2024-05-06 09:22] VITALS: BMI 32.8
[2024-05-06 11:55] VITALS: BP 127/75; PULSE 76; RESP 16; TEMP 36.6; O2SAT 97
[2024-05-06 12:10] VITALS: BP 123/79; PULSE 73; RESP 16; O2SAT 95
[2024-05-06 12:25] VITALS: BP 112/77; PULSE 80; RESP 16; O2SAT 99
[2024-05-06 12:40] VITALS: BP 113/76; PULSE 82; RESP 16; TEMP 36.4; O2SAT 99
[2024-05-06 12:57] LABS: CSF Appearance Clear, Colorless; CSF Tube # 1
[2024-05-06 13:14] LABS: Glucose CSF 88 mg/dL; Total Protein CSF 37.1 mg/dL (15-45)
[2024-05-06 13:33] LABS: Oligoclonal Serum Yes
[2024-05-06 13:51] LABS: Appearance CSF CLEAR; CSF Tube # 1; CSF Tube # 4; Color CSF COLORLESS; Red Blood Cell CSF 0 MM*3; White Blood Cell CSF 0 MM*3
[2024-05-06 13:52] LABS: Color CSF COLORLESS; Red Blood Cell CSF 0 MM*3; White Blood Cell CSF 0 MM*3
[2024-05-10 12:00] LABS: Albumin 4.3 g/dL (3.6-5.1); IgG 675 mg/dL (600-1640); IgG Synthesis Rate -1.4 mg/24 h (-9.9-3.3); IgG, CSF 1.5 mg/dL (0.8-7.7)
[2024-05-11 19:43] LABS: Oligoclonal Banding Absent (Absent)
== END 2024-05-06 12:45 | disposition home or self-care (01) ==
PROVIDERS: Physician Assistant Surgical; PCP Nurse Practitioner Family; Visit Provider Nurse Practitioner Family
PROC: 009U3ZZ Drainage of Spinal Canal, Percutaneous Approach (ICD-10-PCS; CPT 62270; principal; 2024-05-06 11:00)
DX: G47.19 Other hypersomnia (principal); G47.9 Sleep disorder, unspecified; G47.411 Narcolepsy with cataplexy; G43.709 Chronic migraine without aura, not intractable, without status migrainosus; G24.3 Spasmodic torticollis; E11.9 Type 2 diabetes mellitus without complications; Z79.84 Long term (current) use of oral hypoglycemic drugs; Z79.85 Long-term (current) use of injectable non-insulin antidiabetic drugs; Z79.899 Other long term (current) drug therapy; Z88.2 Allergy status to sulfonamides; Z88.8 Allergy status to other drugs, medicaments and biological substances; Z91.040 Latex allergy status; Z87.891 Personal history of nicotine dependence; Z98.890 Other specified postprocedural states
CPT/HCPCS: 62328; 82042; 82945; 83519; 83916; 84157; 86335; 87015; 87070; 87205; 89051

== ENCOUNTER → 2024-05-06 10:40 | Outpatient (BNV) | payer OTHER, MEDICAID, SELFPAY | PROVIDERS: PCP Nurse Practitioner Family; Visit Provider Physician Assistant Surgical | DX: G47.411 Narcolepsy with cataplexy (principal) | CPT/HCPCS: 62328 ==

== ENCOUNTER → 2024-06-16 20:30 | Outpatient (REF) | payer BC, MEDICAID, SELFPAY | LOC: HO.SL 20:30 | PROVIDERS: Visit Provider Nurse Practitioner Family | DX: G47.411 Narcolepsy with cataplexy (principal); G47.10 Hypersomnia, unspecified; G47.9 Sleep disorder, unspecified | CPT/HCPCS: 95810 ==

== ENCOUNTER → 2024-06-16 22:32 | Outpatient (BNV) | payer BC, MEDICAID, SELFPAY | PROVIDERS: Visit Provider Psychiatry & Neurology Neurology | DX: G47.33 Obstructive sleep apnea (adult) (pediatric) (principal) | CPT/HCPCS: 95810 ==

== ENCOUNTER 2024-08-03 15:29 | Outpatient (AMB) | payer BC, MEDICAID, SELFPAY ==
--- NOTE | 2024-08-03 15:32 | A.OFFVIS_ITS ---
Vital Signs 08/03/24 15:37 BP 110/76 Blood Pressure Location Lt brachial Position Sitting Respiration 16 Pulse 81 Pulse Source Pulse Oximeter Pulse Oximetry (%) 98 Oxygen Delivery Method Room Air Intake Visit Reasons: Botox Intake Note: Pt presents tot he office for Botox injections for chronic migraines. Windows System Admin Required: No Allergies lamotrigine [From Lamictal] Allergy (Severe, Verified 08/03/24 15:33) Rash propranolol Allergy (Severe, Verified 08/03/24 15:33) Rash Sulfa (Sulfonamide Antibiotics) [SULFA(SULFONAMIDE ANTIBIOTICS)] Allergy (Severe, Verified 08/03/24 15:33) HIVES amphetamine [From Adderall] Allergy (Intermediate, Verified 08/03/24 15:33) Rash dextroamphetamine [From Adderall] Allergy (Intermediate, Verified 08/03/24 15:33) Rash latex Allergy (Intermediate, Verified 08/03/24 15:33) Rash aspartame [ASPARTAME] Adverse Reaction (Severe, Verified 08/03/24 15:33) HEADACHE Mryseniy-3-UQ6 Antimigraine Agents Adverse Reaction (Severe, Verified 08/03/24 15:33) Hives nickel Adverse Reaction (Intermediate, Verified 08/03/24 15:33) Rash topiramate [From Topamax] Adverse Reaction (Intermediate, Verified 08/03/24 15:33) Confusion Bensodezapine Allergy (Severe, Uncoded 08/03/24 15:33) Fever valium Allergy (Mild, Uncoded 08/03/24 15:33) Fever Medication List - Last Reconciled 08/03/24 by Octavia Hummel MD amoxicillin 500 mg PO DAILY baclofen 10 mg PO TID 30 days cariprazine (Vraylar) 6 mg PO DAILY cariprazine (Vraylar) 3 caps qd x's 3 days, then 2 caps qd x's 3 days, then 1 cap qd x's 3 days , then stop orally daily; dihydroergotamine (Trudhesa) PRN; 1 actuation in each nostril x1, may repeat dose x1 after 1h Max: 4 actuations/day, 6 actuations/wk; 4 weeks empagliflozin (Jardiance) 25 mg PO DAILY flash glucose sensor ([employer] 14 Day Sensor kit) As directed gabapentin 200 mg (2 x 100 mg) PO DAILY 30 days hydroxyzine HCl 100 mg PO DAILY insulin lispro (Humalog KwikPen U-200 Insulin) 1 sliding scale dose subcut USEASDIRECTD insulin NPH isoph U-100 human (Novolin N FlexPen) 20 units subcut QAM levonorgestrel (Liletta) 19.5 mcg intrauterine ONCE lisdexamfetamine (Vyvanse) 40 mg PO DAILY lithium carbonate ER 300 mg PO BEDTIME melatonin mg PO metformin 1,000 mg PO BID onabotulinumtoxinA 200 units subcut ONCE rabeprazole (AcipHex) 20 mg PO DAILY rimegepant (Nurtec ODT) 75 mg PO Q OTHER DAY 30 days rosuvastatin 5 mg PO DAILY HPI Comments Details: ? 39y/o female comes for treatment of migraines with botox. How many migraine days prior to botox 20 migraine days a month How long do the migraines last 24-days Intensity of gubngarn10/10 ER visits related to migraine1-2 /year Effectiveness of botox from last two treatment(s) How many migraine days since receiving treatment: Change? in intensity of migraine? 0-1/month Change in frequency of migraine?decreased Change in use of acute medication for migraine?decreased Change in quality of life?good ER visits related to migraine?none Have at least three months elapsed since last treatment (Last botox date - frequency of injections) 05/02 SInce being on botox and nurtec 75mg qod her headache days have decreased from 15 days per month to 0-1 headaches days a month ??? Most frequent reported adverse reactions following injection of botox for chronic migraine include neck pain (9%), headache(5%), eyelid ptosis(4%), migraine(4%), muscular weakness(4%), musculuskeletal stiffness(4%), bronchitis(3%), injection site pain (3%), musculoskeletal pain(3%), myalgia(3%), facial paresis(2%), HTN(2%) and muscle spasms(2%) were discussed in detail. ??? Botulinum toxin typeA 200units Lot no [id number] expiration Oct 2026 was diluted with 4 cc of normal saline . ??? Muscles injected- ??? Frontalis 4 sites ??? Procerus 1 site ??? Delivery Department Supervisor- 2 sites ??? Temporalis- 8 sites ??? Occipitalis- 6 sites ??? Cervical paraspinals- 4 sites ??? Trapezius- 6 sites- 10 units each ??? 5 units each in 31 site ??? Total use- 185units ??? Discarded-15units She did not tolerate ubrelvy , doing well with nurtec . she is allergic to triptans - sumatriptan, rizatriptan, almotriptan. she used trudhesa which helped her breakhrough pain.Nurtec helps with breakthrough headaches. 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 Substance Use Type: Marijuana Physical Exam Vital Signs: Last Vital Signs Pulse 81 08/03/24 15:37 Resp 16 08/03/24 15:37 BP 110/76 08/03/24 15:37 Pulse Ox 98 08/03/24 15:37 Oxygen Delivery Method Room Air 08/03/24 15:37 Const General: cooperative and no acute distress Orientation/consciousness: patient oriented x3 Resp Effort & Inspection: normal respiratory effort and able to speak in complete sentences Neuro General: patient oriented x3 Cranial nerves: Yes CN's II-XII intact bilaterally Cognition (Neuro): normal cognition Psych Appearance: grossly normal Mental Status: mental status grossly normal Speech and movement: Normal speech and movement present Affect: normal affect Attitude: cooperative Office Procedures Botulinum toxin Injection 23432 - Migraine Procedure code (CPT) selection complete Office Meds onabotulinumtoxinA 200 unit solution for injection Performing Provider: Octavia Hummel MD Performing Location: [facility] Administered by: Octavia Hummel MD on 08/03/24 15:56 Dose Route Admin Location Dispensed Lot Number Expiration Date NDC Substance Addiction Coordinator 185 unit subcut 200 units [id number] 10/09/26 [id number] ALLERGAN/BOTOX Assessment & Plan Assessment & Plan (1) Migraine with aura, intractable, without status migrainosus: Code(s): G43.119 - Migraine with aura, intractable, without status migrainosus Category: Medical (2) Chronic migraine without aura: Code(s): G43.709 - Chronic migraine without aura, not intractable, without status migrainosus Category: Medical Qualifiers: Status migrainosus presence: without status migrainosus Intractability: intractable Qualified Code(s): G43.719 - Chronic migraine without aura, intractable, without status migrainosus Plan Patient tolerated the procedure well she will call with any side effects Patient s headache frequency has decreased to 0-1 migraine/month. Continue Gabapentin 900mg qam. Continue Baclofen 10mg- 1-3 x's per day. nurtec 75mg as needed for better control of migraines- Patient is allergic to triptans and did not respond to ubrelvy Orders: Orders AMB Botulinum toxin Injection - Patient Supplied Today G43.719 - Chronic migraine without aura, intractable, without status migrainosus Medications: New onabotulinumtoxinA 200 units subcut ONCE 1 ea 0RF G43.719 - Chronic migraine without aura, intractable, without status migrainosus Coding Level of Care Code Est Pt Level 1 (12683) Diagnoses Migraine with aura, intractable, without status migrainosus G43.119 Intractable chronic migraine without aura and without status migrainosus G43.719 Status migrainosus presence: without status migrainosus Intractability: intractable CPT Codes Botox Injection - Botox 3: 66554 - Migraine ([id number])
[2024-08-03 15:37] VITALS: BP 110/76; PULSE 81; RESP 16; O2SAT 98
== END 2024-08-03 15:51 | disposition home or self-care (01) ==
PROVIDERS: PCP Nurse Practitioner Family; Visit Provider Psychiatry & Neurology Neurology
DX: G43.E19 Chronic migraine with aura, intractable, without status migrainosus (principal)
CPT/HCPCS: 64615

== ENCOUNTER → 2024-08-03 15:29 | Outpatient (BNVA) | payer BC, MEDICAID, SELFPAY | PROVIDERS: PCP Nurse Practitioner Family; Visit Provider Psychiatry & Neurology Neurology | DX: G43.E19 Chronic migraine with aura, intractable, without status migrainosus (principal) | CPT/HCPCS: 64615; 99211; J0585 ==

== ENCOUNTER 2024-10-19 13:44 | Outpatient (AMB) | payer BC, MEDICAID, SELFPAY ==
--- NOTE | 2024-10-19 13:52 | MHC.OFFVIS ---
Vital Signs 10/19/24 14:06 Height 5 ft 6 in Weight 233 lb 2 oz BMI 37.6 BP 106/80 Blood Pressure Location Rt brachial Position Sitting Pulse 75 Pulse Source Pulse Oximeter Pulse Oximetry (%) 98 Oxygen Delivery Method Room Air Intake Visit Reasons: 7 MONTH F/U Volunteer Services Specialist Required: No Accompanied by: Self / Same As Patient Allergies lamotrigine [From Lamictal] Allergy (Severe, Verified 10/19/24 14:07) Rash propranolol Allergy (Severe, Verified 10/19/24 14:07) Rash Sulfa (Sulfonamide Antibiotics) [SULFA(SULFONAMIDE ANTIBIOTICS)] Allergy (Severe, Verified 10/19/24 14:07) HIVES amphetamine [From Adderall] Allergy (Intermediate, Verified 10/19/24 14:07) Rash dextroamphetamine [From Adderall] Allergy (Intermediate, Verified 10/19/24 14:07) Rash latex Allergy (Intermediate, Verified 10/19/24 14:07) Rash aspartame [ASPARTAME] Adverse Reaction (Severe, Verified 10/19/24 14:07) HEADACHE [id number] Antimigraine Agents Adverse Reaction (Severe, Verified 10/19/24 14:07) Hives nickel Adverse Reaction (Intermediate, Verified 10/19/24 14:07) Rash topiramate [From Topamax] Adverse Reaction (Intermediate, Verified 10/19/24 14:07) Confusion Bensodezapine Allergy (Severe, Uncoded 08/03/24 15:33) Fever valium Allergy (Mild, Uncoded 08/03/24 15:33) Fever Medication List - Last Reconciled 10/19/24 by MIAH Ceja amoxicillin 500 mg PO DAILY baclofen 10 mg PO TID 30 days cariprazine (Vraylar) 6 mg PO DAILY cariprazine (Vraylar) 3 caps qd x's 3 days, then 2 caps qd x's 3 days, then 1 cap qd x's 3 days , then stop orally daily; dihydroergotamine (Trudhesa) PRN; 1 actuation in each nostril x1, may repeat dose x1 after 1h Max: 4 actuations/day, 6 actuations/wk; 4 weeks flash glucose sensor ([employer] Monica 14 Day Sensor kit) As directed gabapentin 200 mg (2 x 100 mg) PO DAILY 30 days hydroxyzine HCl 100 mg PO DAILY insulin lispro (Humalog KwikPen U-200 Insulin) 1 sliding scale dose subcut USEASDIRECTD insulin NPH isoph U-100 human (Novolin N FlexPen) 20 units subcut QAM levonorgestrel (Liletta) 19.5 mcg intrauterine ONCE lisdexamfetamine (Vyvanse) 40 mg PO DAILY lithium carbonate ER 300 mg PO BEDTIME melatonin mg PO metformin 1,000 mg PO BID onabotulinumtoxinA 200 units subcut ONCE rabeprazole (AcipHex) 20 mg PO DAILY rimegepant (Nurtec ODT) 75 mg PO Q OTHER DAY 30 days rosuvastatin 5 mg PO DAILY Do you need a note to return to daycare/school/sports/work: No HPI Comments Details: 39-yr-old female presents for f/u visit for sleep difficulties. Since the last visit, patient underwent LP to evaluate CSF for signs of inflammatory process and CSF Orexin and level, results of which were within normal limits. 05/06/24 11:25 CSF Tube Number 4 CSF Volume 3.0 CSF Appearance CLEAR CSF Color COLORLESS CSF WBC 0 CSF RBC 0 CSF Appearance (b) Clear, Colorless CSF Glucose 88 CSF Total Protein 37.1 CSF Albumin 18.0 CSF IgG Index 0.53 CSF IgG Synthesis Rate -1.4 CSF Oligoclonal Bands Absent CSF/Serum IgG Index 1.5 CSF Orexin 336 pg/mL- Normal Thus patient was advised to undergo follow-up in-lab PSG with MSLT. Patient underwent in-lab sleep study on 06/16/2024, which showed mild obstructive sleep apnea with AHI 7 per hour and REM AHI of 13 per hour, O2 melissa 87%, all sleep apneas occurred in supine sleep position. She did have PLMS index of 9.5 per hour with a PLMS arousal index of 5.1 per hour. Thus, MSLT was deferred, pending patient is starting APAP therapy. Patient did decline to trial a PAP therapy. She states she typically sleeps on her side. Her limb movements at night are much better when she takes magnesium regularly, and unfortunately she had to hold that prior to the in-lab PSG with MSLT study. Sense, patient reports she stopped Trulicity, after she was realized that this might be contributing to her GI and sleep s/s. She is now managing her diabetes with insulin and Lantus. She has an appointment coming up with endocrinology to discuss an insulin pump. Since stopping the Trulicity, she has stopped having her previous narcolepsy type symptoms, she is no longer having drop attacks, excessive daytime sleepiness. She is also having less GI symptoms, she is able to eat better now, she is having decreased acid reflux. She states her most recent endoscopy showed resolution of Chong's esophagus. She does endorse that can still have some daytime sleepiness in the evening around 7pm- if she sitting down on the couch after dinner. She wakes up around 5am. She has also resumed a strength training and running program. She is now seeing a personal driver- at [employer]. She used to run regularly. She is feeling stronger overall. She has had a weird nerve twitch from right upper frontal into right lower frontal region, occurring every hour so, which started a few days after seeing her chiropractor. Regarding her migraine, she has not had such a severe attack that she has needed to use her p.r.n.Trudhesa order. She states her current regimen of Botox in Nurtec her usually sufficient. Occasionally may adjunct with the Tylenol. She notes that it has not been delivered in a few months, but she does have plenty at home for now. 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 Substance Use Type: Marijuana Physical Exam Vital Signs: Last Vital Signs Pulse 75 10/19/24 14:06 BP 106/80 10/19/24 14:06 Pulse Ox 98 10/19/24 14:06 Oxygen Delivery Method Room Air 10/19/24 14:06 BMI result Body Mass Index 37.6 Const General: cooperative and no acute distress Orientation/consciousness: patient oriented x3 Resp Effort & Inspection: normal respiratory effort and able to speak in complete sentences Neuro Other: No palpable scalp tenderness, No palpable scalp masses, lesions, warmth, induration General: patient oriented x3 Cranial nerves: Yes CN's II-XII intact bilaterally Cognition (Neuro): normal cognition Psych Appearance: grossly normal Mental Status: mental status grossly normal Speech and movement: Normal speech and movement present Affect: normal affect Attitude: cooperative Assessment & Plan Assessment & Plan (1) Chronic migraine without aura: Code(s): G43.709 - Chronic migraine without aura, not intractable, without status migrainosus Category: Medical Qualifiers: Status migrainosus presence: without status migrainosus Intractability: intractable Qualified Code(s): G43.719 - Chronic migraine without aura, intractable, without status migrainosus (2) Periodic limb movements of sleep: Code(s): G47.61 - Periodic limb movement disorder Category: Medical (3) Mild obstructive sleep apnea: Code(s): G47.33 - Obstructive sleep apnea (adult) (pediatric) Category: Medical Plan Patient's constellation of marked hypersomnia and weakness, have improved substantially since patient stopped Trulicity. Reviewed interval LP, CSF studies, Orexin levels: Within normal limits. Reviewed in-lab sleep study, which showed mild sleep apnea. Patient has opted for conservative treatment. Patient advised to continue to avoid sleeping in a supine position. Continue to optimize lifestyle choices, including regular physical activity and making healthy food choices. Patient commended for her strides in these measures. Per recent onset of right frontal paresthesia: Trial ice packs times 20 minutes as needed. May trial OTC lidocaine spray or ointment as needed. Increase cervical range of motion and stretching exercises. Continue current chronic migraine preventative treatment plan as patient is having good clinical effect from use: Continue Botox 155-200 units IM every 12 weeks. Continue Gabapentin 900mg qam. Continue Baclofen 10mg- 1-3 x's per day. Nurtec 75mg every other day, as patient has improved control of migraines while on both Botox and scheduled Nurtec. Trudhesa p.r.n. severe or status migraine attack Previous acute migraine treatment trials: Patient is allergic to triptans. Ubrelvy- ineffective Pt to follow-up in 6 months or sooner prn. Coding Level of Care Code Est Pt Level 4 (68701) Diagnoses Intractable chronic migraine without aura and without status migrainosus G43.719 Status migrainosus presence: without status migrainosus Intractability: intractable Periodic limb movements of sleep G47.61 Mild obstructive sleep apnea G47.33
[2024-10-19 14:06] VITALS: BP 106/80; PULSE 75; O2SAT 98; BMI 37.6
== END 2024-10-19 14:55 | disposition home or self-care (01) ==
PROVIDERS: PCP Nurse Practitioner Family; Visit Provider Nurse Practitioner Family
DX: G43.719 Chronic migraine without aura, intractable, without status migrainosus (principal); G47.61 Periodic limb movement disorder; G47.33 Obstructive sleep apnea (adult) (pediatric)
CPT/HCPCS: 99214

== ENCOUNTER → 2024-10-19 13:44 | Outpatient (BNVA) | payer BC, MEDICAID, SELFPAY | PROVIDERS: PCP Nurse Practitioner Family; Visit Provider Nurse Practitioner Family ==

== ENCOUNTER 2024-11-22 15:07 | Outpatient (AMB) | payer BC, MEDICAID, SELFPAY ==
--- NOTE | 2024-11-22 15:06 | A.OFFVIS_ITS ---
Intake Visit Reasons: Botox-LVM TO R/S Intake Note: Patient presents for botox injection Allergies lamotrigine [From Lamictal] Allergy (Severe, Verified 11/22/24 15:06) Rash propranolol Allergy (Severe, Verified 11/22/24 15:06) Rash Sulfa (Sulfonamide Antibiotics) [SULFA(SULFONAMIDE ANTIBIOTICS)] Allergy (Severe, Verified 11/22/24 15:06) HIVES amphetamine [From Adderall] Allergy (Intermediate, Verified 11/22/24 15:06) Rash dextroamphetamine [From Adderall] Allergy (Intermediate, Verified 11/22/24 15:06) Rash latex Allergy (Intermediate, Verified 11/22/24 15:06) Rash aspartame [ASPARTAME] Adverse Reaction (Severe, Verified 11/22/24 15:06) HEADACHE [id number] Antimigraine Agents Adverse Reaction (Severe, Verified 11/22/24 15:06) Hives nickel Adverse Reaction (Intermediate, Verified 11/22/24 15:06) Rash topiramate [From Topamax] Adverse Reaction (Intermediate, Verified 11/22/24 15:06) Confusion Bensodezapine Allergy (Severe, Uncoded 11/22/24 15:06) Fever valium Allergy (Mild, Uncoded 11/22/24 15:06) Fever HPI Comments Details: ? 39y/o female comes for treatment of migraines with botox. How many migraine days prior to botox 20 migraine days a month How long do the migraines last 24-days Intensity of /10 ER visits related to migraine1-2 /year Effectiveness of botox from last two treatment(s) How many migraine days since receiving treatment: Change? in intensity of migraine? 0-1/month Change in frequency of migraine?decreased Change in use of acute medication for migraine?decreased Change in quality of life?good ER visits related to migraine?none Have at least three months elapsed since last treatment (Last botox date - frequency of injections) 3 months SInce being on botox and nurtec 75mg qod her headache days have decreased from 15 days per month to 0-1 headaches days a month ??? Most frequent reported adverse reactions following injection of botox for chronic migraine include neck pain (9%), headache(5%), eyelid ptosis(4%), migraine(4%), muscular weakness(4%), musculuskeletal stiffness(4%), bronchitis(3%), injection site pain (3%), musculoskeletal pain(3%), myalgia(3%), facial paresis(2%), HTN(2%) and muscle spasms(2%) were discussed in detail. ??? Botulinum toxin typeA 200units Lot no [id number] expiration January 2027 was diluted with 4 cc of normal saline . ??? Muscles injected- ??? Frontalis 4 sites ??? Procerus 1 site ??? Software Release Engineer- 2 sites ??? Temporalis- 8 sites ??? Occipitalis- 6 sites ??? Cervical paraspinals- 4 sites ??? Trapezius- 6 sites- 10 units each ??? 5 units each in 31 site ??? Total use- 185units ??? Discarded-15units She did not tolerate ubrelvy , doing well with nurtec . she is allergic to triptans - sumatriptan, rizatriptan, almotriptan. she used trudhesa which helped her breakhrough pain.Nurtec helps with breakthrough headaches. 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 Substance Use Type: Marijuana Physical Exam Const General: cooperative and no acute distress Orientation/consciousness: patient oriented x3 Resp Effort & Inspection: normal respiratory effort and able to speak in complete sentences Neuro General: patient oriented x3 Cranial nerves: Yes CN's II-XII intact bilaterally Cognition (Neuro): normal cognition Psych Appearance: grossly normal Mental Status: mental status grossly normal Speech and movement: Normal speech and movement present Affect: normal affect Attitude: cooperative Office Procedures Botulinum toxin Injection 25828 - Migraine Procedure code (CPT) selection complete Office Meds onabotulinumtoxinA 200 unit solution for injection Performing Provider: Octavia Hummel MD [place] [facility] [place] [facility] Administered by: Octavia Hummel MD on 11/22/24 15:37 Dose Route Admin Location Dispensed Lot Number Expiration Date [facility] Human Services Worker 185 unit subcut 200 units [id number] ALLERGAN/BOTOX Comments: see hpi Assessment & Plan Assessment & Plan (1) Migraine with aura, intractable, without status migrainosus: Code(s): G43.119 - Migraine with aura, intractable, without status migrainosus Category: Medical (2) Chronic migraine without aura: Code(s): G43.709 - Chronic migraine without aura, not intractable, without status migrainosus Category: Medical Qualifiers: Status migrainosus presence: without status migrainosus Intractability: intractable Qualified Code(s): G43.719 - Chronic migraine without aura, intractable, without status migrainosus Plan Patient tolerated the procedure well she will call with any side effects Patient s headache frequency has decreased to 0-1 migraine/month. Continue Gabapentin 900mg qam. Continue Baclofen 10mg- 1-3 x's per day. nurtec 75mg as needed for better control of migraines- Patient is allergic to triptans and did not respond to ubrelvy Orders: Orders AMB Botulinum toxin Injection Today G43.719 - Chronic migraine without aura, intractable, without status migrainosus Medications: New onabotulinumtoxinA 200 units subcut ONCE 1 ea 0RF migraine G43.719 - Chronic migraine without aura, intractable, without status migrainosus Coding Level of Care Code Est Pt Level 1 (93053) Diagnoses Migraine with aura, intractable, without status migrainosus G43.119 Intractable chronic migraine without aura and without status migrainosus G43.719 Status migrainosus presence: without status migrainosus Intractability: intractable CPT Codes Botox Injection - Botox 3: 67464 - Migraine ([id number])
== END 2024-11-22 15:36 | disposition home or self-care (01) ==
PROVIDERS: PCP Nurse Practitioner Family; Visit Provider Psychiatry & Neurology Neurology
DX: G43.719 Chronic migraine without aura, intractable, without status migrainosus (principal)
CPT/HCPCS: 64615

== ENCOUNTER → 2024-11-22 15:07 | Outpatient (BNVA) | payer BC, MEDICAID, SELFPAY | PROVIDERS: PCP Nurse Practitioner Family; Visit Provider Psychiatry & Neurology Neurology | DX: G43.E19 Chronic migraine with aura, intractable, without status migrainosus (principal) | CPT/HCPCS: 64615; 99211; J0585 ==

== ENCOUNTER 2025-02-21 15:31 | Outpatient (AMB) | payer BC, MEDICAID, SELFPAY ==
[2025-02-21 15:34] VITALS: BMI 40.0
--- NOTE | 2025-02-21 15:34 | MHC.OFFVIS ---
Vital Signs 02/21/25 15:34 Height 5 ft 6 in Weight 248 lb BMI 40.0 Intake Visit Reasons: Botox Intake Note: Patient presents for botox injection.pharmacy supplied Allergies lamotrigine [From Lamictal] Allergy (Severe, Verified 02/21/25 15:35) Rash propranolol Allergy (Severe, Verified 02/21/25 15:35) Rash Sulfa (Sulfonamide Antibiotics) [SULFA(SULFONAMIDE ANTIBIOTICS)] Allergy (Severe, Verified 02/21/25 15:35) HIVES amphetamine [From Adderall] Allergy (Intermediate, Verified 02/21/25 15:35) Rash dextroamphetamine [From Adderall] Allergy (Intermediate, Verified 02/21/25 15:35) Rash latex Allergy (Intermediate, Verified 02/21/25 15:35) Rash aspartame [ASPARTAME] Adverse Reaction (Severe, Verified 02/21/25 15:35) HEADACHE [id number] Antimigraine Agents Adverse Reaction (Severe, Verified 02/21/25 15:35) Hives nickel Adverse Reaction (Intermediate, Verified 02/21/25 15:35) Rash topiramate [From Topamax] Adverse Reaction (Intermediate, Verified 02/21/25 15:35) Confusion Bensodezapine Allergy (Severe, Uncoded 02/21/25 15:35) Fever valium Allergy (Mild, Uncoded 02/21/25 15:35) Fever Medication List - Last Reconciled 02/21/25 by Octavia Hummel MD amoxicillin 500 mg PO DAILY baclofen 10 mg PO TID 30 days cariprazine (Vraylar) 6 mg PO DAILY cariprazine (Vraylar) 3 caps qd x's 3 days, then 2 caps qd x's 3 days, then 1 cap qd x's 3 days , then stop orally daily; dihydroergotamine (Trudhesa) PRN; 1 actuation in each nostril x1, may repeat dose x1 after 1h Max: 4 actuations/day, 6 actuations/wk; 4 weeks flash glucose sensor ([employer] Monica 14 Day Sensor kit) As directed hydroxyzine HCl 100 mg PO DAILY insulin lispro (Humalog KwikPen U-200 Insulin) 1 sliding scale dose subcut USEASDIRECTD levonorgestrel (Liletta) 19.5 mcg intrauterine ONCE lisdexamfetamine (Vyvanse) 40 mg PO DAILY lithium carbonate ER 300 mg PO BEDTIME magnesium glycinate mg PO melatonin mg PO metformin 1,000 mg PO BID onabotulinumtoxinA 200 units subcut ONCE rabeprazole (AcipHex) 20 mg PO DAILY rimegepant (Nurtec ODT) 75 mg PO Q OTHER DAY 30 days rosuvastatin 5 mg PO DAILY HPI Comments Details: ? 39y/o female comes for treatment of migraines with botox. How many migraine days prior to botox 20 migraine days a month How long do the migraines last 24-days Intensity of rvilaqcr34/10 ER visits related to migraine1-2 /year Effectiveness of botox from last two treatment(s) How many migraine days since receiving treatment: Change? in intensity of migraine? 0-1/month Change in frequency of migraine?decreased Change in use of acute medication for migraine?decreased Change in quality of life?good ER visits related to migraine?none Have at least three months elapsed since last treatment (Last botox date - frequency of injections) 3 months SInce being on botox and nurtec 75mg qod her headache days have decreased from 15 days per month to 0-1 headaches days a month ??? Most frequent reported adverse reactions following injection of botox for chronic migraine include neck pain (9%), headache(5%), eyelid ptosis(4%), migraine(4%), muscular weakness(4%), musculuskeletal stiffness(4%), bronchitis(3%), injection site pain (3%), musculoskeletal pain(3%), myalgia(3%), facial paresis(2%), HTN(2%) and muscle spasms(2%) were discussed in detail. ??? Botulinum toxin typeA 200units Lot no [id number] expiration January 2027 was diluted with 4 cc of normal saline . ??? Muscles injected- ??? Frontalis 4 sites ??? Procerus 1 site ??? Agricultural Produce Washer- 2 sites ??? Temporalis- 8 sites ??? Occipitalis- 6 sites ??? Cervical paraspinals- 4 sites ??? Trapezius- 6 sites- 10 units each ??? 5 units each in 31 site ??? Total use- 185units ??? Discarded-15units She did not tolerate ubrelvy , doing well with nurtec . she is allergic to triptans - sumatriptan, rizatriptan, almotriptan. she used trudhesa which helped her breakhrough pain.Nurtec helps with breakthrough headaches. 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 Substance Use Type: Marijuana Physical Exam Vital Signs: BMI result Body Mass Index 40.0 Const General: cooperative and no acute distress Orientation/consciousness: patient oriented x3 Resp Effort & Inspection: normal respiratory effort and able to speak in complete sentences Neuro General: patient oriented x3 Cranial nerves: Yes CN's II-XII intact bilaterally Cognition (Neuro): normal cognition Psych Appearance: grossly normal Mental Status: mental status grossly normal Speech and movement: Normal speech and movement present Affect: normal affect Attitude: cooperative Office Procedures Botulinum toxin Injection 43881 - Migraine Procedure code (CPT) selection complete Office Meds onabotulinumtoxinA 200 unit solution for injection Performing Provider: Octavia Hummel MD Performing Location: [facility] [place] [facility] Administered by: Octavia Hummel MD on 02/21/25 15:51 Dose Route Admin Location Dispensed Lot Number Expiration Date [facility] Broker Assistant 185 unit subcut 200 units [id number] ALLERGAN/BOTOX Comments: see hpi Assessment & Plan Assessment & Plan (1) Migraine with aura, intractable, without status migrainosus: Code(s): G43.119 - Migraine with aura, intractable, without status migrainosus Category: Medical (2) Chronic migraine without aura: Code(s): G43.709 - Chronic migraine without aura, not intractable, without status migrainosus Category: Medical Qualifiers: Intractability: intractable Status migrainosus presence: without status migrainosus Qualified Code(s): G43.719 - Chronic migraine without aura, intractable, without status migrainosus Plan Patient tolerated the procedure well she will call with any side effects Patient s headache frequency has decreased to 0-1 migraine/month. Continue Gabapentin 900mg qam. Continue Baclofen 10mg- 1-3 x's per day. nurtec 75mg as needed for better control of migraines- Patient is allergic to triptans and did not respond to ubrelvy Orders: Orders AMB Botulinum toxin Injection - Patient Supplied N/C Today G43.719 - Chronic migraine without aura, intractable, without status migrainosus Medications: New onabotulinumtoxinA 200 units subcut ONCE 1 ea 0RF migraine G43.719 - Chronic migraine without aura, intractable, without status migrainosus Coding Level of Care Code Est Pt Level 1 (96047) Diagnoses Migraine with aura, intractable, without status migrainosus G43.119 Intractable chronic migraine without aura and without status migrainosus G43.719 Intractability: intractable Status migrainosus presence: without status migrainosus CPT Codes Botox Injection - Botox 3: 88846 - Migraine ([id number])
== END 2025-02-21 15:56 | disposition home or self-care (01) ==
LOC: HO.HSMS 15:31
PROVIDERS: PCP Nurse Practitioner Family; Visit Provider Psychiatry & Neurology Neurology
DX: G43.719 Chronic migraine without aura, intractable, without status migrainosus (principal)
CPT/HCPCS: 64615

== ENCOUNTER → 2025-02-21 15:31 | Outpatient (BNVA) | payer BC, MEDICAID, SELFPAY | PROVIDERS: PCP Nurse Practitioner Family; Visit Provider Psychiatry & Neurology Neurology | DX: G43.E19 Chronic migraine with aura, intractable, without status migrainosus (principal) | CPT/HCPCS: 64615; 99211; J0585 ==

== ENCOUNTER 2025-04-20 07:59 | Outpatient (AMB) | payer BC, MEDICAID, SELFPAY ==
--- NOTE | 2025-04-20 08:02 | MHC.OFFVIS ---
Vital Signs 04/20/25 08:03 Height 5 ft 6 in Weight 252 lb BMI 40.7 BP 115/72 Blood Pressure Location Rt brachial Position Sitting Pulse 84 Pulse Source Pulse Oximeter Pulse Oximetry (%) 96 Oxygen Delivery Method Room Air Intake Visit Reasons: 6 mo follow up Intake Note: Patient here for a 6mon follow-up. Accompanied by: Self / Same As Patient Allergies lamotrigine [From Lamictal] Allergy (Severe, Verified 04/20/25 08:07) Rash propranolol Allergy (Severe, Verified 04/20/25 08:07) Rash Sulfa (Sulfonamide Antibiotics) [SULFA(SULFONAMIDE ANTIBIOTICS)] Allergy (Severe, Verified 04/20/25 08:07) HIVES amphetamine [From Adderall] Allergy (Intermediate, Verified 04/20/25 08:07) Rash dextroamphetamine [From Adderall] Allergy (Intermediate, Verified 04/20/25 08:07) Rash latex Allergy (Intermediate, Verified 04/20/25 08:07) Rash aspartame [ASPARTAME] Adverse Reaction (Severe, Verified 04/20/25 08:07) HEADACHE Nakbjuan-[id number] Antimigraine Agents Adverse Reaction (Severe, Verified 04/20/25 08:07) Hives nickel Adverse Reaction (Intermediate, Verified 04/20/25 08:07) Rash topiramate [From Topamax] Adverse Reaction (Intermediate, Verified 04/20/25 08:07) Confusion Bensodezapine Allergy (Severe, Uncoded 02/21/25 15:35) Fever valium Allergy (Mild, Uncoded 02/21/25 15:35) Fever Medication List - Last Reconciled 04/20/25 by MIAH Ceja amoxicillin 500 mg PO DAILY baclofen 10 mg PO TID 30 days cariprazine (Vraylar) 6 mg PO DAILY cariprazine (Vraylar) 3 caps qd x's 3 days, then 2 caps qd x's 3 days, then 1 cap qd x's 3 days , then stop orally daily; dihydroergotamine (Trudhesa) PRN; 1 actuation in each nostril x1, may repeat dose x1 after 1h Max: 4 actuations/day, 6 actuations/wk; 4 weeks flash glucose sensor ([place] Monica 14 Day Sensor kit) As directed gabapentin 100 - 300 mg (1 - 3 x 100 mg) PO BEDTIME 30 days hydroxyzine HCl 100 mg PO DAILY insulin lispro (Humalog KwikPen U-200 Insulin) 1 sliding scale dose subcut USEASDIRECTD levonorgestrel (Liletta) 19.5 mcg intrauterine ONCE lisdexamfetamine (Vyvanse) 40 mg PO DAILY lithium carbonate ER 300 mg PO BEDTIME magnesium glycinate mg PO melatonin mg PO metformin 1,000 mg PO BID onabotulinumtoxinA 200 units subcut ONCE rabeprazole (AcipHex) 20 mg PO DAILY rimegepant (Nurtec ODT) 75 mg PO Q OTHER DAY 30 days rosuvastatin 5 mg PO DAILY Do you need a note to return to daycare/school/sports/work: No HPI Comments Details: 40-yr-old female presents for f/u visit for sleep difficulties and headaches. Pt denies any significant interval medical history changes. She is being scheduled for genetic testing for ? of hypermobility d/t life long hypermobility, congential cardaic disease, veins roll during blood draws. She is able to lift 175 lbs. Pt reports she has had a few flare-ups of the CRPS pain since the last visit, and requested a refill of the Gabapentin. Which she is using as Gabapentin 200mg sparingingly as needed, which does take the edge off the pain. Her daytime sleepiness and vivid dreams has completely resolved since stopping Trulicity. She states her migraines continue to be better controlled since taking Botox with Nurtec. She is having 1 headache day per month, and no severe migraine attacks. She notes her trudhessa is and needs a refill, as this has been very effective in the past for her more severe migraine. Since the last visit, patient underwent LP to evaluate CSF for signs of inflammatory process and CSF Orexin and level, results of which were within normal limits. 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 Substance Use Type: Marijuana Physical Exam Vital Signs: Last Vital Signs Pulse 84 04/20/25 08:03 BP 115/72 04/20/25 08:03 Pulse Ox 96 04/20/25 08:03 Oxygen Delivery Method Room Air 04/20/25 08:03 BMI result Body Mass Index 40.7 Const General: cooperative and no acute distress Orientation/consciousness: patient oriented x3 Resp Effort & Inspection: normal respiratory effort and able to speak in complete sentences Neuro General: patient oriented x3 Cranial nerves: Yes CN's II-XII intact bilaterally Cognition (Neuro): normal cognition Psych Appearance: grossly normal Mental Status: mental status grossly normal Speech and movement: Normal speech and movement present Affect: normal affect Attitude: cooperative Assessment & Plan Assessment & Plan (1) Chronic migraine without aura: Code(s): G43.709 - Chronic migraine without aura, not intractable, without status migrainosus Category: Medical Qualifiers: Status migrainosus presence: without status migrainosus Intractability: intractable Qualified Code(s): G43.719 - Chronic migraine without aura, intractable, without status migrainosus (2) Periodic limb movements of sleep: Code(s): G47.61 - Periodic limb movement disorder Category: Medical (3) Mild obstructive sleep apnea: Code(s): G47.33 - Obstructive sleep apnea (adult) (pediatric) Category: Medical Plan Patient's constellation of marked hypersomnia and weakness, have improved substantially since patient stopped Trulicity and CSF Orexin study was WNL. In-lab sleep study showed mild sleep apnea. Patient has opted for conservative treatment. Patient advised to continue to avoid sleeping in a supine position. Continue to optimize lifestyle choices, including regular physical activity and making healthy food choices. Continue current chronic migraine preventative treatment plan as patient is having good clinical effect from use: Continue Botox 155-200 units IM every 12 weeks. Continue Baclofen 10mg- 1-3 x's per day. Continue Nurtec 75mg every other day, as patient has improved control of migraines while on both Botox and scheduled Nurtec. Continue Trudhesa p.r.n. severe or status migraine attack- as this is very effective. Previous acute migraine treatment trials: Patient is allergic to triptans. Ubrelvy- ineffective For Chronic Regional Pain Syndrome: Continue Gabapentin 100mg cap- 1-3 caps qd prn. Pt to follow-up in 6 months or sooner prn. Medications: Refilled dihydroergotamine (Trudhesa) PRN; 1 actuation in each nostril x1, may repeat dose x1 after 1h Max: 4 actuations/day, 6 actuations/wk; 4 weeks 4 mL 6RF migraine headache G43.119 - Migraine with aura, intractable, without status migrainosus baclofen 10 mg PO TID 30 days 90 tabs 6RF Coding Level of Care Code Est Pt Level 4 (31227) Diagnoses Intractable chronic migraine without aura and without status migrainosus G43.719 Status migrainosus presence: without status migrainosus Intractability: intractable Periodic limb movements of sleep G47.61 Mild obstructive sleep apnea G47.33
[2025-04-20 08:03] VITALS: BP 115/72; PULSE 84; O2SAT 96; BMI 40.7
== END 2025-04-20 09:09 | disposition home or self-care (01) ==
LOC: HO.HSMS 07:59
PROVIDERS: PCP Nurse Practitioner Family; Visit Provider Nurse Practitioner Family
DX: G43.719 Chronic migraine without aura, intractable, without status migrainosus (principal); G47.61 Periodic limb movement disorder; G47.33 Obstructive sleep apnea (adult) (pediatric)
CPT/HCPCS: 99214

== ENCOUNTER → 2025-04-20 07:59 | Outpatient (BNVA) | payer BC, MEDICAID, SELFPAY | PROVIDERS: PCP Nurse Practitioner Family; Visit Provider Nurse Practitioner Family ==

== ENCOUNTER 2025-05-23 14:42 | Outpatient (AMB) | payer BC, MEDICAID, SELFPAY ==
--- NOTE | 2025-05-23 14:42 | A.OFFVIS_ITS ---
Vital Signs 05/23/25 14:43 Height 5 ft 6 in Weight 251 lb BMI 40.5 BP 120/62 Blood Pressure Location Lt brachial Position Sitting Pulse 91 Pulse Source Pulse Oximeter Pulse Oximetry (%) 99 Oxygen Delivery Method Room Air Intake Visit Reasons: Botox-LVM TO R/S Intake Note: Patient presents for botox injection. patient supplied Craniologist Required: No Accompanied by: Self / Same As Patient Allergies lamotrigine (From Lamictal) Allergy (Severe, Verified 05/23/25 14:47) Rash propranolol Allergy (Severe, Verified 05/23/25 14:47) Rash Sulfa (Sulfonamide Antibiotics) (SULFA(SULFONAMIDE ANTIBIOTICS)) Allergy (Severe, Verified 05/23/25 14:47) HIVES amphetamine (From Adderall) Allergy (Intermediate, Verified 05/23/25 14:47) Rash dextroamphetamine (From Adderall) Allergy (Intermediate, Verified 05/23/25 14:47) Rash latex Allergy (Intermediate, Verified 05/23/25 14:47) Rash aspartame (ASPARTAME) Adverse Reaction (Severe, Verified 05/23/25 14:47) HEADACHE [id number]-[id number] Antimigraine Agents Adverse Reaction (Severe, Verified 05/23/25 14:47) Hives nickel Adverse Reaction (Intermediate, Verified 05/23/25 14:47) Rash topiramate (From Topamax) Adverse Reaction (Intermediate, Verified 05/23/25 14:47) Confusion Bensodezapine Allergy (Severe, Uncoded 02/21/25 15:35) Fever valium Allergy (Mild, Uncoded 02/21/25 15:35) Fever Medication List - Last Reconciled 05/23/25 by Octavia Hummel MD amoxicillin 500 mg PO DAILY baclofen 10 mg PO TID 30 days cariprazine (Vraylar) 6 mg PO DAILY cariprazine (Vraylar) 3 caps qd x's 3 days, then 2 caps qd x's 3 days, then 1 cap qd x's 3 days , then stop orally daily; dihydroergotamine (Trudhesa) PRN; 1 actuation in each nostril x1, may repeat dose x1 after 1h Max: 4 actuations/day, 6 actuations/wk; 4 weeks doxycycline hyclate 100 mg PO DAILY flash glucose sensor ([employer] Monica 14 Day Sensor kit) As directed gabapentin 100 - 300 mg (1 - 3 x 100 mg) PO BEDTIME 30 days hydroxyzine HCl 100 mg PO DAILY insulin lispro (Humalog KwikPen U-200 Insulin) 1 sliding scale dose subcut USEASDIRECTD levonorgestrel (Liletta) 19.5 mcg intrauterine ONCE lisdexamfetamine (Vyvanse) 40 mg PO DAILY lithium carbonate ER 300 mg PO BEDTIME magnesium glycinate mg PO melatonin mg PO metformin 1,000 mg PO BID onabotulinumtoxinA 200 units subcut ONCE rabeprazole (AcipHex) 20 mg PO DAILY rimegepant (Nurtec ODT) 75 mg PO Q OTHER DAY 30 days rosuvastatin 5 mg PO DAILY HPI Comments Details: ? 40y/o female comes for treatment of migraines with botox. How many migraine days prior to botox 20 migraine days a month How long do the migraines last 24-days Intensity of tlpnhtad11/10 ER visits related to migraine1-2 /year Effectiveness of botox from last two treatment(s) How many migraine days since receiving treatment: Change? in intensity of migraine? 0-1/month Change in frequency of migraine?decreased Change in use of acute medication for migraine?decreased Change in quality of life?good ER visits related to migraine?none Have at least three months elapsed since last treatment (Last botox date - frequency of injections) 3 months SInce being on botox and nurtec 75mg qod her headache days have decreased from 15 days per month to 0-1 headaches days a month ??? Most frequent reported adverse reactions following injection of botox for chronic migraine include neck pain (9%), headache(5%), eyelid ptosis(4%), migraine(4%), muscular weakness(4%), musculuskeletal stiffness(4%), bronchitis(3%), injection site pain (3%), musculoskeletal pain(3%), myalgia(3%), facial paresis(2%), HTN(2%) and muscle spasms(2%) were discussed in detail. ??? Botulinum toxin typeA 200units Lot no [id number] expiration August 2027 was diluted with 4 cc of normal saline . ??? Muscles injected- ??? Frontalis 4 sites ??? Procerus 1 site ??? [employer]- 2 sites ??? Temporalis- 8 sites ??? Occipitalis- 6 sites ??? Cervical paraspinals- 4 sites ??? Trapezius- 6 sites- 10 units each ??? 5 units each in 31 site ??? Total use- 185units ??? Discarded-15units She did not tolerate ubrelvy , doing well with nurtec . she is allergic to triptans - sumatriptan, rizatriptan, almotriptan. she used trudhesa which helped her breakhrough pain.Nurtec helps with breakthrough headaches. 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 Substance Use Type: Marijuana Physical Exam Vital Signs: Last Vital Signs Pulse 91 05/23/25 14:43 BP 120/62 05/23/25 14:43 Pulse Ox 99 05/23/25 14:43 Oxygen Delivery Method Room Air 05/23/25 14:43 BMI result Body Mass Index 40.5 Const General: cooperative and no acute distress Orientation/consciousness: patient oriented x3 Resp Effort & Inspection: normal respiratory effort and able to speak in complete sentences Neuro General: patient oriented x3 Cranial nerves: Yes CN's II-XII intact bilaterally Cognition (Neuro): normal cognition Psych Appearance: grossly normal Mental Status: mental status grossly normal Speech and movement: Normal speech and movement present Affect: normal affect Attitude: cooperative Office Procedures Botulinum toxin Injection 23528 - Migraine Procedure code (CPT) selection complete Office Meds onabotulinumtoxinA 200 unit solution for injection Performing Provider: Octavia Hummel MD Performing Location: [facility] [place], [place] [facility] Administered by: Octavia Hummel MD on 05/23/25 15:13 Dose Route Admin Location Dispensed Lot Number Expiration Date ND [employer] Machine Tender 185 unit subcut 200 units [id number] ALLERGAN /BOTOX 2 Total Dispensed Waste 200 units 7.5 % Comments: see HPI Assessment & Plan Assessment & Plan (1) Migraine with aura, intractable, without status migrainosus: Code(s): G43.119 - Migraine with aura, intractable, without status migrainosus Category: Medical (2) Chronic migraine without aura: Code(s): G43.709 - Chronic migraine without aura, not intractable, without status migrainosus Category: Medical Qualifiers: Status migrainosus presence: without status migrainosus Intractability: intractable Qualified Code(s): G43.719 - Chronic migraine without aura, intractable, without status migrainosus Plan Patient tolerated the procedure well she will call with any side effects Patient s headache frequency has decreased to 0-1 migraine/month. Continue Gabapentin 900mg qam. Continue Baclofen 10mg- 1-3 x's per day. nurtec 75mg as needed for better control of migraines- Patient is allergic to triptans and did not respond to ubrelvy Orders: Orders AMB Botulinum toxin Injection Today G43.719 - Chronic migraine without aura, intractable, without status migrainosus Coding Level of Care Code Est Pt Level 1 (49556) Diagnoses Migraine with aura, intractable, without status migrainosus G43.119 Intractable chronic migraine without aura and without status migrainosus G43.719 Status migrainosus presence: without status migrainosus Intractability: intractable CPT Codes Botox Injection - Botox 3: 57243 - Migraine ([id number])
[2025-05-23 14:43] VITALS: BP 120/62; PULSE 91; O2SAT 99; BMI 40.5
== END 2025-05-23 15:10 | disposition home or self-care (01) ==
LOC: HO.HSMS 14:43
PROVIDERS: PCP Nurse Practitioner Family; Visit Provider Psychiatry & Neurology Neurology
DX: G43.719 Chronic migraine without aura, intractable, without status migrainosus (principal); G43.119 Migraine with aura, intractable, without status migrainosus
CPT/HCPCS: 64615

== ENCOUNTER → 2025-05-23 14:42 | Outpatient (BNVA) | payer BC, MEDICAID, SELFPAY | PROVIDERS: PCP Nurse Practitioner Family; Visit Provider Psychiatry & Neurology Neurology | DX: G43.119 Migraine with aura, intractable, without status migrainosus (principal); G43.719 Chronic migraine without aura, intractable, without status migrainosus | CPT/HCPCS: 64615; 99211; J0585 ==

== ENCOUNTER 2025-08-22 15:08 | Outpatient (AMB) | payer BC, SELFPAY ==
[2025-08-22 15:13] VITALS: BP 122/80; PULSE 73; O2SAT 97; BMI 41.0
--- NOTE | 2025-08-22 15:13 | MHC.OFFVIS ---
Vital Signs 08/22/25 15:13 08/22/25 15:15 Height 5 ft 6 in 5 ft 6 in Weight 254 lb 2 oz BMI 41.0 BP 122/80 Blood Pressure Location Rt brachial Position Sitting Pulse 73 Pulse Source Pulse Oximeter Pulse Oximetry (%) 97 Oxygen Delivery Method Room Air Intake Visit Reasons: 3mon Botox follow-up Intake Note: Botox 200 Pt supplied Bleach Tester Required: No Accompanied by: Self / Same As Patient Allergies lamotrigine (From Lamictal) Allergy (Severe, Verified 08/22/25 15:13) Rash propranolol Allergy (Severe, Verified 08/22/25 15:13) Rash Sulfa (Sulfonamide Antibiotics) (SULFA(SULFONAMIDE ANTIBIOTICS)) Allergy (Severe, Verified 08/22/25 15:13) HIVES amphetamine (From Adderall) Allergy (Intermediate, Verified 08/22/25 15:13) Rash dextroamphetamine (From Adderall) Allergy (Intermediate, Verified 08/22/25 15:13) Rash latex Allergy (Intermediate, Verified 08/22/25 15:13) Rash aspartame (ASPARTAME) Adverse Reaction (Severe, Verified 08/22/25 15:13) HEADACHE [id number]-[id number] Antimigraine Agents Adverse Reaction (Severe, Verified 08/22/25 15:13) Hives nickel Adverse Reaction (Intermediate, Verified 08/22/25 15:13) Rash topiramate (From Topamax) Adverse Reaction (Intermediate, Verified 08/22/25 15:13) Confusion Bensodezapine Allergy (Severe, Uncoded 02/21/25 15:35) Fever valium Allergy (Mild, Uncoded 02/21/25 15:35) Fever Medication List - Last Reconciled 08/22/25 by Octavia Hummel MD alcohol swabs (Alcohol Prep Pads) pad topical amoxicillin 500 mg PO DAILY baclofen 10 mg PO TID 30 days blood-glucose sensor (bead Button G7 Sensor device) As directed cariprazine (Vraylar) 6 mg PO DAILY dihydroergotamine (Trudhesa) PRN; 1 actuation in each nostril x1, may repeat dose x1 after 1h Max: 4 actuations/day, 6 actuations/wk; 4 weeks flash glucose sensor ([employer] Monica 14 Day Sensor kit) As directed gabapentin 100 - 300 mg (1 - 3 x 100 mg) PO BEDTIME 30 days hydroxyzine HCl 100 mg PO DAILY hydroxyzine HCl 100 mg PO DAILY insulin lispro (Humalog KwikPen U-200 Insulin) 1 sliding scale dose subcut USEASDIRECTD insulin pump cart,auto,BT,G6/7 (Omnipod 5 G6-G7 Pods (Gen 5) subcutaneous cartridge) As directed levonorgestrel (Liletta) 19.5 mcg intrauterine ONCE lithium carbonate ER 300 mg PO BEDTIME magnesium glycinate mg PO melatonin mg PO metformin 1,000 mg PO BID onabotulinumtoxinA 200 units subcut ONCE rimegepant (Nurtec ODT) 75 mg PO Q OTHER DAY 30 days rosuvastatin 5 mg PO DAILY HPI Comments Details: ? 40y/o female comes for treatment of migraines with botox. How many migraine days prior to botox 20 migraine days a month How long do the migraines last 24-days Intensity of bawlruhe64/10 ER visits related to migraine1-2 /year Effectiveness of botox from last two treatment(s) How many migraine days since receiving treatment: Change? in intensity of migraine? 0-1/month Change in frequency of migraine?decreased Change in use of acute medication for migraine?decreased Change in quality of life?good ER visits related to migraine?none Have at least three months elapsed since last treatment (Last botox date - frequency of injections) 3 months SInce being on botox and nurtec 75mg qod her headache days have decreased from 15 days per month to 0-1 headaches days a month ??? Most frequent reported adverse reactions following injection of botox for chronic migraine include neck pain (9%), headache(5%), eyelid ptosis(4%), migraine(4%), muscular weakness(4%), musculuskeletal stiffness(4%), bronchitis(3%), injection site pain (3%), musculoskeletal pain(3%), myalgia(3%), facial paresis(2%), HTN(2%) and muscle spasms(2%) were discussed in detail. ??? Botulinum toxin typeA 200units Lot no [id number] expiration Sep 2027 was diluted with 4 cc of normal saline . ??? Muscles injected- ??? Frontalis 4 sites ??? Procerus 1 site ??? Flare Worker- 2 sites ??? Temporalis- 8 sites ??? Occipitalis- 6 sites ??? Cervical paraspinals- 4 sites ??? Trapezius- 6 sites- 10 units each ??? 5 units each in 31 site ??? Total use- 185units ??? Discarded-15units She did not tolerate ubrelvy , doing well with nurtec . she is allergic to triptans - sumatriptan, rizatriptan, almotriptan. she used trudhesa which helped her breakhrough pain.Nurtec helps with breakthrough headaches. 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 Substance Use Type: Marijuana Physical Exam Vital Signs: Last Vital Signs Pulse 73 08/22/25 15:13 BP 122/80 08/22/25 15:13 Pulse Ox 97 08/22/25 15:13 Oxygen Delivery Method Room Air 08/22/25 15:13 BMI result Body Mass Index 41.0 Const General: cooperative and no acute distress Orientation/consciousness: patient oriented x3 Resp Effort & Inspection: normal respiratory effort and able to speak in complete sentences Neuro General: patient oriented x3 Cranial nerves: Yes CN's II-XII intact bilaterally Cognition (Neuro): normal cognition Psych Appearance: grossly normal Mental Status: mental status grossly normal Speech and movement: Normal speech and movement present Affect: normal affect Attitude: cooperative Office Procedures Botulinum toxin Injection 72938 - Migraine Procedure code (CPT) selection complete Office Meds onabotulinumtoxinA 200 unit solution for injection Performing Provider: Octavia Hummel MD Performing Location: [facility] [place] [facility] Administered by: Octavia Hummel MD on 08/22/25 15:40 Dose Route Admin Location Dispensed Lot Number Expiration Date [facility] Credit Risk Analyst 185 unit subcut 200 units [id number] ALLERGAN/BOTOX Total Dispensed Waste 200 units 7.5 % Comments: see hpi Assessment & Plan Assessment & Plan (1) Migraine with aura, intractable, without status migrainosus: Code(s): G43.119 - Migraine with aura, intractable, without status migrainosus Category: Medical (2) Chronic migraine without aura: Code(s): G43.709 - Chronic migraine without aura, not intractable, without status migrainosus Category: Medical Qualifiers: Status migrainosus presence: without status migrainosus Intractability: intractable Qualified Code(s): G43.719 - Chronic migraine without aura, intractable, without status migrainosus Plan Patient tolerated the procedure well she will call with any side effects Patient s headache frequency has decreased to 0-1 migraine/month. Continue Gabapentin 900mg qam. Continue Baclofen 10mg- 1-3 x's per day. nurtec 75mg as needed for better control of migraines- Patient is allergic to triptans and did not respond to ubrelvy Orders: Orders AMB Botulinum toxin Injection - Patient Supplied N/C Today G43.719 - Chronic migraine without aura, intractable, without status migrainosus Coding Level of Care Code Est Pt Level 1 (07582) Diagnoses Migraine with aura, intractable, without status migrainosus G43.119 Intractable chronic migraine without aura and without status migrainosus G43.719 Status migrainosus presence: without status migrainosus Intractability: intractable CPT Codes Botox Injection - Botox 3: 52414 - Migraine ([id number])
--- OUTSIDE RECORDS SUMMARY | 2025-08-22 18:01 | XMS_ITS | Clinical Summary ---
Author Organization [facility] Address [address] [place] [address] Care Team Providers Care Vending Machine Technician Name Role Phone Trevin Lee MD Primary Care Provider [phone] Allergies Active Allergy Reactions Criticality Noted Date Comments Sulfa (Sulfonamide Antibiotics) 07/11 Social History Tobacco Use Types Packs/Day Years Used Date Smoking Tobacco: Never Assessed Comments Unknown Sex and Gender Information Value Date Recorded Sex Assigned at Not on file Legal Sex Female 8:32 PM EDT Gender Identity Not on file Sexual Orientation Not on file Last Filed Vital Signs Vital Sign Reading Time Taken Comments Blood Pressure 125/74 08/02/2017 12:38 AM EDT Pulse 80 08/02/2017 12:38 AM EDT Temperature 36.6 C (97.8 F) 08/02/2017 12:38 AM EDT Respiratory Rate 20 08/02/2017 12:38 AM EDT Oxygen Saturation 100% 08/02/2017 12:38 AM EDT Inhaled Oxygen Concentration - - Weight 99.8 kg (220 lb) 08/01/2017 8:33 PM EDT Height 167.6 cm (5' 6 ) 08/01/2017 8:33 PM EDT Body Mass Index 35.51 08/01/2017 8:33 PM EDT Plan of Treatment Not on file Insurance [facility] Care Teams Vending Machine Technician Relationship Specialty Start Date End Date Trevin Lee MD PCP - General Family Medicine 08/01/17
--- OUTSIDE RECORDS SUMMARY | 2025-08-22 18:01 | XMS_ITS | Clinical Summary ---
Author Organization [facility] Address [address] [employer] [facility] [address] [place] [phone] Phone Care Team Providers Care Dining Services Director Name Role Phone Trevin Lee MD Primary Care Pro vider PinedaSarah neves SALES COACH Unavailable Allergies Active Allergy Reactions Criticality Noted Date Comments Sumatriptan Succinate Flushing 09/17/2017 Sulfa (Sulfonamide Antibiotics) Hives 07/2017 Medications cariprazine (VRAYLAR) 1.5 mg capsule Take 1.5 mg by mouth daily. Active gabapentin (NEURONTIN) 300 MG capsule Take 300 mg by mouth daily. Active baclofen (LIORESAL) 10 MG tablet Take 10 mg by mouth 3 (three) times a day as needed. Active oxyCODONE 5 MG immediate release tablet Take 5 mg by mouth every 4 (four) hours as needed for moderate pain. Active lidocaine (LIDODERM) 5 % Place 1 patch onto the skin daily. Remove & Discard patch within 12 hours or as directed by Active butalbital-acet aminophen-caffe ine (FIORICET, ESGIC) 50-325-40 mg per tablet Take 1 tablet by mouth every 4 (four) hours as needed for pain (specific location in comments). Active Encounters Date Type Department Care Team Description 07/31/2025 Transcribe Orders [facility] [address] [facility], 5th [place] [address] Trevin Lee MD Nausea and vomiting, unspecified vomiting type (Primary Dx) from Last 3 Months Family History Medical History Relation Comments Coronary artery disease Mother Fibromyalgia Mother Psoriasis Neg Hx Relation Status Comments Mother Social History Tobacco Use Types Packs/Day Years Used Date Smoking Tobacco: Former Smokeless Tobacco: Former Education Answer Date Recorded Are you interested in more education? Not on riley e 03/06/2023 Are you concerned about learning? Not on file 03/06/2023 No 03/06/2023 No 03/06/2023 Digital Access Answer Date Recorded No 04/06/2023 No 04/06/2023 No 04/06/2023 Reliable internet access at home? Not on file 04/06/2023 Device with a working camera? Not on file Comments Unknown Sex and Gender Information Value Date Recorded Sex Assigned at Not on file Legal Sex Female 1:36 PM EST Gender Identity Not on file Sexual Orientation Not on file Last Filed Vital Signs Vital Sign Reading Time Taken Comments Blood Pressure 113/71 09/17/2017 12:02 PM EST Pulse 81 09/17/2017 12:02 PM EST Temperature 36.4 C (97.6 F) 09/17/2017 12:02 PM EST Respiratory Rate - - Oxygen Saturation 100% 09/17/2017 12:02 PM EST Inhaled Oxygen Concentration - - Weight 102.5 kg (226 lb) 09/17/2017 12:02 PM EST Height 167.6 cm (5' 6 ) 09/17/2017 12:02 PM EST Body Mass Index 36.48 09/17/2017 12:02 PM EST Plan of Treatment Upcoming Encounters Date Type Department Care Team (Late st Contact Info) Description 12/13/2025 3:00 PM EST Office Visit [facility] [address] [place] [address], [address] [place] [address] Marjorie Hays MD [address] [place] [phone] [email or web address] Health Maintenance Due Date Last Done Comments DEPRESSION SCREENING 1995 SMOKING Hx and SMOKELESS TOBACCO SCREENING 1996 HEPATITIS C SCREENING 2001 HIV ONE-TIME SCREENING (18-65 YEARS) 2001 PAP SMEAR 2004 MAMMOGRAM 2023 INFLUENZA VACCINE (#1) 2025 , 08/26/2019, 08/28/2018, Additional history exists COVID-19 VACCINE ( season) 2025 08/21/2021, 01/25/2021, 01/02/2021 Adult Td,Tdap Booster 06/13/2029 06/13/2019, 014 PNEUMOCOCCAL VACCINES (0-49 years) Aged Out 11/09/2012 No longer eligible based on patient's age to complete this topic HEPATITIS A VACCINES Aged Out No long er eligible based on patient's age to complete this topic HIB VACCINES Aged Out No longer eligi ble based on patient's age to complete this topic MENINGOCOCCAL VACCINES (ACWY) Aged Out No longer eligible based on patient's age to complete this topic MENINGOCOCCAL VACCINES (B) Aged Out N o longer eligible based on patient's age to complete this topic Medical Devices Not on file Procedures Procedure Name Priority Date/Time Associated Diagnosis Comments OUTSIDE PROCEDURE 07/31/2025 from Last 3 Months Results * Outside Procedure (07/31/2025) us Scanning Interface Provider PROCEDURE/MINOR SURG ICAL PERFORMABLES Final Result from Last 3 Months Insurance [facility] PPO EPO PPO EPO PPO EPO PPO EPO PPO EPO PPO EPO PPO EPO PPO EPO PPO EPO Care Teams Dining Services Director Relationship Specialty Start Date End Date Trevin Lee MD [address] [place] [phone] PCP - General Family Medicine 09/15/17 Sarah Pineda, SALES COACH [address] [place] [phone] Family Medicine 12/09/17 Additional Source Comments The information contained in this document represents components of the legal health record. It is not the complete legal health record.[facility]
== END 2025-08-22 15:40 | disposition home or self-care (01) ==
LOC: HO.HSMS 15:09
PROVIDERS: PCP Nurse Practitioner Family; Visit Provider Psychiatry & Neurology Neurology
DX: G43.719 Chronic migraine without aura, intractable, without status migrainosus (principal)
CPT/HCPCS: 64615

== ENCOUNTER → 2025-08-22 15:08 | Outpatient (BNVA) | payer BC, SELFPAY | PROVIDERS: PCP Nurse Practitioner Family; Visit Provider Psychiatry & Neurology Neurology | DX: G43.719 Chronic migraine without aura, intractable, without status migrainosus (principal) | CPT/HCPCS: 64615; 99211; J0585 ==

== ENCOUNTER 2025-10-23 14:25 | Outpatient (AMB) | payer BC, SELFPAY ==
[2025-10-23 14:33] VITALS: BP 100/62; PULSE 75; O2SAT 99; BMI 42.8
--- NOTE | 2025-10-23 14:33 | A.OFFVIS_ITS ---
Vital Signs 10/23/25 14:33 Height 5 ft 6 in Weight 265 lb BMI 42.8 BP 100/62 Blood Pressure Location Lt brachial Position Sitting Pulse 75 Pulse Source Pulse Oximeter Pulse Oximetry (%) 99 Oxygen Delivery Method Room Air Intake Visit Reasons: 6 mo follow up Smoking Pipe Driller And Threader Required: No Accompanied by: Self / Same As Patient Allergies lamotrigine (From Lamictal) Allergy (Severe, Verified 10/23/25 14:37) Rash propranolol Allergy (Severe, Verified 10/23/25 14:37) Rash Sulfa (Sulfonamide Antibiotics) (SULFA(SULFONAMIDE ANTIBIOTICS)) Allergy (Severe, Verified 10/23/25 14:37) HIVES amphetamine (From Adderall) Allergy (Intermediate, Verified 10/23/25 14:37) Rash dextroamphetamine (From Adderall) Allergy (Intermediate, Verified 10/23/25 14:37) Rash latex Allergy (Intermediate, Verified 10/23/25 14:37) Rash aspartame (ASPARTAME) Adverse Reaction (Severe, Verified 10/23/25 14:37) HEADACHE [id number] Antimigraine Agents Adverse Reaction (Severe, Verified 10/23/25 14:37) Hives nickel Adverse Reaction (Intermediate, Verified 10/23/25 14:37) Rash topiramate (From Topamax) Adverse Reaction (Intermediate, Verified 10/23/25 14:3 7) Confusion Bensodezapine Allergy (Severe, Uncoded 10/23/25 14:37) Fever valium Allergy (Mild, Uncoded 10/23/25 14:37) Fever HPI Comments Details: History of Present Illness The patient is a 40 year old female presenting with a follow-up for chronic migraine, chronic regional pain syndrome, sleep difficulties, and also would lik e to discuss symptoms of cyclical vomiting. Chronic Vomiting: - The patient reports a six-year history of daily vomiting, which is cyclic and occurs mostly in the morning. - Previous gastroenterology workup included multiple endoscopies, two gastric emptying studies, and a tilt table test. - Past diagnoses included GERD, Chong's esophagus, and a hernia, all of which reportedly healed after she stopped taking gabapentin regularly. - She has previously been treated with Trulicity, which she discontinued due to vomiting undigested food and stomach pain. - She also stopped Vyvanse due to concerns it was contributing to the vomiting. - Her former GI team suspected cannabinoid hyperemesis syndrome (CHS) due to marijuana use, but the patient notes that hallmark relieving factors like hot showers do not help. - She reports a history of motion sickness as a child. - Current management includes a food elimination diet, such as delaying her morning coffee. - She has an upcoming appointment with a new [employer] so[facility] consultant in [place] in December. Migraine headache: - The patient's headaches have improved, and she has not needed to use her rescue medication, Trudesa, recently. - She occasionally wakes up with a searing headache, which has been successfully managed with Tylenol and gabapentin. - She is on a prophylactic regimen of Nurtec taken every other day. Cervicalgia: - The patient reports intermittent flare-ups of left-sided neck pain. - She manages these flares with gabapentin as needed, typically taking 100 mg for mild burning pain and 200 mg for a full flare, with an occasional third pill for severe episodes. - She continues on Botox for chronic migraine, which is helpful for both conditions Bipolar I Disorder: - The patient has a diagnosis of bipolar I disorder and is currently managed with an antipsychotic medication that serves as a mood stabilizer. 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 - She has not had good results with tricyclic antidepressants in the past, which affected her mood. - She is scheduled to see a new psychiatric provider specializing in bipolar disorder and will have her GeneSight testing updated. Social History - Substance Use: Reports smoking marijuana, approximately one ounce every three weeks, but has been cutting down to assess its effect on her symptoms. - Exercise: The patient is active with heavy weightlifting, including deadlifting up to 185 lbs and aiming to increase to 200 lbs. - Diet and Hydration: She is attempting a food elimination diet and has stopped drinking coffee first thing in the morning, which has helped her GI symptoms. - She reports inconsistent fluid intake, trying to drink one 48-ounce bottle of water daily but sometimes taking three days to finish it. - Weight: She reports a 60-pound weight gain, from 197 lbs to 260 lbs, since discontinuing Trulicity. - Employment: She works as a teacher. - Gynecologic: She has an IUD and has not had a menstrual cycle since 2013. Results - Tests: Previous workup includes a lumbar puncture for CSF orexin level which was normal, two gastric emptying studies, a tilt table test, and multiple endoscopies. - Genetic Testing: GeneSight test was performed in 2018; she plans to have it updated. - Endoscopy: Past findings of Chong's esophagus and a hernia have since resol [place]. 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 - Reports nocturnal limb movements that are improved with baclofen. - History of narcolepsy-like symptoms including visual hallucinations, which have since resolved. - Musculoskeletal: Reports flare-ups of left-sided neck pain with a burning quality. - Gastrointestinal: Reports daily morning vomiting for the past six years. - Reports IBS flares causing either constipation or diarrhea. - Denies relief from abdominal pain with hot showers or capsaicin cream. - Reports never feeling hungry. - Constitutional: Denies significant daytime sleepiness since stopping Vyvanse. - Genitourinary: Denies menses since 2013 due to an IUD. - Reports occasional stress incontinence during heavy weightlifting. - Psychiatric: Reports feeling like she is always in a fight or flight state. Physical Exam Exam Exam: Vital Signs: Last Vital Signs Pulse 75 10/23/25 14:33 BP 100/62 10/23/25 14:33 Pulse Ox 99 10/23/25 14:33 Oxygen Delivery Method Room Air 10/23/25 14:33 BMI result Body Mass Index 42.8 Const General: cooperative and no acute distress Orientation/consciousness: patient oriented x3 Resp Effort & Inspection: normal respiratory effort and able to speak in complete sentences Neuro General: patient oriented x3 Cranial nerves: Yes CN's II-XII intact bilaterally Cognition (Neuro): normal cognition Psych Appearance: grossly normal Mental Status: mental status grossly normal Speech and movement: Normal speech and movement present Affect: normal affect Attitude: cooperative Assessment & Plan Assessment & Plan (1) Chronic migraine without aura: Code(s): G43.709 - Chronic migraine without aura, not intractable, without status migrainosus Category: Medical Qualifiers: Status migrainosus presence: without status migrainosus Intractability: intractable Qualified Code(s): G43.719 - Chronic migraine without aura, intractable, without status migrainosus (2) Spasmodic torticollis: Comment: left laterocollis Code(s): G24.3 - Spasmodic torticollis Category: Medical (3) Cyclical vomiting: Code(s): R11.15 - Cyclical vomiting syndrome unrelated to migraine Category: Medical Plan Discussion Notes I reviewed the patient's ongoing history of chronic daily vomiting, which has been present for six years. We discussed the differential diagnosis, noting that while her former gastroenterology team suspected cannabinoid hyperemesis syndrome, her clinical picture does not fully align with this diagnosis, particularly the lack of relief with hot showers. I explained that her symptoms, including the cyclic morning pattern and history of motion sickness, are more suggestive of cyclic vomiting syndrome (CVS) or potentially mast cell activation syndrome (MCAS), with CVS being more likely. I provided education on potential treatments for CVS that she can discuss with her new [facility] so[facility] consultant in [place]. These options include low-dose tricyclic antidepressants such as amitriptyline, nortriptyline, or doxepin. I acknowledged her prior negative experiences with these medications for bipolar disorder but clarified that the doses for CVS are much lower and may be tolerated, especially while she is on a mood-stabilizing antipsychotic. As a non-pharmacologic alternative, I introduced the [id number]-ysegukn vagus nerve stimulator device, Truvaga, which is an FSA-eligible purchase. I explained its mechanism of stimulating the parasympathetic ( rest and digest ) system, which could be beneficial for her gut symptoms and overall stress levels. We confirmed her headache and neck pain are stable with her current regimen of Botox, Nurtec for prevention, gabapentin PRN for CRPS neck pain flares, and Tylenol/gabapentin for mild headaches. I encouraged her to continue working on a system to improve her daily water intake. Patient was informed and verbally consented to the use of an ambient scribe for clinic note documentation during this visit. Treatment plan For Cyclic Vomiting Syndrome (Suspected) Consult with new [facility] soa consultant in December as scheduled Advised to discuss the possibility of CVS and potential treatments. * Treatment options discussed include low-dose tricyclic antidepressants (e.g., amitriptyline 10-30 mg) and the non-prescription vagus nerve stimulator device (Truvaga). Continue current management with food elimination and lifestyle adjustments, such as delaying morning coffee. Continue current chronic migraine preventative treatment plan as patient is having good clinical effect from use: Continue Botox 155-200 units IM every 12 weeks. Continue Baclofen 10mg- 1-3 x's per day. Continue Nurtec 75mg every other day, as patient has improved control of migraines while on both Botox and scheduled Nurtec. Continue Trudhesa as needed for severe or status migraine attack- as this is very effective. Previous acute migraine treatment trials: Patient is allergic to triptans. Ubrelvy- ineffective Future considerations: You may also want to research the [id number]-layvqtt device called Truvaga. It is a vagus nerve stimulator that may help with gut health and is eligible for purchase with an [employer] account. For Chronic Regional Pain Syndrome: Continue Gabapentin 100mg cap- 1-3 caps per day as needed. Pt to follow-up in 6 months or sooner prn. Coding Level of Care Code Est Pt Level 4 (20035) Diagnoses Intractable chronic migraine without aura and without status migrainosus G43.719 Status migrainosus presence: without status migrainosus Intractability: intractable Spasmodic torticollis G24.3 Cyclical vomiting R11.15
--- OUTSIDE RECORDS SUMMARY | 2025-10-23 20:47 | XMS_ITS | Clinical Summary ---
Author Organization [facility] Address [address] [facility] [address] [place] [phone] Phone Care Team Providers Care Silica Mixer Operator Name Role Phone Trevin Lee MD Primary Care Pro vider PinedaSarah neves CUSTOMER RETENTION REPRESENTATIVE Unavailable Allergies Active Allergy Reactions Criticality Noted [...] Department Care Team Description 07/31/2025 Transcribe Orders [facility] [address] [facility], [address]th [place] [address] Trevin Lee MD Nausea and vomiting, unspecified [...] Description 12/13/2025 3:00 PM EST Office Visit [facility] [address] [place] [address], [address] [place] [address] Marjorie Hays MD [address] [place] [phone] [email or web address] Health Maintenance Due Date Last Done [...] Final Result from Last 3 Months Insurance [facility] PPO EPO PPO EPO PPO EPO PPO EPO PPO EPO PPO EPO PPO EPO PPO EPO PPO EPO Care Teams Silica Mixer Operator Relationship Specialty Start Date End Date Trevin Lee MD [address] [place] [phone] PCP - General Family Medicine 09/15/17 Sarah Pineda, CUSTOMER RETENTION REPRESENTATIVE [address] [place] [phone] Family Medicine 12/09/17 Additional Source Comments The information contained in this document represents components of the legal health record. It is not the complete legal health record.[facility]
--- OUTSIDE RECORDS SUMMARY | 2025-10-23 20:47 | XMS_ITS | Clinical Summary ---
Author Organization [facility] Address [address] [place] [address] Care Team Providers Care Retail Support Manager Name Role Phone Trevin Lee MD Primary Care Provider [phone] Allergies Active Allergy Reactions Criticality Noted Date [...] 08/01/2017 8:33 PM EDT Plan of Treatment Health Maintenance Due Date Last Done Comments HEPATITIS C SCREENING 2000 Cervical Cancer Screening 2004 Pap Smear 2004 HPV Test 2013 MAMMOGRAM 2023 DTAP/TDAP/TD VACCINES (2 - Td or Tdap) 11/09/2023 11/09/2013 INFLUENZA VACCINE (#1) 2025 , 08/28/2018, 08/28/2017, Additional history exists COVID-19 IMMUNIZATION (1 - 2023-25 season) 2025 ZOSTER VACCINE (1 of 2) 2033 RSV IMMUNIZATION (1 - 1-dose 75+ series) 2058 PNEUMOCOCCAL VACCINE Aged Out 11/09/2012 No long er eligible based on patient's age to complete this topic IPV VACCINES Aged Out No longer eligi ble based on patient's age to complete this topic MENINGOCOCCAL B VACCINE Aged Out No l onger eligible based on patient's age to complete this topic [employer] Care Teams Retail Support Manager Relationship Specialty Start Date End Date Trevin Lee MD PCP - General Family Medicine 08/01/17
== END 2025-10-23 15:42 | disposition home or self-care (01) ==
LOC: HO.HSMS 14:26
PROVIDERS: PCP Nurse Practitioner Family; Visit Provider Nurse Practitioner Family
DX: G43.719 Chronic migraine without aura, intractable, without status migrainosus (principal); G24.3 Spasmodic torticollis; R11.15 Cyclical vomiting syndrome unrelated to migraine
CPT/HCPCS: 99214